=== PATIENT | male | born 1945 | race Caucasian/White ===

== ENCOUNTER 2016-11-19 09:33 | Inpatient (IN) | payer OTHER ==
[2016-11-19] MEDS ORDERED: NS 1,000 ML IV ONE (10:40)
--- NOTE | 2016-11-19 11:00 | EDPHY ---
General - History Smoking Status: Current every day smoker Narrative: CHIEF COMPLAINT: Foot pain, altered mental status HISTORY OF PRESENT ILLNESS: Patient is unable to provide his history of present illness as he is altered. EMS reports that his neighbor called than due to concern for his health and safety. The patient resides reportedly in assisted living and was found wandering from his home multiple mild yesterday. He has no recollection of this, but he does remember going out for a walk. Has complaints of bilateral foot pain with wounds. Has no headache. He has no chest pain or shortness of breath. No abdominal or urinary complaints. EMS reports he has a history of strokes and dementia but he is unable to provide any details about this. His son is not yet at bedside. REVIEW OF SYSTEMS: Ten systems reviewed and are negative unless otherwise noted in the HPI PERTINENT MEDICAL HISTORY: EXAMINATION General Appearance: Alert, no distress Head: normocephalic, atraumatic. No outward signs of trauma per Eyes: Pupils equal and round, no conjunctival pallor or injection. EOMs intact. ENT, Mouth: Mucous membranes moist. Uvula midline. No erythema or edema. Neck: Normal inspection, supple, non-tender. No meningismus. Respiratory: Lungs are clear to auscultation. No wheezing, rhonchi or crackles. Cardiovascular: Regular rate and rhythm. No murmur. Pulses intact distally. Gastrointestinal: Abdomen is soft and nontender. No tympany rigidity. No CVA tenderness. Back: non-tender, no bony abnormalities Neurological: Alert to person and place. Disoriented to time and scenario. Cranial nerves 2-12 grossly intact without facial droop. No pronator drift. No dysmetria. Strength is 5/5 in all limbs. NIH stroke scale: 1 Skin: Warm and dry, no rash. There are skin wounds to the bottom of both feet. These are consistent with blisters that have erupted.. There is erythema of the wound bed. There is no purulence or debris. No surrounding erythema, fluctuance or induration. Extremities: Nontender, no pedal edema Psychiatric: Flat affect. DIFFERENTIAL DIAGNOSES: Including but not limited to acute encephalopathy, stroke, dementia, worsening dementia, sepsis, uremia MDM: 10:35 a.m. Acute mental status change of uncertain duration. The patient does have history of stroke and dementia, but he is reportedly worsening acutely. He was found multiple miles away from his home by police 2 days ago. He has no recollection of the events of the past 2 days. His neighbor resides across from his assisted living residence has expressed ongoing concern for him. The patient has no ability to contribute to his history of present illness at this time. His son is reportedly in route was discussed with him at his time of arrival. I have ordered encephalopathy workup. He has no outward signs of acute stroke. If this were to be a strokes narrow, there is no known time of duration, thus no stroke alert has been initiated. 11:00 a.m. Son is now bedside. He reports that the patient actually resides in independent living. He does have a history of 2 strokes. One was several years ago, 1 was 2 years ago. Since then he has had dementia. However, his dementia is mild. He is normally alert person, place and time. He has difficulty with short-term memory and occasionally is forgetful but is not usually disoriented to time and place. The son reports that he was out of town this weekend, but he received phone call from the patient's residence yesterday morning says that he was found out wandering outside the home. They did not provide any other details. He reports no acute change recently. He does not know any recent illness. He does not have any falls. The patient is on Eliquis and other medications as listed. 11:[address] scan of the head is unremarkable for acute changes. There are chronic changes noted. Chest x-ray is unremarkable. Labs are within normal limits. There is no sign of delirium from illness from this. I suspect that the patient is having worsening dementia, but definitely has acute altered mental status of uncertain etiology. He is afebrile, in no acute distress. He has no meningismus on examination. No evidence of pneumonia or urinary tract infection. I have discussed the case with the hospitalist, the patient will be admitted for further care and for evaluation of residential versus memory unit placement. The son is comfortable with and preferable to this plan. SUPERVISION: Patient was evaluated in conjunction with the supervising physician. Please see their note for details. (Jared King) Discussion: PHYSICIAN DOCUMENTATION: The patient was evaluated and managed by the Physician Meteorological Aide and myself. I have reviewed the chart and agree with the findings and plan of care as documented. In addition, I examined the patient myself at 1146. History confirmed as encephalopathy, chronic wounds on balls of both feet without cellulitis. History confirmed with son. Physical findings as follows: Alert and oriented to month and place but thinks the year is 2014. Admission for further evaluation of encephalopathy including unsafe current living situation. 12-lead EKG interpreted by me; official reading is in trace master. My interpretation is sinus rhythm rate 54 no acute ischemic changes normal intervals. I am the secondary supervising physician. (Mikhail Degroot) - Objective Vital Signs: Initial Vital Signs Temperature (C) 36.9 C 11/19/16 09:40 Heart Rate 57 L 11/19/16 09:40 Respiratory Rate 14 11/19/16 09:40 Blood Pressure 144/92 H 11/19/16 09:40 O2 Sat (%) 94 11/19/16 09:40 O2 Delivery Mode Room Air Allergies/Adverse Reactions: No Known Allergies Allergy (Unverified 11/19/16 09:40) Home Medications: Medication Instructions Recorded Apixaban [Eliquis] 2.5 mg PO BID #60 tab 04/07/15 Aspirin EC [Aspirin EC 81 mg (*)] 81 mg PO DAILY #30 tab 04/07/15 Atorvastatin Calcium [Lipitor 20 20 mg PO DAILY #30 tab 04/07/15 mg (*)] Cholecalciferol Vit D3 [Vitamin D3 2,000 units PO DAILY #30 tab 04/07/15 (*)] Cyanocobalamin [Vitamin B12 (*)] 1,000 mcg PO DAILY #30 tab 04/07/15 Donepezil HCl 10 mg PO HS #30 tablet 04/07/15 Lisinopril [Zestril 5 mg (*)] 5 mg PO DAILY #30 tab 04/07/15 Nitroglycerin [Nitrostat 0.4 mg 0.4 mg SL PRN PRN #1 btl 04/07/15 (*)] Memantine HCl [Namenda 5 mg (*)] 5 mg PO HS 11/19/16 Laboratory Results: Laboratory Results 11/19/16 10:56 11/19/16 10:56 11/19/16 11/19/16 11/19/16 10:56 10:56 10:56 WBC RBC Hgb Hct MCV MCH MCHC RDW Plt Count MPV Neut % (Auto) Lymph % (Auto) [place] % (Auto) Eos % (Auto) Baso % (Auto) Nucleat RBC Rel Count Absolute Neuts (auto) Absolute Lymphs (auto) Absolute Monos (auto) Absolute Eos (auto) Absolute Basos (auto) Absolute Nucleated RBC Immature Gran % Immature Gran # PT 14.3 SEC SEC (12.0-15.0) INR 1.12 (0.83-1.16) APTT 34.0 SEC SEC (23.0-38.0) Sodium 141 mEq/L mEq/L (134-144) Potassium 4.6 mEq/L mEq/L (3.5-5.2) Chloride 107 mEq/L mEq/L (97-110) Carbon Dioxide 26 mEq/l mEq/l (22-31) Anion Gap 8 mEq/L mEq/L (8-16) BUN 39 mg/dL H mg/dL (7-23) Creatinine 1.0 mg/dL mg/dL (0.7-1.3) Estimated GFR > 60 Glucose 98 mg/dL mg/dL (70-100) Calcium 9.2 mg/dL mg/dL (8.5-10.4) Total Bilirubin 1.1 mg/dL mg/dL (0.1-1.4) Conjugated Bilirubin 0.3 mg/dL mg/dL (0.0-0.5) Unconjugated Bilirubin 0.8 mg/dL mg/dL (0.0-1.1) AST 72 IU/L H IU/L (17-59) ALT 44 IU/L IU/L (21-72) Alkaline Phosphatase 63 IU/L IU/L (38-126) Ammonia < 9.0 uMOL/L L uMOL/L (9.0-30.0) Troponin I 0.021 ng/mL ng/mL (0-0.034) NT-Pro-B Natriuret Pep 964 pg/mL H pg/mL (0-125) Total Protein 6.9 g/dL g/dL (6.3-8.2) Albumin 4.2 g/dL g/dL (3.5-5.0) Lipase 208.0 IU/L IU/L (23-300) 11/19/16 10:56 WBC 10.31 10^3/uL H 10^3/uL (3.80-9.50) RBC 4.97 10^6/uL 10^6/uL (4.40-6.38) Hgb 15.6 g/dL g/dL (13.7-17.5) Hct 46.9 % % (40.0-51.0) MCV 94.4 fL fL (81.5-99.8) MCH 31.4 pg pg (27.9-34.1) MCHC 33.3 g/dL g/dL (32.4-36.7) RDW 13.1 % % (11.5-15.2) Plt Count 140 10^3/uL L 10^3/uL (150-400) MPV 12.6 fL H fL (8.7-11.7) Neut % (Auto) 70.0 % % (39.3-74.2) Lymph % (Auto) 19.8 % % (15.0-45.0) [place] % (Auto) 8.5 % % (4.5-13.0) Eos % (Auto) 0.7 % % (0.6-7.6) Baso % (Auto) 0.6 % % (0.3-1.7) Nucleat RBC Rel Count 0.0 % % (0.0-0.2) Absolute Neuts (auto) 7.22 10^3/uL H 10^3/uL (1.70-6.50) Absolute Lymphs (auto) 2.04 10^3/uL 10^3/uL (1.00-3.00) Absolute Monos (auto) 0.88 10^3/uL H 10^3/uL (0.30-0.80) Absolute Eos (auto) 0.07 10^3/uL 10^3/uL (0.03-0.40) Absolute Basos (auto) 0.06 10^3/uL 10^3/uL (0.02-0.10) Absolute Nucleated RBC 0.00 10^3/uL 10^3/uL (0-0.01) Immature Gran % 0.4 % % (0.0-1.1) Immature Gran # 0.04 10^3/uL 10^3/uL (0.00-0.10) PT INR APTT Sodium Potassium Chloride Carbon Dioxide Anion Gap BUN Creatinine Estimated GFR Glucose Calcium Total Bilirubin Conjugated Bilirubin Unconjugated Bilirubin AST ALT Alkaline Phosphatase Ammonia Troponin I NT-Pro-B Natriuret Pep Total Protein Albumin Lipase Medications Given: Discontinued Medications Sodium Chloride (Ns) 1,000 mls @ 0 mls/hr IV ONCE ONE PRN Reason: Wide Open Stop: 11/19/16 10:41 Last Admin: 11/19/16 11:01 Dose: 1,000 mls Departure - Departure Disposition: [facility] Inpatient Acute Clinical Impression: Encephalopathy acute Dementia Qualifiers: Dementia type: unspecified type Dementia behavioral disturbance: with behavioral disturbance Qualified Code(s): F03.91 - Unspecified dementia with behavioral disturbance Blister of foot without infection Qualifiers: Encounter type: initial encounter Laterality: unspecified laterality Qualified Code(s): S90.829A - Blister (nonthermal), unspecified foot, initial encounter Condition: Good
[2016-11-19 11:07] LABS: % IMMATURE GRANULYOCYTES 0.4 % (0.0-1.1); ABSOLUTE IMMATURE GRANULOCYTES 0.04 10^3/uL (0.00-0.10); ADD DIFF? NO; ADD MORPH? NO; ADD SCAN? NO; ATYPICAL LYMPHOCYTE FLAG 10 (0-99); FRAGMENT RBC FLAG 0 (0-99); HEMATOCRIT 46.9 % (40.0-51.0); HEMOGLOBIN 15.6 g/dL (13.7-17.5); LEFT SHIFT FLG 0 (0-99); LIPEMIA HEMOLYSIS FLAG 80 (0-99); MEAN CELL HEMOGLOBIN 31.4 pg (27.9-34.1); MEAN CELL HEMOGLOBIN CONCENTR. 33.3 g/dL (32.4-36.7); MEAN CELL VOLUME 94.4 fL (81.5-99.8); MEAN PLATELET VOLUME 12.6 fL (8.7-11.7); PLATELET CLUMPS FLAG 10 (0-99); PLATELET COUNT 140 10^3/uL (150-400); RED BLOOD CELL COUNT 4.97 10^6/uL (4.40-6.38); RED CELL DISTRIBUTION WIDTH 13.1 % (11.5-15.2)
--- NOTE | 2016-11-19 11:12 | CPEKG ---
Heart Rate: 54 RR Interval: 1111 P-R Interval: 132 QRSD Interval: 102 QT Interval: 468 QTC Interval: 444 P Echo: 31 QRS Echo: 49 T Wave Echo: 71 EKG Severity - NORMAL ECG - EKG Impression: SINUS RHYTHM Electronically Signed By: Mikhail Degroot 19-Nov-2016 12:38:20
[2016-11-19 11:14] LABS: INR 1.12 (0.83-1.16); PROTIME(PATIENT) 14.3 SEC (12.0-15.0)
[2016-11-19 11:16] LABS: ALANINE AMINOTRANSFERASE 44 IU/L (21-72); ALBUMIN 4.2 g/dL (3.5-5.0); ALKALINE PHOSPHATASE 63 IU/L (38-126); ANION GAP 8 mEq/L (8-16); ASPARTATE AMINOTRANSFERASE 72 IU/L (17-59); BILIRUBIN,TOTAL 1.1 mg/dL (0.1-1.4); BILIRUBIN-CONJUGATED 0.3 mg/dL (0.0-0.5); BILIRUBIN-UNCONJUGATED 0.8 mg/dL (0.0-1.1); CALCIUM 9.2 mg/dL (8.5-10.4); CARBON DIOXIDE 26 mEq/l (22-31); CHLORIDE 107 mEq/L (97-110); GLOMERULAR FILTRATION RATE > 60; GLUCOSE 98 mg/dL (70-100); POTASSIUM 4.6 mEq/L (3.5-5.2); SODIUM 141 mEq/L (134-144); TOTAL PROTEIN 6.9 g/dL (6.3-8.2)
[2016-11-19 11:27] LABS: TROPONIN I 0.021 ng/mL (0-0.034)
[2016-11-19] MEDS ORDERED: ONDANSETRON DISINTEGRATING 4 MG TAB PO PRN (13:32)
[2016-11-19] MEDS ORDERED: ONDANSETRON 4 MG/2 ML VIAL IVP PRN (13:32)
[2016-11-19] MEDS ORDERED: ACETAMINOPHEN 325 MG TAB PO PRN (13:32)
--- NOTE | 2016-11-19 14:52 | WOCRNPDOC ---
WOCRN Advanced Assessment Note - Skin Integrity Problem, Advanced Assess Left Pedal Foot Blister Dressing Type: Adaptic, Coban, Kimberly Dressing Description: Clean/Dry, Intact Exudate Amount: Scant Exudate Characteristic(s): Serosanguinous Integumentary Issue Intervention: Visualized Under Dressing Laura Wound Tissue: Macerated Wound Bed Constitution: Smooth Tissue, De-roofed Serous Blister Site Measurement - Head-to-Toe Length X Width X Depth (cm): 5.5x7x0.1 Skin Integrity Problem Comment: No sign of infection or laura wound erythema. Wound bed clean, albeit a bit too moist. Will write orders for antimicrobial foam over contact layer. Change Q2D. Right Pedal Foot Blister Dressing Type: Adaptic, Coban, Kimberly Dressing Description: Clean/Dry, Intact Exudate Characteristic(s): Serosanguinous Integumentary Issue Intervention: Visualized Under Dressing Wound Bed Constitution: De-roofed Serous Blister Site Measurement - Head-to-Toe Length X Width X Depth (cm): 3.8x6.3x0.1 Skin Integrity Problem Comment: No sign of infection or laura wound erythema. Wound bed clean, albeit a bit too moist. Part of the roof of the blister remains around 4oclock and may reattach. Will treat similar to skin tear policy except with antimicrobial foam over contact layer. Will round again Thursday 11/23.
[2016-11-19] MEDS: NS 1,000 ML IV SCH ×2 (15:54→21:50)
--- NOTE | 2016-11-19 16:43 | PDGENHP ---
History and Physical - Chief Complaint dementia, wandered 10 miles from independent living - History of Present Illness 70 male with h/o advanced dementia was found by the police 2 days prior to admission after wandering 10 miles from his independent living facility at [facility]. His son came to check on him today and found b/l plantar deroofed blisters on his feet and brought him to the ED. He has had no fevers. No chest pain, shortness of breath, abdominal pain, N/V/D or urinary symptoms. He has h/o alcohol abuse, but according to son, quit drinking 7 yrs ago. He has done well at [facility], this is the first time he has wandered. History Information - Allergies/Home Medication List Allergies/Adverse Reactions: No Known Allergies Allergy (Unverified 11/19/16 09:40) Home Medications: Memantine HCl [Namenda 5 mg (*)] 5 mg PO HS 11/19/16 [Last Taken 11/18/16] I have personally reviewed and updated: family history, medical history, social history, surgical history - Past Medical History coronary artery disease, CVA, dementia, hypertension - Surgical History Additional surgical history: hip replacement - Family History Positive for: non-pertinent - Social History Smoking Status: Never smoked Alcohol Use: Other (h/o etoh, quit 7 yrs) Drug Use: Marijuana (smokes MJ all day every day according to pt) Review of Systems ROS: 10pt was reviewed & negative except for what was stated in HPI & below Physical Exam Temp Pulse Resp BP Pulse Ox 36.9 C 66 12 158/99 H 93 11/19/16 15:27 11/19/16 15:27 11/19/16 15:27 11/19/16 15:27 11/19/16 15:27 Constitutional: no apparent distress Eyes: PERRL Ears, Nose, Mouth, Throat: moist mucous membranes Cardiovascular: regular rate and rhythym Respiratory: no respiratory distress, clear to auscultation Gastrointestinal: normoactive bowel sounds, soft, non-tender abdomen Skin: warm Musculoskeletal: full muscle strength Neurologic: other (no facial droop, neg pronator drift, no focal neurodeficits. digits forward to 6. alert and oriented to person only) Psychiatric: poor insight, poor judgement, poor memory Lab Data & Imaging Review 11/19/16 10:56 11/19/16 10:56 WBC 10.31 10^3/uL (3.80-9.50) H 11/19/16 10:56 RBC 4.97 10^6/uL (4.40-6.38) 11/19/16 10:56 Hgb 15.6 g/dL (13.7-17.5) 11/19/16 10:56 Hct 46.9 % (40.0-51.0) 11/19/16 10:56 MCV 94.4 fL (81.5-99.8) 11/19/16 10:56 MCH 31.4 pg (27.9-34.1) 11/19/16 10:56 MCHC 33.3 g/dL (32.4-36.7) 11/19/16 10:56 RDW 13.1 % (11.5-15.2) 11/19/16 10:56 Plt Count 140 10^3/uL (150-400) L 11/19/16 10:56 MPV 12.6 fL (8.7-11.7) H 11/19/16 10:56 Neut % (Auto) 70.0 % (39.3-74.2) 11/19/16 10:56 Lymph % (Auto) 19.8 % (15.0-45.0) 11/19/16 10:56 [place] % (Auto) 8.5 % (4.5-13.0) 11/19/16 10:56 Eos % (Auto) 0.7 % (0.6-7.6) 11/19/16 10:56 Baso % (Auto) 0.6 % (0.3-1.7) 11/19/16 10:56 Nucleat RBC Rel Count 0.0 % (0.0-0.2) 11/19/16 10:56 Absolute Neuts (auto) 7.22 10^3/uL (1.70-6.50) H 11/19/16 10:56 Absolute Lymphs (auto) 2.04 10^3/uL (1.00-3.00) 11/19/16 10:56 Absolute Monos (auto) 0.88 10^3/uL (0.30-0.80) H 11/19/16 10:56 Absolute Eos (auto) 0.07 10^3/uL (0.03-0.40) 11/19/16 10:56 Absolute Basos (auto) 0.06 10^3/uL (0.02-0.10) 11/19/16 10:56 Absolute Nucleated RBC 0.00 10^3/uL (0-0.01) 11/19/16 10:56 Immature Gran % 0.4 % (0.0-1.1) 11/19/16 10:56 Immature Gran # 0.04 10^3/uL (0.00-0.10) 11/19/16 10:56 PT 14.3 SEC (12.0-15.0) 11/19/16 10:56 INR 1.12 (0.83-1.16) 11/19/16 10:56 APTT 34.0 SEC (23.0-38.0) 11/19/16 10:56 Sodium 141 mEq/L (134-144) 11/19/16 10:56 Potassium 4.6 mEq/L (3.5-5.2) 11/19/16 10:56 Chloride 107 mEq/L (97-110) 11/19/16 10:56 Carbon Dioxide 26 mEq/l (22-31) 11/19/16 10:56 Anion Gap 8 mEq/L (8-16) 11/19/16 10:56 BUN 39 mg/dL (7-23) H 11/19/16 10:56 Creatinine 1.0 mg/dL (0.7-1.3) 11/19/16 10:56 Estimated GFR > 60 11/19/16 10:56 Glucose 98 mg/dL (70-100) 11/19/16 10:56 Calcium 9.2 mg/dL (8.5-10.4) 11/19/16 10:56 Total Bilirubin 1.1 mg/dL (0.1-1.4) 11/19/16 10:56 Conjugated Bilirubin 0.3 mg/dL (0.0-0.5) 11/19/16 10:56 Unconjugated Bilirubin 0.8 mg/dL (0.0-1.1) 11/19/16 10:56 AST 72 IU/L (17-59) H 11/19/16 10:56 ALT 44 IU/L (21-72) 11/19/16 10:56 Alkaline Phosphatase 63 IU/L (38-126) 11/19/16 10:56 Ammonia < 9.0 uMOL/L (9.0-30.0) L 11/19/16 10:56 Troponin I 0.021 ng/mL (0-0.034) 11/19/16 10:56 NT-Pro-B Natriuret Pep 964 pg/mL (0-125) H 11/19/16 10:56 Total Protein 6.9 g/dL (6.3-8.2) 11/19/16 10:56 Albumin 4.2 g/dL (3.5-5.0) 11/19/16 10:56 Lipase 208.0 IU/L (23-300) 11/19/16 10:56 Assessment & Plan Assessment: Encephalopathy acute (Acute) - in setting of advanced dementia and h/o CVA, likely some volume depletion given recent wandering event. No e/o infection. No new meds. -Check brain MRI to r/o acute or subacute CVA Dementia (Acute) - Advanced. Continue Aricept and Namenda. Discussed with son pt will likely need placement in memory care to due wandering risk. -PT/OT, cog eval Blister of foot without infection (Acute) - these do not appear infected. Will request wound care consult. CAD - h/o 5v CABG. Stable, no CP. Cont outpt meds. CVA - +h/o A fib, NSR here. Cont Eliquis, ASA, statin. Azotemia - suspect pre-renal. Will give gentle IVF's Full code Dispo - CM consult requested. Will likely need placement, consider memory care given wandering history.
[2016-11-19] MEDS ORDERED: NITROGLYCERIN 0.4 MG BTL SL PRN (16:49)
[2016-11-19] MEDS: APIXABAN 2.5 MG TAB PO SCH (20:40)
[2016-11-19] MEDS: DONEPEZIL HCL 5 MG TAB PO SCH (20:41)
[2016-11-19] MEDS: MEMANTINE HCL 5 MG TAB PO SCH (20:41)
[2016-11-20 04:49] LABS: % IMMATURE GRANULYOCYTES 0.3 % (0.0-1.1); ABSOLUTE IMMATURE GRANULOCYTES 0.03 10^3/uL (0.00-0.10); ADD DIFF? NO; ADD MORPH? NO; ADD SCAN? NO; ATYPICAL LYMPHOCYTE FLAG 0 (0-99); FRAGMENT RBC FLAG 10 (0-99); HEMATOCRIT 45.4 % (40.0-51.0); HEMOGLOBIN 15.1 g/dL (13.7-17.5); LEFT SHIFT FLG 0 (0-99); LIPEMIA HEMOLYSIS FLAG 80 (0-99); MEAN CELL HEMOGLOBIN 32.2 pg (27.9-34.1); MEAN CELL HEMOGLOBIN CONCENTR. 33.3 g/dL (32.4-36.7); MEAN CELL VOLUME 96.8 fL (81.5-99.8); MEAN PLATELET VOLUME 12.1 fL (8.7-11.7); PLATELET CLUMPS FLAG 20 (0-99); PLATELET COUNT 126 10^3/uL (150-400); RED BLOOD CELL COUNT 4.69 10^6/uL (4.40-6.38); RED CELL DISTRIBUTION WIDTH 13.1 % (11.5-15.2)
[2016-11-20 05:07] LABS: ALANINE AMINOTRANSFERASE 44 IU/L (21-72); ALBUMIN 3.4 g/dL (3.5-5.0); ALKALINE PHOSPHATASE 54 IU/L (38-126); ANION GAP 8 mEq/L (8-16); ASPARTATE AMINOTRANSFERASE 54 IU/L (17-59); CALCIUM 8.6 mg/dL (8.5-10.4); CARBON DIOXIDE 23 mEq/l (22-31); CHLORIDE 111 mEq/L (97-110); CREATININE 0.9 mg/dL (0.7-1.3); GLOMERULAR FILTRATION RATE > 60; GLUCOSE 95 mg/dL (70-100); POTASSIUM 4.5 mEq/L (3.5-5.2); SODIUM 142 mEq/L (134-144); TOTAL PROTEIN 6.1 g/dL (6.3-8.2)
[2016-11-20] MEDS: NS 1,000 ML IV SCH (07:47)
[2016-11-20] MEDS: CHOLECALCIFEROL VIT D3 2,000 UNITS TAB/CAP PO SCH (09:12)
[2016-11-20] MEDS: APIXABAN 2.5 MG TAB PO SCH ×2 (09:12→20:14)
[2016-11-20] MEDS: LISINOPRIL 5 MG TAB PO SCH (09:12)
[2016-11-20] MEDS: ATORVASTATIN CALCIUM 20 MG TAB PO SCH (09:12)
[2016-11-20] MEDS: ASPIRIN EC 81 MG TAB PO SCH (09:12)
--- NOTE | 2016-11-20 10:25 | HOSPPROG ---
Hospitalist Progress Note Assessment/Plan: Encephalopathy acute (Acute) - Improving, in setting of advanced dementia and h/ o CVA, likely some volume depletion given recent prolonged wandering event. No e/o infection. No new meds. No acute changes on MRI. Dementia (Acute) - Advanced. Continue Aricept and Namenda. Discussed with son pt will likely need placement in memory care to due wandering risk. -PT/OT, cog eval planned Blister of b/l plantar surface of feet without infection (Acute) - Likely due to prolonged wandering event (found 10 miles from his home). These do not appear infected. Cont wound care. CAD - h/o 5v CABG. Stable, no CP. Cont outpt meds. CVA - +h/o A fib, NSR here. Cont Eliquis, ASA, statin. Azotemia - suspect pre-renal. Improving, cont IVF's at lower rate tonight. FEN - Change IVF's to 1/2 NS due to hyperchloremia Full code Dispo - CM consult for placement options, ?memory care Subjective: Pt is resting comfortably, has no complaints. No CP or SOB. No fevers. He has not ambulated since admission due to wounds on feet. Objective: Vital Signs Temp Pulse Resp BP Pulse Ox 37.1 C 62 16 125/87 H 95 11/20/16 08:10 11/20/16 08:10 11/20/16 08:10 11/20/16 08:10 11/20/16 08:10 Laboratory Results 11/20/16 04:28 11/20/16 04:28 11/19/16 11/20/16 11/21/16 05:59 05:59 05:59 Intake Total 1880 Output Total 400 Balance 1480 PT 14.3 SEC (12.0-15.0) 11/19/16 10:56 INR 1.12 (0.83-1.16) 11/19/16 10:56 - Physical Exam Constitutional: no apparent distress Eyes: PERRL Ears, Nose, Mouth, Throat: moist mucous membranes Cardiovascular: regular rate and rhythym Respiratory: no respiratory distress Gastrointestinal: normoactive bowel sounds, soft, non-tender abdomen Skin: warm Musculoskeletal: other (b/l plantar foot blisters deroofed, no purulence or associated erythema) Psychiatric: poor insight, poor judgement, poor memory ICD10 Worksheet Patient Problems: Problems Problem Status Onset Blister of foot without infection Acute Dementia Acute Encephalopathy acute Acute Chest pain Acute Coronary artery disease Acute Postoperative atrial fibrillation Acute S/P CABG x 5 Acute Memory loss due to medical condition Chronic
[2016-11-20] MEDS ORDERED: 1/2 NS 1,000 ML IV SCH (10:30)
[2016-11-20] MEDS: DONEPEZIL HCL 5 MG TAB PO SCH (20:15)
[2016-11-20] MEDS: MEMANTINE HCL 5 MG TAB PO SCH (20:15)
[2016-11-21 04:47] LABS: HEMATOCRIT 44.5 % (40.0-51.0); HEMOGLOBIN 15.1 g/dL (13.7-17.5); MEAN CELL HEMOGLOBIN 32.6 pg (27.9-34.1); MEAN CELL HEMOGLOBIN CONCENTR. 33.9 g/dL (32.4-36.7); MEAN CELL VOLUME 96.1 fL (81.5-99.8); RED BLOOD CELL COUNT 4.63 10^6/uL (4.40-6.38); RED CELL DISTRIBUTION WIDTH 12.9 % (11.5-15.2)
[2016-11-21 05:16] LABS: ANION GAP 7 mEq/L (8-16); CALCIUM 8.9 mg/dL (8.5-10.4); CARBON DIOXIDE 26 mEq/l (22-31); CHLORIDE 109 mEq/L (97-110); CREATININE 0.9 mg/dL (0.7-1.3); GLOMERULAR FILTRATION RATE > 60; GLUCOSE 96 mg/dL (70-100); POTASSIUM 4.5 mEq/L (3.5-5.2); SODIUM 142 mEq/L (134-144)
[2016-11-21] MEDS: CHOLECALCIFEROL VIT D3 2,000 UNITS TAB/CAP PO SCH (08:29)
[2016-11-21] MEDS: ASPIRIN EC 81 MG TAB PO SCH (08:29)
[2016-11-21] MEDS: ATORVASTATIN CALCIUM 20 MG TAB PO SCH (08:29)
[2016-11-21] MEDS: APIXABAN 2.5 MG TAB PO SCH ×2 (08:29→20:19)
[2016-11-21] MEDS: LISINOPRIL 5 MG TAB PO SCH (08:29)
--- NOTE | 2016-11-21 11:17 | PDIAF ---
- Diagnosis Diagnosis: Dementia, b/l plantar foot blisters Code Status: Full Code - Medication Management Discharge Medications: Medications to Continue on Transfer Apixaban [Eliquis] 2.5 mg PO BID #60 tab 04/07/15 [Last Taken 11/19/16] Aspirin EC [Aspirin EC 81 mg (*)] 81 mg PO DAILY #30 tab 04/07/15 [Last Taken ] Atorvastatin Calcium [Lipitor 20 mg (*)] 20 mg PO DAILY #30 tab 04/07/15 [Last Taken 11/19/16] Cholecalciferol Vit D3 [Vitamin D3 (*)] 2,000 units PO DAILY #30 tab 04/07/15 [ Last Taken 11/19/16] Cyanocobalamin [Vitamin B12 (*)] 1,000 mcg PO DAILY #30 tab 04/07/15 [Last Taken 11/19/16] Donepezil HCl 10 mg PO HS #30 tablet 04/07/15 [Last Taken 11/18/16] Lisinopril [Zestril 5 mg (*)] 5 mg PO DAILY #30 tab 04/07/15 [Last Taken ] Nitroglycerin [Nitrostat 0.4 mg (*)] 0.4 mg SL PRN PRN #1 btl 04/07/15 [Last Taken Unknown] Memantine HCl [Namenda 5 mg (*)] 5 mg PO HS 11/19/16 [Last Taken 11/18/16] Acetaminophen [Tylenol 325mg (*)] 650 mg PO Q4HRS PRN #90 tab 11/21/16 [Last Taken Unknown] Discharge Medications: Refer to the Discharge Home Medication list for PRN reason. - Orders Services needed: Home Care, Registered Nurse, Physical Therapy, Occupational Therapy Home Care Face to Face: I certify that this patient was under my care and that I had the required [id number] encounter meeting the encounter requirements on the discharge day. My findings support the fact that the patient is homebound as defined in CMS Chapter 7 Medicare Benefits Manual 30.1.1, The condition of the patient is such that there exists a normal inability to leave home and consequently, leaving home would require a considerable and taxing effort. Diet Recommendation: no restrictions on diet Additional: Wound care needed for b/l plantar foot blisters - Follow Up Care Current Providers and Referrals: Unknown,Unknown [Unknown] - As per Instructions
--- NOTE | 2016-11-21 16:12 | HOSPPROG ---
Hospitalist Progress Note Assessment/Plan: Encephalopathy acute (Acute) - Improving, in setting of advanced dementia and h/ o CVA, likely some volume depletion given recent prolonged wandering event. No e/o infection. No new meds. No acute changes on MRI. Dementia (Acute) - Advanced. Continue Aricept and Namenda. Discussed with son pt will need higher LOC, consider memory care. -PT/OT, cog eval -cont outpt meds Blisters of b/l plantar surface of feet without infection (Acute) - Likely due to prolonged wandering event (found 10 miles from his home). These do not appear infected. Cont wound care. THC use/abuse - he gives h/o smoking MJ "all day every day". This certainly increases his risk for wandering and confusion. Encourage cessation. CAD - h/o 5v CABG. Stable, no CP. Cont outpt meds. CVA - +h/o A fib, NSR here. Cont Eliquis, ASA, statin. Azotemia - suspect pre-renal. Improved with IVF's. Full code Dispo - CM following for placement options, likely dc to SNF in am (needs 3rd midnight tonight) Subjective: Pt comfortable, working with speech on cog eval. Denies pain, fevers, CP or SOB. He ambulated in halls. Taking good po. Objective: Vital Signs Temp Pulse Resp BP Pulse Ox 37.0 C 165 H 16 152/114 H 94 11/21/16 16:01 11/21/16 16:01 11/21/16 16:01 11/21/16 16:01 11/21/16 16:01 Laboratory Results 11/21/16 04:33 11/21/16 04:33 11/20/16 11/21/16 11/22/16 05:59 05:59 05:59 Intake Total 1880 1200 Output Total 400 Balance 1480 1200 PT 14.3 SEC (12.0-15.0) 11/19/16 10:56 INR 1.12 (0.83-1.16) 11/19/16 10:56 - Physical Exam Constitutional: no apparent distress Eyes: PERRL Ears, Nose, Mouth, Throat: moist mucous membranes Cardiovascular: regular rate and rhythym Respiratory: no respiratory distress, clear to auscultation Gastrointestinal: normoactive bowel sounds, soft, non-tender abdomen Skin: warm Musculoskeletal: full muscle strength Psychiatric: poor insight, poor judgement, poor memory ICD10 Worksheet Patient Problems: Problems Problem Status Onset Blister of foot without infection Acute Dementia Acute Encephalopathy acute Acute Chest pain Acute Coronary artery disease Acute Postoperative atrial fibrillation Acute S/P CABG x 5 Acute Memory loss due to medical condition Chronic
--- NOTE | 2016-11-21 16:45 | CPEKG ---
Heart Rate: 165 RR Interval: 364 QRSD Interval: 86 QT Interval: 312 QTC Interval: 517 P [place]: 0 QRS [place]: 74 T Wave [place]: 74 EKG Severity - ABNORMAL ECG - EKG Impression: SUPRAVENTRICULAR TACHYCARDIA -- New since November 19, 2016 EKG Impression: ST DEPRESSION, PROBABLY RATE RELATED EKG Impression: Possible right ventricular hypertrophy or old posterior myocardial infarction Electronically Signed By: Alejandro Lucio 21-Nov-2016 20:18:46
[2016-11-21] MEDS ORDERED: METOPROLOL TARTRATE 25 MG TAB PO ONE (16:51)
[2016-11-21] MEDS ORDERED: ADENOSINE 6 MG/2 ML VIAL IVP PRN (17:31)
[2016-11-21] MEDS: DONEPEZIL HCL 5 MG TAB PO SCH (20:19)
[2016-11-21] MEDS: MEMANTINE HCL 5 MG TAB PO SCH (20:43)
[2016-11-22] MEDS ORDERED: METOPROLOL TARTRATE 25 MG TAB PO SCH ×2 (09:00)
[2016-11-22] MEDS: ASPIRIN EC 81 MG TAB PO SCH (09:55)
[2016-11-22] MEDS: APIXABAN 2.5 MG TAB PO SCH (09:55)
[2016-11-22] MEDS: ATORVASTATIN CALCIUM 20 MG TAB PO SCH (09:55)
[2016-11-22] MEDS: LISINOPRIL 5 MG TAB PO SCH (09:55)
[2016-11-22] MEDS: CHOLECALCIFEROL VIT D3 2,000 UNITS TAB/CAP PO SCH (09:55)
--- NOTE | 2016-11-22 10:07 | PDIAF ---
- Diagnosis Diagnosis: Dementia, b/l plantar foot blisters, SVT vs A Flutter Code Status: Full Code - Medication Management Discharge Medications: Medications to Continue on Transfer Apixaban [Eliquis] 2.5 mg PO BID #60 tab 04/07/15 [Last Taken 11/19/16] Aspirin EC [Aspirin EC 81 mg (*)] 81 mg PO DAILY #30 tab 04/07/15 [Last Taken ] Atorvastatin Calcium [Lipitor 20 mg (*)] 20 mg PO DAILY #30 tab 04/07/15 [Last Taken 11/19/16] Cholecalciferol Vit D3 [Vitamin D3 (*)] 2,000 units PO DAILY #30 tab 04/07/15 [ Last Taken 11/19/16] Cyanocobalamin [Vitamin B12 (*)] 1,000 mcg PO DAILY #30 tab 04/07/15 [Last Taken 11/19/16] Donepezil HCl 10 mg PO HS #30 tablet 04/07/15 [Last Taken 11/18/16] Lisinopril [Zestril 5 mg (*)] 5 mg PO DAILY #30 tab 04/07/15 [Last Taken ] Nitroglycerin [Nitrostat 0.4 mg (*)] 0.4 mg SL PRN PRN #1 btl 04/07/15 [Last Taken Unknown] Memantine HCl [Namenda 5 mg (*)] 5 mg PO HS 11/19/16 [Last Taken 11/18/16] Acetaminophen [Tylenol 325mg (*)] 650 mg PO Q4HRS PRN #90 tab 11/21/16 [Last Taken Unknown] Metoprolol Tartrate [Lopressor 25 mg (*)] 12.5 mg PO BID #0 tab 11/22/16 [Last Taken Unknown] Discharge Medications: Refer to the Discharge Home Medication list for PRN reason. - Orders Services needed: Home Care, Registered Nurse, Physical Therapy, Occupational Therapy Home Care Face to Face: I certify that this patient was under my care and that I had the required [id number] encounter meeting the encounter requirements on the discharge day. My findings support the fact that the patient is homebound as defined in CMS Chapter 7 Medicare Benefits Manual 30.1.1, The condition of the patient is such that there exists a normal inability to leave home and consequently, leaving home would require a considerable and taxing effort. Diet Recommendation: no restrictions on diet Diet Texture: Regular Texture Diet Additional: Wound care needed for b/l plantar foot blisters - Follow Up Care Current Providers and Referrals: Unknown,Unknown [Unknown] - As per Instructions
--- NOTE | 2016-11-22 10:11 | PDDCSUM ---
Discharge Summary Discharge Summary: DISCHARGE DIAGNOSES: -Acute encephalopathy multifactorial -Wandering -Marijuana abuse -multiple open skin lesions from friction plantar surface of both feet from extensive walking -dementia -supraventricular tachycardia versus atrial flutter; chads Vasc score 1, aspirin therapy indicated HOSPITAL COURSE SUMMARY: This patient with known dementia and ongoing daily marijuana use was found wandering and was 10 miles from his home confused. He had extensive blisters on the plantar aspects of both feet that had opened. His pro in the hospital. There is no evidence of infection, cardiac illness, pulmonary illness, or internal organ dysfunction. He was treated conservatively here and had good improvement back to his baseline dementia. His foot wounds were treated with wound care nursing. On the 3rd day of his hospitalization the patient developed some tachycardia and was noted to have what appears is most likely SVT though atrial flutter could not be ruled out. There was no symptom or sign of angina or heart failure with this. It resolved spontaneously when the patient coughed. The episode lasted several minutes and did not recur. In the event that this was atrial flutter, and his chads Vasc score is at 1, and particularly given his dementia and wandering aspirin is indicated as opposed to anticoagulation. At this point the patient is medically stable for discharge from the hospital. However due to his mentation issues as well as his foot wounds as well as other ongoing problems he will require more supervision and care than can be afforded him at home at this time. He is therefore transferred to local [facility]dc facility for ongoing rehabilitation, wound care, supervision of activities and medications. MEDICATION CHANGES: Addition of daily aspirin 81 mg, and metoprolol 12.5 mg twice daily FOLLOW-UP PLAN: Referral now to physicians at the fdc facility, followed by return to his primary care physician upon discharge from that facility Greater than 35 minutes bedside and care coordination time today
[2016-11-22] MEDS ORDERED: PNEUMOC 13-VAL CONJ-DIP CRM/PF 0.5 ML SYR IM ONE (11:03)
[2016-11-22 11:14] VITALS: BP 158/100; PULSE 51; RESP 15; TEMP 98.3; O2SAT 91
== END 2016-11-22 14:26 | DRG 71 ==
LOC: EDUNIT# → F3E 15:22 → F2W 11-21 17:55
PROVIDERS: ADMIT Hospitalist; ATTEND Hospitalist
DX: G93.49 Other encephalopathy (principal); F03.91 Unspecified dementia, unspecified severity, with behavioral disturbance; I47.1 Supraventricular tachycardia; F12.10 Cannabis abuse, uncomplicated; S90.821A Blister (nonthermal), right foot, initial encounter; S90.822A Blister (nonthermal), left foot, initial encounter; I25.10 Atherosclerotic heart disease of native coronary artery without angina pectoris; I10 Essential (primary) hypertension; Z91.83 Wandering in diseases classified elsewhere; Z86.73 Personal history of transient ischemic attack (TIA), and cerebral infarction without residual deficits; Z96.649 Presence of unspecified artificial hip joint; Z72.0 Tobacco use
CPT/HCPCS: 80305; 92523-GN; 97116-GP; 97162-GP; 97165-GO; 97530-GO; G8978-GP-CJ; G8979-GP-CI; G8987-GO-CI; G8988-GO-CI; G9168-GN-CL; G9169-GN-CK; J0153

== ENCOUNTER 2017-07-20 20:17 | Inpatient (IN) | payer OTHER ==
--- NOTE | 2017-07-20 20:21 | EDPHY ---
H & P Time Seen by Provider: 07/20/17 20:21 HPI/ROS: CHIEF COMPLAINT: Acute dyspnea HISTORY OF PRESENT ILLNESS: The patient's history is limited by advanced dementia. He is brought in by his his neighbor with a reported history of severe intermittent dyspnea over the past day. He has had no history of fever, cough or congestion. The patient does report dyspnea in the ED. The patient lives in a independent living facility. He denies acute pain. The patient does have a history of coronary artery bypass grafting in 2014 which was complicated by postoperative AFib. The patient also has a history of CVA x2. The patient was hospitalized in October of this year at after he was found wandering from his independent living facility. At that time the patient appears to have been on Eliquis. The patient was noted in triage to have a heart rate of 255 was brought emergently into the resuscitation room. REVIEW OF SYSTEMS: A comprehensive 10 point review of systems is unobtainable secondary to his severe dementia. Source: Patient Exam Limitations: No limitations - Medical/Surgical History Hx Asthma: No Hx Chronic Respiratory Disease: No Hx Diabetes: No Hx Cardiac Disease: Yes Hx Renal Disease: No Hx Cirrhosis: No Hx Alcoholism: No Hx HIV/AIDS: No Hx Splenectomy or Spleen Trauma: No Other PMH: HTN, DEMENTIA, CVA'S X 2 2011. RIGHT HIP REPLACEMENT. Bypass X4 - Social History Smoking Status: Never smoked - Physical Exam Exam: General Appearance: Elderly male, mild respiratory distress Eyes: Pupils equal and round no pallor or injection ENT, Mouth: Mucous membranes moist Respiratory: There are no retractions, lungs are clear to auscultation Cardiovascular: Extreme tachycardia, regular rate Gastrointestinal: Abdomen is soft and nontender, no masses, bowel sounds normal Neurological: 5/5 strength all 4 extremities, lower and oriented x1 which is baseline Skin: Warm and dry, no rashes Musculoskeletal: Neck is supple nontender Extremities: symmetrical, full range of motion Constitutional: Initial Vital Signs Heart Rate 258 H 07/20/17 20:28 Respiratory Rate 30 H 07/20/17 20:28 Blood Pressure 145/80 H 07/20/17 20:28 O2 Sat (%) 93 07/20/17 20:28 O2 Delivery Mode Nasal Cannula O2 (L/minute) 2 Allergies/Adverse Reactions: No Known Allergies Allergy (Unverified 07/20/17 20:22) Home Medications: Medication Instructions Recorded Apixaban [Eliquis] 2.5 mg PO BID #60 tab 04/07/15 Aspirin EC [Aspirin EC 81 mg (*)] 81 mg PO DAILY #30 tab 04/07/15 Donepezil HCl 10 mg PO HS #30 tablet 04/07/15 Lisinopril [Zestril 5 mg (*)] 5 mg PO DAILY #30 tab 04/07/15 Nitroglycerin [Nitrostat 0.4 mg 0.4 mg SL PRN PRN #1 btl 04/07/15 (*)] Memantine HCl [Namenda 5 mg (*)] 5 mg PO HS 11/19/16 Atorvastatin Calcium [Lipitor 20 10 mg PO HS 07/20/17 mg (*)] Cholecalciferol Vit D3 [Vitamin D3 1,000 units PO DAILY 07/20/17 (*)] Medical Decision Making - Diagnostics EKG Interpretation: EKG: Complete interpretation has been separately recorded in the [employer] archive. Summary impression: Atrial flutter with 2-1 conduction Imaging Results: Chest x-ray AP: Images reviewed by myself, cardiomegaly and congestive heart failure present. Procedures: Procedure: Limited transthoracic echocardiogram. A limited transthoracic echocardiogram was performed and interpreted by myself for cardiomegaly. Limited transthoracic echocardiogram: The pericardium was visualized and found to be negative for pericardial fluid. Cardiac activity was present. The study was negative for pericardial effusion. ED Course/Re-evaluation: The patient presents to the ED with a heart rate of 250. He was brought emergently into the resuscitation room. He was placed on a threat monitoring analyst which demonstrated a narrow complex tachycardia. Patient received (2) 12 mg boluses of adenosine. This converted the patient's neuro complex tachycardia with a rate of 250 to neuro complex tachycardia with a rate of 140 consistent with atrial flutter. The patient received a 25 mg diltiazem bolus and will be started on a diltiazem drip. The patient was noted to have congestive heart failure and cardiomegaly on his chest x-ray. He was re-examined at 9:00 p.m.. His heart rate is currently 140, a flutter with 2-1 conduction is present, blood pressure 114/81. The patient is currently on nasal cannula oxygen with an O2 sat of 97% The patient will require admission to the hospital. I discussed the case with Dr. Peña from the hospitalist service. The patient received 20 mg of IV Lasix as he has evidence of CHF on his chest x-ray. Consultation was made with Dr. Cervantes from Cardiology. He has requested the patient be kept NPO after midnight. Differential Diagnosis: Differential diagnosis considered includes pulmonary edema, arrhythmia, myocardial infarction, dehydration, metabolic abnormality, renal failure Critical Care Time: Critical care time exclusive of procedures and exclusive of the PA's time was 35 minutes, performed by myself, Erick Vinson MD. The patient presents to the ED with severe tachycardia with a heart rate in the 250s. The patient received chemical cardioversion with adenosine and diltiazem. He received diltiazem bolus and was started on a diltiazem drip. The patient has evidence of acute congestive heart failure from his arrhythmia. The patient received IV Lasix. - Data Points Laboratory Results: Laboratory Results 07/20/17 20:35 07/20/17 20:35 07/20/17 07/20/17 20:35 20:35 WBC 10.96 10^3/uL H 10^3/uL (3.80-9.50) RBC 4.90 10^6/uL 10^6/uL (4.40-6.38) Hgb 16.1 g/dL g/dL (13.7-17.5) Hct 48.0 % % (40.0-51.0) MCV 98.0 fL fL (81.5-99.8) MCH 32.9 pg pg (27.9-34.1) MCHC 33.5 g/dL g/dL (32.4-36.7) RDW 13.5 % % (11.5-15.2) Plt Count 142 10^3/uL L 10^3/uL (150-400) MPV 12.7 fL H fL (8.7-11.7) Neut % (Auto) 69.0 % % (39.3-74.2) Lymph % (Auto) 20.6 % % (15.0-45.0) [place] % (Auto) 8.5 % % (4.5-13.0) Eos % (Auto) 0.6 % % (0.6-7.6) Baso % (Auto) 0.8 % % (0.3-1.7) Nucleat RBC Rel Count 0.0 % % (0.0-0.2) Absolute Neuts (auto) 7.55 10^3/uL H 10^3/uL (1.70-6.50) Absolute Lymphs (auto) 2.26 10^3/uL 10^3/uL (1.00-3.00) Absolute Monos (auto) 0.93 10^3/uL H 10^3/uL (0.30-0.80) Absolute Eos (auto) 0.07 10^3/uL 10^3/uL (0.03-0.40) Absolute Basos (auto) 0.09 10^3/uL 10^3/uL (0.02-0.10) Absolute Nucleated RBC 0.00 10^3/uL 10^3/uL (0-0.01) Immature Gran % 0.5 % % (0.0-1.1) Immature Gran # 0.06 10^3/uL 10^3/uL (0.00-0.10) Sodium 145 mEq/L H mEq/L (134-144) Potassium 4.3 mEq/L mEq/L (3.5-5.2) Chloride 109 mEq/L mEq/L (97-110) Carbon Dioxide 21 mEq/l L mEq/l (22-31) Anion Gap 15 mEq/L mEq/L (8-16) BUN 35 mg/dL H mg/dL (7-23) Creatinine 1.4 mg/dL H mg/dL (0.7-1.3) Estimated GFR 50 Glucose 226 mg/dL H mg/dL (70-100) Calcium 9.1 mg/dL mg/dL (8.5-10.4) Troponin I 0.028 ng/mL ng/mL (0.000-0.034) Medications Given: Discontinued Medications Adenosine (Adenosine) 12 mg IVP EDNOW ONE Stop: 07/20/17 20:34 Last Admin: 07/20/17 20:30 Dose: 12 mg Adenosine (Adenosine) 12 mg IVP EDNOW ONE Stop: 07/20/17 20:40 Last Admin: 07/20/17 20:34 Dose: 12 mg Diltiazem HCl (Cardizem 25 Mg/5 Ml Vial) 25 mg IVP EDNOW ONE Stop: 07/20/17 20:42 Last Admin: 07/20/17 20:47 Dose: 25 mg Furosemide (Lasix Injection) 20 mg IVP EDNOW ONE Stop: 07/20/17 21:11 Last Admin: 07/20/17 21:29 Dose: 20 mg Sodium Chloride (Ns) 1,000 mls @ 3,000 mls/hr IV ONCE ONE Stop: 07/20/17 21:00 Last Admin: 07/20/17 20:44 Dose: 1,000 mls Diltiazem/Dextrose (Diltiazem 125mg/125ml (Premix)) 125 mls @ 0 mls/hr IV EDNOW ONE; As Directed PRN Reason: Protocol Stop: 07/20/17 21:01 Last Admin: 07/20/17 20:54 Dose: 125 mls Departure - Departure Disposition: [facility] Inpatient Acute Clinical Impression: Atrial flutter, Acute exacerbation of congestive heart failure Condition: Fair
[2017-07-20] MEDS ORDERED: ADENOSINE 6 MG/2 ML VIAL IVP ONE ×2 (20:33→20:39)
--- NOTE | 2017-07-20 20:38 | CPEKG ---
Heart Rate: 135 RR Interval: 444 P-R Interval: 172 QRSD Interval: 94 QT Interval: 292 QTC Interval: 438 P [place]: 231 QRS [place]: 79 T Wave [place]: -38 EKG Severity - ABNORMAL ECG - EKG Impression: ATRIAL FLUTTER WITH 2:1 AV BLOCK Electronically Signed By: Erick Vinson 20-Jul-2017 21:39:08
[2017-07-20] MEDS ORDERED: DILTIAZEM 125 MG in D5W 125 ML IV ONE (20:41)
[2017-07-20] MEDS ORDERED: DILTIAZEM 25 MG/5 ML VIAL IVP ONE (20:41)
[2017-07-20] MEDS ORDERED: NS 1,000 ML IV ONE (20:41)
[2017-07-20 20:47] LABS: PLATELET COUNT 142 10^3/uL (150-400)
[2017-07-20] MEDS ORDERED: DILTIAZEM HCL/D5W 125 ML IV ONE (21:00)
[2017-07-20] MEDS ORDERED: FUROSEMIDE 20 MG/2 ML VIAL IVP ONE (21:10)
[2017-07-20] MEDS ORDERED: ONDANSETRON 4 MG/2 ML VIAL IVP PRN (21:28)
[2017-07-20] MEDS ORDERED: ONDANSETRON DISINTEGRATING 4 MG TAB PO PRN (21:28)
[2017-07-20] MEDS ORDERED: ACETAMINOPHEN 325 MG TAB PO PRN (21:28)
--- NOTE | 2017-07-20 22:06 | PDGENHP ---
History and Physical - Chief Complaint Acute shortness of breath - History of Present Illness 71-year-old male presenting with acute shortness of breath characterized as visible respiratory distress with associated lightheadedness, symptoms noted by his neighbor and friend who was ambulating with him down the hallway at [facility] on the evening of presentation. She reports that he has had similar symptoms occurring intermittently over the past month, they are exacerbated by ambulating down the hallway, alleviated by stopping and resting. They have not been accompanied by any expression of chest pain or palpitations, and the patient otherwise denies any recent infectious symptoms. On the evening of this presentation, the aforementioned symptoms began while they were ambulating , and were not particularly alleviated with rest. The duration was ongoing and the patient was evaluated in the emergency department, his heart rate was around 260. The patient otherwise did not express any discomfort and he received adenosine x2 doses, which demonstrated appeared to be 2-1 atrial flutter. The patient is otherwise unable to provide any meaningful history other than he feels "cool ". History Information - Allergies/Home Medication List Allergies/Adverse Reactions: No Known Allergies Allergy (Unverified 07/20/17 20:22) Home Medications: Memantine HCl [Namenda 5 mg (*)] 5 mg PO HS 11/19/16 [Last Taken 07/20/17] Atorvastatin Calcium [Lipitor 20 mg (*)] 10 mg PO HS 07/20/17 [Last Taken ] Cholecalciferol Vit D3 [Vitamin D3 (*)] 1,000 units PO DAILY 07/20/17 [Last Taken 07/20/17] I have personally reviewed and updated: family history, medical history, social history, surgical history - Past Medical History coronary artery disease (With remote history of stent placement, 5 vessel CABG in 2014), CVA (X2), dementia (Vascular), hypertension Additional medical history: Transient SVT/atrial flutter in October of 2016. Episode of wandering with THC intoxication and dementia October 2016 - Surgical History Reports: coronary bypass surgery (5 vessel comma 2014) Additional surgical history: hip replacement - Family History Positive for: non-pertinent (Son reportedly healthy) - Social History Smoking Status: Never smoked Alcohol Use: None Drug Use: Marijuana (Regularly) Additional social history: Lives at [facility], has a neighbor/friend who ambulates with him daily Review of Systems Review of Systems: ROS: 10pt was reviewed & negative except for what was stated in HPI & below Respiratory: Reports: shortness of breath Physical Exam Physical Exam: Temp Pulse Resp BP Pulse Ox 36.3 C 147 H 24 H 117/87 H 95 07/20/17 20:51 07/20/17 21:31 07/20/17 21:31 07/20/17 21:31 07/20/17 21:31 O2 (L/minute) 2 Constitutional: no apparent distress, appears nourished, not in pain Eyes: PERRL, anicteric sclera, EOMI Ears, Nose, Mouth, Throat: moist mucous membranes, hearing normal, ears appear normal, no oral mucosal ulcers Cardiovascular: irregularly irregular, tachycardia, edema (Trace bilateral lower extremity), No systolic murmur Respiratory: inspiratory crackles, No reduced air movement, No expiratory wheeze , No bronchial breath sounds, No respiratory distress Gastrointestinal: normoactive bowel sounds, soft, non-tender abdomen, no palpable masses, No distension Genitourinary: no bladder fullness, no bladder tenderness Skin: other (Half cm benign-appearing hyperplastic nevi left back, warm skin, no visible rash) Neurologic: weakness (Motor strength 5/5 bilateral upper and lower extremities) , other (Alert awake oriented x2 to person and place not to time), No facial droop Psychiatric: not anxious, flat affect (Withdrawn but interacts when spoken to), other (Concentration 7/7, naming 3/3, seems very relaxed), No agitated Lab Data & Imaging Review 07/20/17 20:35 07/20/17 20:35 WBC 10.96 10^3/uL (3.80-9.50) H 07/20/17 20:35 RBC 4.90 10^6/uL (4.40-6.38) 07/20/17 20:35 Hgb 16.1 g/dL (13.7-17.5) 07/20/17 20:35 Hct 48.0 % (40.0-51.0) 07/20/17 20:35 MCV 98.0 fL (81.5-99.8) 07/20/17 20:35 MCH 32.9 pg (27.9-34.1) 07/20/17 20:35 MCHC 33.5 g/dL (32.4-36.7) 07/20/17 20:35 RDW 13.5 % (11.5-15.2) 07/20/17 20:35 Plt Count 142 10^3/uL (150-400) L 07/20/17 20:35 MPV 12.7 fL (8.7-11.7) H 07/20/17 20:35 Neut % (Auto) 69.0 % (39.3-74.2) 07/20/17 20:35 Lymph % (Auto) 20.6 % (15.0-45.0) 07/20/17 20:35 [place] % (Auto) 8.5 % (4.5-13.0) 07/20/17 20:35 Eos % (Auto) 0.6 % (0.6-7.6) 07/20/17 20:35 Baso % (Auto) 0.8 % (0.3-1.7) 07/20/17 20: Nucleat RBC Rel Count 0.0 % (0.0-0.2) 07/20/17 20:35 Absolute Neuts (auto) 7.55 10^3/uL (1.70-6.50) H 07/20/17 20:35 Absolute Lymphs (auto) 2.26 10^3/uL (1.00-3.00) 07/20/17 20:35 Absolute Monos (auto) 0.93 10^3/uL (0.30-0.80) H 07/20/17 20:35 Absolute Eos (auto) 0.07 10^3/uL (0.03-0.40) 07/20/17 20:35 Absolute Basos (auto) 0.09 10^3/uL (0.02-0.10) 07/20/17 20:35 Absolute Nucleated RBC 0.00 10^3/uL (0-0.01) 07/20/17 20:35 Immature Gran % 0.5 % (0.0-1.1) 07/20/17 20:35 Immature Gran # 0.06 10^3/uL (0.00-0.10) 07/20/17 20:35 Sodium 145 mEq/L (134-144) H 07/20/17 20:35 Potassium 4.3 mEq/L (3.5-5.2) 07/20/17 20:35 Chloride 109 mEq/L (97-110) 07/20/17 20:35 Carbon Dioxide 21 mEq/l (22-31) L 07/20/17 20:35 Anion Gap 15 mEq/L (8-16) 07/20/17 20:35 BUN 35 mg/dL (7-23) H 07/20/17 20:35 Creatinine 1.4 mg/dL (0.7-1.3) H 07/20/17 20:35 Estimated GFR 50 07/20/17 20:35 Glucose 226 mg/dL (70-100) H 07/20/17 20:35 Calcium 9.1 mg/dL (8.5-10.4) 07/20/17 20:35 Troponin I 0.028 ng/mL (0.000-0.034) 07/20/17 20:35 Visualized and Interpreted Chest x-ray results: Yes Chest X-Ray results: other (Visible interstitial lung markings, cardiomegaly which is new when compared to previous chest x-rays) Visualized and Interpreted EKG results: Yes EKG Interpretation: Positive for: other (Rapid atrial arrhythmia) Assessment & Plan Assessment: 71-year-old male presenting with atrial flutter and rapid ventricular response resulting in mild acute diastolic congestive heart failure exacerbation Plan: 1. Atrial flutter. Acute rapid ventricular response, new problem this provider , further workup indicated. Discussed with Dr. Erick Vinson, he has reported to me that the patient received 2 doses of adenosine in the emergency department , and his rate went from approximately 260 to around 150, is our interpretation the patient was most likely experiencing 1-1 flutter conduction and then this went to 2 to 1 conduction after the adenosine -patient received IV diltiazem bolus, now started on diltiazem drip, will be monitored on the PCU, not currently experiencing hypotension -get TSH level, get echocardiogram, check respiratory viral panel and urinalysis for potential infectious precipitants -check drug screen given his history of marijuana use, to rule out concomitant ingestants which may have played a part in this presentation -reviewed outside records including 11/22/[address] Trevino, he reports that the patient experienced episode of self-limited SVT versus atrial flutter, discharged on aspirin, metoprolol, patient has been initiated on Eliquis in the interim, continue -cardiology has been consulted, they will consider DC cardioversion in the a.m. if the patient does not chemically cardiovert overnight -I suspect the patient will not require a transesophageal echocardiogram as he is currently on Eliquis, although is unclear as to his adherence in the setting of his dementia, will continue the Eliquis this evening 2. Acute diastolic congestive heart failure exacerbation. Evidenced by increased interstitial markings on chest x-ray, cardiomegaly, some lower extremity edema, most likely rate related in the setting of uncontrolled a flutter -I suspect the patient has been experiencing intermittent episodes of asymptomatic atrial flutter given that his friend accompanying him describes events similar to today's presentation occurring over the past month, and patient's previous chest x-rays did not demonstrate significant cardiomegaly -will get echocardiogram -will administer 1 dose of IV Lasix in the emergency department, hold on further Lasix until we see what tomorrow's creatinine level is, urine output 3. Acute kidney injury. Reviewed outside records and labs, his most recent serum creatinine level from 02/01/2017 was 1.0, currently 1.4 with a BUN of 35, most likely secondary to renal hypoperfusion in the setting of poor cardiac output and rapid a flutter/CHF -giving Lasix now, gauge effect -monitor creatinine, I/O, weight 4. Chronic encephalopathy. Patient with known vascular dementia in the setting of previous CVA, MRI from this year demonstrating bilateral cerebellar infarcts , thalamic, basal ganglia infarcts as well -patient's cognition is likely also affected by his chronic THC dependency -patient currently participating in his care, but would recommend involving the patient's MD GOMEZ, his son, regarding any interventional decisions for above 5. Hypertension. Chronic, hold TRAVON-inhibitor given acute kidney injury Diet. Cardiac diet, NPO in a.m. for possible cardioversion Prophylaxis. High risk patient, currently on Eliquis 2.5 Code. Full at present, his son Sonu is MD GOMEZ Disposition. Anticipated discharge uncertain this time, anticipated length stay is greater than 48 hours warranting inpatient admission for reasonable medical necessity including uncontrolled atrial flutter resulting in acute diastolic congestive heart failure exacerbation complicated by acute kidney injury.
[2017-07-20] MEDS: APIXABAN 2.5 MG TAB PO SCH (22:59)
--- NOTE | 2017-07-21 02:37 | PDMN ---
Medical Necessity Medical necessity: C/M review: est. > 2 MN LOS for eval and TX of acute atrial flutter with rapid ventricular response, acute congestive heart failure exacerbation, acute kidney injury requiring IV Adenosine x 2 in ED, IV Diltiazem bolus, in ED, IV Lasix x 1 in ED, planned Cardiology consult, echocardiogram, possible 07/21/2017 cardioversion, ongoing IV Diltiazem infusion , cardiac monitoring, acute inpt PT/OT/ST, comorbid chronic encephalopathy, vascular dementia, hypertension, hx CVA x 2, CAD with stent placement, CABG, transient SVT/atrial flutter 10/2016 per H/P.
[2017-07-21 05:31] LABS: PLATELET COUNT 116 10^3/uL (150-400)
[2017-07-21 05:44] LABS: INR 1.32 (0.83-1.16); PROTIME(PATIENT) 16.4 SEC (12.0-15.0)
[2017-07-21] MEDS ORDERED: LISINOPRIL 5 MG TAB PO SCH (09:00)
[2017-07-21] MEDS: DILTIAZEM HCL/D5W 125 ML IV SCH ×2 (09:13→20:32)
[2017-07-21] MEDS: CHOLECALCIFEROL VIT D3 1,000 UNITS TAB PO SCH (09:15)
[2017-07-21] MEDS: APIXABAN 2.5 MG TAB PO SCH ×2 (09:16→10:51)
[2017-07-21] MEDS: ASPIRIN EC 81 MG TAB PO SCH (09:16)
[2017-07-21] MEDS ORDERED: AMIODARONE HCL 100 ML IV ONE ×2 (09:20→15:24)
--- NOTE | 2017-07-21 09:28 | PDCARCONS ---
Cardiology Consult Reason for Consult: Atrial flutter with rapid ventricular response. Shortness of breath Chief Complaint: Shortness of breath Requesting Physician: Dr. Mare Vinson History of Present Illness: 71-year-old male known to our practice. He presented yesterday to the emergency department with acute onset of shortness of breath and was brought in from his independent living facility. He has a history of advanced vascular dementia, has had 2 prior CVAs in the past He was noted to have a heart rate of 250 beats per minute in the emergency department. He received 2 boluses of adenosine with decrease in heart rate to 150 beats per minute. Initial presentation was thought to be atrial flutter with 1 to 1 conduction to the ventricles. I interviewed the patient on 2 [place] telemetry floor. Patient has significant speech issues and is a very poor historian. he tells me that he feels fine this morning. He denies any chest pain. On telemetry his ventricular rate is 140 beats per minute. History Information - Allergies/Home Medication List Allergies/Adverse Reactions: No Known Allergies Allergy (Unverified 07/20/17 20:22) Home Medications: Memantine HCl [Namenda 5 mg (*)] 5 mg PO HS 11/19/16 [Last Taken 07/20/17] Atorvastatin Calcium [Lipitor 20 mg (*)] 10 mg PO HS 07/20/17 [Last Taken ] Cholecalciferol Vit D3 [Vitamin D3 (*)] 1,000 units PO DAILY 07/20/17 [Last Taken 07/20/17] I have personally reviewed and updated: family history, medical history, social history, surgical history Past Medical History: - Past Medical History coronary artery disease, CVA, hypertension - Surgical History Reports: coronary bypass surgery - Social History Smoking Status: Never smoked Alcohol Use: None Drug Use: Marijuana (Regularly) Physical Exam Physical Exam: Temp Pulse Resp BP Pulse Ox 36.5 C 144 H 18 122/98 H 94 07/21/17 07:44 07/21/17 09:13 07/21/17 07:44 07/21/17 07:44 07/21/17 07:44 O2 (L/minute) 2 Constitutional: no apparent distress, appears nourished Eyes: PERRL, EOMI Ears, Nose, Mouth, Throat: moist mucous membranes Cardiovascular: regular rate and rhythym, systolic murmur Respiratory: no respiratory distress, clear to auscultation Gastrointestinal: normoactive bowel sounds Skin: warm Psychiatric: poor insight, poor memory Lab and Imaging 07/21/17 05:03 07/21/17 05:03 WBC 9.34 10^3/uL (3.80-9.50) 07/21/17 05:03 RBC 4.48 10^6/uL (4.40-6.38) 07/21/17 05:03 Hgb 14.6 g/dL (13.7-17.5) 07/21/17 05:03 Hct 42.7 % (40.0-51.0) 07/21/17 05:03 MCV 95.3 fL (81.5-99.8) 07/21/17 05:03 MCH 32.6 pg (27.9-34.1) 07/21/17 05:03 MCHC 34.2 g/dL (32.4-36.7) 07/21/17 05:03 RDW 13.4 % (11.5-15.2) 07/21/17 05:03 Plt Count 116 10^3/uL (150-400) L 07/21/17 05:03 MPV 12.8 fL (8.7-11.7) H 07/21/17 05:03 Neut % (Auto) 65.7 % (39.3-74.2) 07/21/17 05:03 Lymph % (Auto) 22.3 % (15.0-45.0) 07/21/17 05:03 [place] % (Auto) 10.5 % (4.5-13.0) 07/21/17 05:03 Eos % (Auto) 0.6 % (0.6-7.6) 07/21/17 05:03 Baso % (Auto) 0.5 % (0.3-1.7) 07/21/17 05:03 Nucleat RBC Rel Count 0.0 % (0.0-0.2) 07/21/17 05:03 Absolute Neuts (auto) 6.13 10^3/uL (1.70-6.50) 07/21/17 05:03 Absolute Lymphs (auto) 2.08 10^3/uL (1.00-3.00) 07/21/17 05:03 Absolute Monos (auto) 0.98 10^3/uL (0.30-0.80) H 07/21/17 05:03 Absolute Eos (auto) 0.06 10^3/uL (0.03-0.40) 07/21/17 05:03 Absolute Basos (auto) 0.05 10^3/uL (0.02-0.10) 07/21/17 05:03 Absolute Nucleated RBC 0.00 10^3/uL (0-0.01) 07/21/17 05:03 Immature Gran % 0.4 % (0.0-1.1) 07/21/17 05:03 Immature Gran # 0.04 10^3/uL (0.00-0.10) 07/21/17 05:03 PT 16.4 SEC (12.0-15.0) H 07/21/17 05:03 INR 1.32 (0.83-1.16) H 07/21/17 05:03 APTT 34.7 SEC (23.0-38.0) 07/21/17 05:03 Sodium 144 mEq/L (134-144) 07/21/17 05:03 Potassium 3.8 mEq/L (3.5-5.2) 07/21/17 05:03 Chloride 110 mEq/L (97-110) 07/21/17 05:03 Carbon Dioxide 21 mEq/l (22-31) L 07/21/17 05:03 Anion Gap 13 mEq/L (8-16) 07/21/17 05:03 BUN 33 mg/dL (7-23) H 07/21/17 05:03 Creatinine 1.3 mg/dL (0.7-1.3) 07/21/17 05:03 Estimated GFR 54 07/21/17 05:03 Glucose 94 mg/dL (70-100) 07/21/17 05:03 Calcium 8.8 mg/dL (8.5-10.4) 07/21/17 05:03 Magnesium 1.9 mg/dL (1.6-2.3) 07/21/17 05:03 Total Bilirubin 0.4 mg/dL (0.1-1.4) 07/21/17 05:03 AST 68 IU/L (17-59) H 07/21/17 05:03 ALT 101 IU/L (21-72) H 07/21/17 05:03 Alkaline Phosphatase 69 IU/L (38-126) 07/21/17 05:03 Troponin I 0.132 ng/mL (0.000-0.034) H 07/21/17 05:03 Total Protein 5.8 g/dL (6.3-8.2) L 07/21/17 05:03 Albumin 3.5 g/dL (3.5-5.0) 07/21/17 05:03 TSH 3.130 uIU/mL (0.465-4.680) 07/20/17 21:37 Urine Color YELLOW 07/21/17 04:45 Urine Appearance CLEAR 07/21/17 04:45 Urine pH 5.0 (5.0-7.5) 07/21/17 04:45 Ur Specific [place] 1.012 (1.002-1.030) 07/21/17 04:45 Urine Protein NEGATIVE (NEGATIVE) 07/21/17 04:45 Urine Ketones NEGATIVE (NEGATIVE) 07/21/17 04:45 Urine Blood NEGATIVE (NEGATIVE) 07/21/17 04:45 Urine Nitrate NEGATIVE (NEGATIVE) 07/21/17 04:45 Urine Bilirubin NEGATIVE (NEGATIVE) 07/21/17 04:45 Urine Urobilinogen NEGATIVE EU (0.2-1.0) 07/21/17 04:45 Ur Leukocyte Esterase NEGATIVE (NEGATIVE) 07/21/17 04:45 Urine Glucose NEGATIVE (NEGATIVE) 07/21/17 04:45 Urine Opiates Screen NEGATIVE ng/mL (NEGATIVE) 07/21/17 04:45 Urine Barbiturates NEGATIVE ng/mL (NEGATIVE) 07/21/17 04:45 Ur Phencyclidine Scrn NEGATIVE ng/mL (NEGATIVE) 07/21/17 04:45 Ur Amphetamines Screen NEGATIVE ng/mL (NEGATIVE) 07/21/17 04:45 U Benzodiazepines Scrn NEGATIVE ng/mL (NEGATIVE) 07/21/17 04:45 Urine Cocaine Screen NEGATIVE ng/mL (NEGATIVE) 07/21/17 04:45 U Marijuana (THC) Screen > 800 ng/mL (NEGATIVE) 07/21/17 04:45 Visualized and Interpreted Chest x-ray results: Yes Visualized and Interpreted EKG results: Yes EKG additional interpertation: Atrial flutter with 2-1 conduction to the ventricles A/P Assessment: 1. Coronary artery disease status post CABG 2. History of stroke and dementia 3. Hypertension 4. Mitral regurgitation 5. Atrial flutter with rapid conduction to the ventricles Plan: 1. Atrial flutter-I have not reviewed the original rhythm strips that showed ventricular rate of 250 beats per minute. However subsequent EKG shows atrial flutter with 2-1 conduction to the ventricles. He is currently on diltiazem 7.5 milligrams/hour. We will increase diltiazem to 10 milligrams/hour, I have also given him a 10 mg IV bolus of diltiazem. Originally we had planned TE guided cardioversion, however given his advanced dementia and confusion, I would like to medically manage him at this time and consider cardioversion only if medical management is not helpful. We will start him on amiodarone bolus and drip over the next 24 hours. We will also increase his Eliquis to 5 mg twice daily, he does not meet criteria for low-dose Eliquis at this time. I discussed this with his son by phone. Also discussed this with his nurse. Ablation for atrial flutter can be considered if it becomes a recurrent issue, am reluctant to do it as first-line therapy given his advanced dementia. 2. Mitral regurgitation, moderate to severe on echocardiogram today. I do not believe he is a candidate for surgery given his multiple comorbid conditions including his dementia.
[2017-07-21] MEDS ORDERED: DILTIAZEM 25 MG/5 ML VIAL IVP ONE (09:30)
--- NOTE | 2017-07-21 09:46 | ECHO ---
[email or web address] [address] [address] Main: [phone] Fax: Transthoracic Echocardiogram Name: LEIGH ANN ASTORGA MR#: [id number] Study Date: 07/21/2017 Study Time: 07:54 AM Date of : 1945 Age: 71 year(s) Height: 185.4 cm (73 in.) Weight: 90.72 kg (200 lb.) BSA: 2.15 m2 Gender: Male Examination: Echo Indication: Eval cardiomyopathy/new atrial flutter, history CABG Image Quality: Contrast: Requested by: Nirav Peña BP: 122 mmHg/98 mmHg Heart Rate: Rhythm: Indication: Eval cardiomyopathy/new atrial flutter, history CABG Procedure Staff Manager Wireless: Yolanda Horan Reading Physician: Gwyn Cervantes Requesting Provider: Conclusions: The ejection fraction is estimated to be 20-25 %. The left atrium is moderately dilated. The right atrium is mildly dilated. Moderate to severe mitral regurgitation. Measurements: Chambers Valvular Assessment AV/MV Valvular Assessment TV/PV Normal Normal Normal Name Value Range Name Value Range Name Value Range Ao Celi (MM): 3.5 cm (2.2 cm-3.7 AV meanP mmHg ( - ) TR Vmax: 2.10 mm/s ( - ) cm) ANKUR (VTI): 3.0 cm ( - ) TR PGmax: 18 mmHg ( - ) IVSd (2D): 1.2 cm (0.6 cm-1.1 MV E Vmax: 1.16 m/s ( - ) syst. PAP: 23 mmHg ( - ) cm) MV meanP mmHg ( - ) LVDd (2D): 5.6 cm (4.2 cm-5.9 MVA (Vmax): 1.7 m/s ( - ) cm) LVDs (2D): 4.5 cm (2.1 cm-4 cm) LVPWd (2D): 1.1 cm (0.6 cm-1 cm) LVOTd 2.3 cm 2.3 cm mm LVEF (MOD4): 19 % (>=55 %) EF Range: 20-25 % Continued Measurements: Chambers Valvular Assessment AV/MV Valvular Assessment TV/PV Name Value Name Value Name Value LADs: 5.1 cm MV VTI: 20.20 cm CVP (est.): 5 mmHg LADs Lon.3 cm MR Vena Contracta: 0.3 cm Patient: LEIGH ANN ASTORGA Study Date: 07/21/2017 Page 1 of 2 07:54 AM LA Area: 28.8 cm2 MR ERO: 0.180 cm2 MR PISA radius: 6 mm MR Reg. Volume: 21 ml Findings: Left Ventricle: Normal size left ventricle. Moderately to severely reduced systolic function. The ejection fraction is estimated to be 20-25 %. Right Ventricle: Normal size right ventricle. Left Atrium: The left atrium is moderately dilated. Right Atrium: The right atrium is mildly dilated. Mitral Valve: Moderate to severe mitral regurgitation. Calcified posterior mitral leaflet. Leaflets appear to not coapt completely.. Aortic Valve: The aortic valve is tri-leaflet. There is mild thickening of the aortic cusps. Tricuspid Valve: The tricuspid valve appears normal. Mild tricuspid regurgitation is present. The pulmonary artery pressure is normal. Pulmonic Valve: The pulmonic valve is normal in appearance. Trivial pulmonic valve regurgitation. Pericardium: No pericardial effusion. (No Signature Object) Patient: LEIGH ANN ASTORGA Study Date: 07/21/2017 Page 2 of 2 07:54 AM [id number]
[2017-07-21] MEDS ORDERED: AMIODARONE HCL 200 ML IV ONE (10:08)
[2017-07-21] MEDS: APIXABAN 5 MG TAB PO SCH ×2 (10:47→21:57)
--- NOTE | 2017-07-21 14:14 | HOSPPROG ---
Hospitalist Progress Note Assessment/Plan: A flutter - Presented with presumed 1:1 conduction and HR 260. HR improved to 130's-140's after 2 doses of adenosine. Now on Amio drip and Dilt drip at 12/ hr with persistently poor rate control, 130's. Discussed with cards. Prefer medical management, but will proceed with cardioversion in AM if unable to manage medically -Repeat IV Amio bolus 150 mg now. 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 S/P IV Lasix. Does not appear to be decompensated from HF standpoint at this time -PRN Lasix Mod-severe MR - poor surgical candidate given advanced dementia and comorbidities Elevated trop - likely strain in setting of A flutter and HF, peaked at 0.1e, now trending down. Cards aware. JAVIER - Cr 1.4 --> 1.3 after IV Lasix -cont to monitor Hypertension - Adequate control on Diltiazem Advanced dementia Full code - discussed poor prognosis with son, Snou, who is MDPOA. He wishes for his dad to remain full code. Wants to d/w brother and will readdress tomorrow. Dispo - change to inpt for ongoing cardiac evaluation Subjective: Pt feels fine. He is demented. Denies CP , SOB, or palpitations. Objective: Vital Signs Temp Pulse Resp BP Pulse Ox 36.8 C 93 20 116/67 91 L 07/21/17 12:09 07/21/17 12:09 07/21/17 12:09 07/21/17 12:09 07/21/17 12:09 Microbiology 07/20/17 23:00 Respiratory Panel (PCR) - Final Nasal, Sinus - Swab No Organism Detected Laboratory Results 07/21/17 05:03 07/21/17 05:03 07/20/17 07/21/17 07/22/17 05:59 05:59 05:59 Output Total 425 Balance -425 PT 16.4 SEC (12.0-15.0) H 07/21/17 05:03 INR 1.32 (0.83-1.16) H 07/21/17 05:03 - Physical Exam Constitutional: no apparent distress Eyes: PERRL Ears, Nose, Mouth, Throat: moist mucous membranes Cardiovascular: irregularly irregular, tachycardia Respiratory: no respiratory distress, clear to auscultation Gastrointestinal: normoactive bowel sounds, soft, non-tender abdomen Skin: warm Musculoskeletal: full muscle strength Psychiatric: poor insight, poor memory ICD10 Worksheet Patient Problems: Problems Problem Status Onset Acute exacerbation of congestive heart failure Acute Atrial flutter Acute Blister of foot without infection Acute Chest pain Acute Coronary artery disease Acute Dementia Acute Encephalopathy acute Acute Postoperative atrial fibrillation Acute S/P CABG x 5 Acute Memory loss due to medical condition Chronic
--- NOTE | 2017-07-21 14:54 | ASMTCMCOM ---
CM Note CM Note Notes: Pt admitted with atrial flutter. Cardiology evaluation in process. Hx CAD, advanced vascular dementia 2/2 CVA. Lives at [facility]. Of note, there was an episode of wandering at related to THC intoxication in 10/2016. Son Sonu Boateng is [facility] [phone]. Pt is a poor historian. He has been to [facility] in the past. CM will follow for any d/c needs. Date Signed: 07/21/2017 02:54 PM Electronically Signed By:TOY Weller
[2017-07-21] MEDS ORDERED: AMIODARONE HCL 540 MG in D5W 300 ML IV ONE (16:45)
[2017-07-21] MEDS: IPRATROPIUM BROMIDE 0.5 MG/2.5 ML DEYVIAL IH SCH (21:41)
[2017-07-21] MEDS: LEVALBUTEROL 0.63 MG/3 ML DEYVIAL IH SCH (21:41)
[2017-07-21] MEDS: MEMANTINE HCL 5 MG TAB PO SCH (21:57)
[2017-07-21] MEDS: DONEPEZIL HCL 5 MG TAB PO SCH (21:57)
[2017-07-21] MEDS: ATORVASTATIN CALCIUM 10 MG TAB PO SCH (21:57)
[2017-07-21] MEDS: predniSONE 20 MG TAB PO SCH (21:57)
[2017-07-21] MEDS: BENZONATATE 100 MG CAP PO PRN (22:56)
[2017-07-21] MEDS: GUAIFENESIN/DM 10 ML UDCUP PO PRN (22:56)
[2017-07-22] MEDS: IPRATROPIUM BROMIDE 0.5 MG/2.5 ML DEYVIAL IH SCH ×2 (01:10→09:19)
[2017-07-22] MEDS: LEVALBUTEROL 0.63 MG/3 ML DEYVIAL IH SCH ×2 (01:10→09:19)
[2017-07-22] MEDS: diphenhydrAMINE 25 MG CAP PO PRN ×3 (01:30→21:38)
[2017-07-22] MEDS: DILTIAZEM HCL/D5W 125 ML IV SCH (06:35)
[2017-07-22] MEDS: CHOLECALCIFEROL VIT D3 1,000 UNITS TAB PO SCH (09:09)
[2017-07-22] MEDS: predniSONE 20 MG TAB PO SCH (09:09)
[2017-07-22] MEDS: ASPIRIN EC 81 MG TAB PO SCH (09:10)
[2017-07-22] MEDS: APIXABAN 5 MG TAB PO SCH ×2 (09:10→21:38)
[2017-07-22] MEDS: BENZONATATE 100 MG CAP PO PRN ×2 (09:10→21:38)
--- NOTE | 2017-07-22 10:57 | SOAPPROG ---
YOLANDA Progress Note Assessment/Plan: Assessment: 1. Coronary artery disease status post CABG 2. History of stroke and dementia 3. Hypertension 4. Mitral regurgitation 5. Atrial flutter with rapid conduction to the ventricles Discussion: This is my first meeting with this patient and his son. The patient's son is his primary caregiver. He has been caring for his father for over 8 years in the setting of his vascular dementia. This of 6 months ago was able to occasionally plays golf. In discussing quality of life with the patient today his goal is to be able to try and play golf again. He understands his limitations as it relates to his dementia and history of stroke. Over the last several weeks to months the issues have been related to asymptomatic atrial dysrhythmia control of rate in the setting of worsening cardiomyopathy. Rate control has been difficult standard therapy. He has been completely revascularized. He has been assessed for mitral valve repair/replacement which is felt to be too high risk. I feel that portion of his myopathy is rate related. Recommendations: Aggressive rate control either with medications including beta-osvaldo, amiodarone, digoxin versus AV node ablation implantation of a chamber biventricular pacemaker. Discussed symptomatic care only. I will review his echoes, angiograms, case with Dr. Cervantes and the cardiovascular team. His son is amenable to aggressive conservative therapy. If our goal is persistent quality of life I think this is reasonable. 07/22/17 11:28 Subjective: Feeling well, no palpitations, shortness of breath. No PND orthopnea. He has not been walking. I discussed today with the patient and the son kind of what goals are for quality of life. He is enjoying relatively good quality of life. He has activities like to participate in including golfing. His son feels these activities are reasonable as he was outdoors 6 months ago. He is well aware of limitations related to his underlying valve dementia and need for chronic care. Cardiac review of systems is negative for chest pain, shortness of breath, PND , orthopnea, palpitations, syncope, near syncope, edema. Objective: Medications Generic Name Dose Route Start Last Admin Trade Name Freq PRN Reason Stop Dose Admin Atorvastatin Calcium 10 mg 07/21/17 21:00 07/21/17 21:57 Lipitor PO 01/17/18 20:59 10 mg HS JOSE Prednisone 40 mg 07/21/17 21:00 07/22/17 09:09 Prednisone PO 01/17/18 20:59 40 mg DAILY JOSE Donepezil HCl 10 mg 07/21/17 21:00 07/21/17 21:57 Aricept PO 01/17/18 20:59 10 mg HS JOSE Memantine 5 mg 07/21/17 21:00 07/21/17 21:57 Namenda PO 01/17/18 20:59 5 mg HS JOSE Apixaban 5 mg 07/21/17 09:30 07/22/17 09:10 Eliquis PO 01/17/18 09:29 5 mg BID JOSE Aspirin Buffered 81 mg 07/21/17 09:00 07/22/17 09:10 Aspirin Ec PO 01/17/18 08:59 81 mg DAILY JOSE Diltiazem/Dextrose 125 mls @ 0 mls/hr 07/20/17 22:00 07/22/17 06:35 Diltiazem 125mg/125ml (Premix) IV 01/16/18 21:59 125 mls CONT JOSE Protocol Per Protocol Vital Signs Temp Pulse Resp BP Pulse Ox 36.7 C 125 H 18 114/92 H 96 07/22/17 07:21 07/22/17 07:21 07/22/17 07:21 07/22/17 07:21 07/22/17 07:21 Microbiology 07/20/17 23:00 Respiratory Panel (PCR) - Final Nasal, Sinus - Swab No Organism Detected Laboratory Results 07/22/17 04:25 07/22/17 04:25 07/21/17 07/22/17 07/23/17 05:59 05:59 05:59 Intake Total 1857 Output Total 425 1200 Balance -425 657 PT 16.4 SEC (12.0-15.0) H 07/21/17 05:03 INR 1.32 (0.83-1.16) H 07/21/17 05:03 Laboratory Tests 07/20/17 07/21/17 07/21/17 21:37 05:03 16:58 AST 68 H ALT 101 H Troponin I 0.132 H 0.075 H TSH 3.130 07/22/17 04:25 AST 38 ALT 83 H Troponin I TSH Physical Exam - Physical Exam General Appearance: alert, no apparent distress EENT: No scleral icterus (R) Neck: full range of motion, other (Flutter waves) Respiratory: chest non-tender, lungs clear, normal breath sounds Cardiac/Chest: tachycardia, systolic murmur, irregularly irregular Abdomen: normal bowel sounds, non-tender, soft Back: Normal inspection Skin: normal color Extremities: non-tender, No pedal edema, No calf tenderness Neuro/Psych: alert, aphasia, No facial droop ICD10 Worksheet Patient Problems: Problems Problem Status Onset Chest pain Acute Coronary artery disease Acute S/P CABG x 5 Acute Postoperative atrial fibrillation Acute Memory loss due to medical condition Chronic Encephalopathy acute Acute Dementia Acute Blister of foot without infection Acute Atrial flutter Acute Acute exacerbation of congestive heart failure Acute Past Medical History - Personal History Current Tetanus/Diphtheria Vaccine: Yes Current Tetanus Diphtheria and Acellular Pertussis (TDAP): Yes - Medical/Surgical History Hx Asthma: No Hx Chronic Respiratory Disease: No Hx Cardiac Disease: Yes Hx Diabetes: No Hx Renal Disease: No Hx Alcoholism: No Hx Cirrhosis: No Hx HIV/AIDS: No Hx Splenectomy or Spleen Trauma: No Other PMH: HTN, DEMENTIA, CVA'S X 2 2012. RIGHT HIP REPLACEMENT. Bypass X4 arthritis knees and ankles - Social History Smoking Status: Never smoked Drug Use: Marijuana Review of Systems - Review of Systems Constitutional: denies: chills, fever EENTM: no symptoms reported Respiratory: no symptoms reported Cardiac: no symptoms reported Gastrointestinal/Abdominal: no symptoms reported Genitourinary: no symptoms Musculoskelatal: no symptoms Skin: no symptoms Neurological: no symptoms Hematologic/Lymphatic: no symptoms reported Immunologic/allergic: no symptoms reported
[2017-07-22] MEDS: METOPROLOL TARTRATE 25 MG TAB PO SCH ×2 (11:56→21:39)
--- NOTE | 2017-07-22 13:34 | HOSPPROG ---
Hospitalist Progress Note Assessment/Plan: A flutter - Presented with presumed 1:1 conduction and HR 260. HR improved to 130's-140's after 2 doses of adenosine. Amio and dilt drip yesterday, both d/c' d today by cards. Prefer medical management over interventions. Deferred cardioversion, considering ablation. 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 S/P IV Lasix. Does not appear to be decompensated from HF standpoint at this time -PRN Lasix Mod-severe MR - poor surgical candidate given advanced dementia and comorbidities Elevated trop - likely strain in setting of A flutter and HF, peaked at 0.1e, now trending down. Cards aware. JAVIER - Cr 1.4 --> 1.3 after IV Lasix -cont to monitor Hypertension - Adequate control on Diltiazem Advanced dementia H/O CVA Full code - discussed poor prognosis with son, Sonu, who is MDPOA. He wishes for his dad to remain full code. CM involved regarding placement options. Pt currently at [facility]. Dispo - cont inpt Subjective: Pt is pleasantly demented. He denies CP, SOb, orthopnea or PND. NO fevers. He is coughing a bit. Objective: Vital Signs Temp Pulse Resp BP Pulse Ox 36.5 C 124 H 16 112/95 H 93 07/22/17 12:00 07/22/17 12:00 07/22/17 12:00 07/22/17 12:00 07/22/17 12:00 Microbiology 07/20/17 23:00 Respiratory Panel (PCR) - Final Nasal, Sinus - Swab No Organism Detected Laboratory Results 07/22/17 04:25 07/22/17 04:25 07/21/17 07/22/17 07/23/17 05:59 05:59 05:59 Intake Total 1857 240 Output Total 425 1200 Balance -425 657 240 PT 16.4 SEC (12.0-15.0) H 07/21/17 05:03 INR 1.32 (0.83-1.16) H 07/21/17 05:03 - Physical Exam Constitutional: no apparent distress Eyes: PERRL Ears, Nose, Mouth, Throat: moist mucous membranes Cardiovascular: irregularly irregular Respiratory: no respiratory distress, clear to auscultation Gastrointestinal: normoactive bowel sounds, soft, non-tender abdomen Skin: warm Musculoskeletal: full muscle strength Neurologic: AAOx3 Psychiatric: interacting appropriately ICD10 Worksheet Patient Problems: Problems Problem Status Onset Acute exacerbation of congestive heart failure Acute Atrial flutter Acute Blister of foot without infection Acute Chest pain Acute Coronary artery disease Acute Dementia Acute Encephalopathy acute Acute Postoperative atrial fibrillation Acute S/P CABG x 5 Acute Memory loss due to medical condition Chronic
[2017-07-22] MEDS: AMIODARONE HCL 200 MG TAB PO SCH ×2 (14:35→21:38)
[2017-07-22] MEDS: IPRATROPIUM BROMIDE 0.5 MG/2.5 ML DEYVIAL IH PRN (14:43)
[2017-07-22] MEDS: LEVALBUTEROL 0.63 MG/3 ML DEYVIAL IH PRN (14:43)
--- NOTE | 2017-07-22 15:33 | ASMTCMCOM ---
CM Note CM Note Notes: 07/22/2017 Case Management Note Received call from Tara Lorenzo social sciences professor with the [facility] [phone]. Met w/pt and son Sonu. Discussed concerns re: pt safety living at home alone. Sonu has plans to renovate his basement for pt to move into over the next 6 months. Other son is living in [place] at this time. Sonu has explored Assisted living facilties but has found that pts daily marijuana use has prevented acceptance at all Assisted Living facilities. Sara Guerrero [phone] checks on pt regularly, however pt is without regular monitoring or supervision. Sonu reports that pt is able to manage his meds twice daily without difficulty. Sara Guerrero assists with some meals. Sonu acknowledged need for increased support for pt but is trying to balance increasing needs with pt desire to remain independent and to coontinue use of marijuana. Referred Sonu for Spiritual Care Consult. Please see notes. Spoke with Tara at [facility]. Pt can obtain outpt therapy at [facility] on and [place]. [facility] also has Home Care but pt has refused in the past. Pt unwilling to attend day memory program today but did agree to limited PT visits if required. Pt and Sonu refused hiring unskilled caregivers for supervision. Tara felt pt was near baseline and able to function as previous to admission. Case Management requested on site visit for [facility] to evaluate. Tara was to share hospital notes with [facility]. Case Management d/c poc: increase services available through [facility] if pt agreeable. Continue to provide support for Sonu in the decision making process during hospitalization. Case Management to follow. Date Signed: 07/22/2017 03:32 PM Electronically Signed By:Anita Lombardi RN
[2017-07-22] MEDS: ATORVASTATIN CALCIUM 10 MG TAB PO SCH (21:38)
[2017-07-22] MEDS: MEMANTINE HCL 5 MG TAB PO SCH (21:38)
[2017-07-22] MEDS: DONEPEZIL HCL 5 MG TAB PO SCH (21:41)
[2017-07-22] MEDS: GUAIFENESIN/DM 10 ML UDCUP PO PRN (21:41)
[2017-07-23] MEDS: BENZONATATE 100 MG CAP PO PRN ×2 (09:15→16:20)
[2017-07-23] MEDS: ASPIRIN EC 81 MG TAB PO SCH (09:15)
[2017-07-23] MEDS: AMIODARONE HCL 200 MG TAB PO SCH ×3 (09:15→21:35)
[2017-07-23] MEDS: CHOLECALCIFEROL VIT D3 1,000 UNITS TAB PO SCH (09:16)
[2017-07-23] MEDS: diphenhydrAMINE 25 MG CAP PO PRN ×2 (09:16→16:20)
[2017-07-23] MEDS: GUAIFENESIN/DM 10 ML UDCUP PO PRN ×2 (09:16→16:20)
[2017-07-23] MEDS: METOPROLOL TARTRATE 25 MG TAB PO SCH ×2 (09:16→21:35)
[2017-07-23] MEDS: APIXABAN 5 MG TAB PO SCH ×2 (09:16→21:35)
[2017-07-23] MEDS: IPRATROPIUM BROMIDE 0.5 MG/2.5 ML DEYVIAL IH PRN (09:19)
[2017-07-23] MEDS: LEVALBUTEROL 0.63 MG/3 ML DEYVIAL IH PRN (09:19)
--- NOTE | 2017-07-23 10:54 | SOAPPROG ---
YOLANDA Progress Note Assessment/Plan: Assessment: 1. Coronary artery disease status post CABG 2. History of stroke and dementia 3. Hypertension 4. Mitral regurgitation 5. Atrial flutter with rapid conduction to the ventricles 07/23/17 10:50 Discussion: Rate-related cardiomyopathy associated with atrial flutter. Rate at 120 on amiodarone and metoprolol. Recommendations: Discontinue Eliquis today. Plan for pacing, cardioversion in 48 hours. Considerations for ablation. Discussed with patient, family, patient's primary care physician Dr. Ester Zamora. Initiate TRAVON-inhibitor for reduced LV systolic function. 07/22/17 11:28 Discussion: This is my first meeting with this patient and his son. The patient's son is his primary caregiver. He has been caring for his father for over 8 years in the setting of his vascular dementia. This of 6 months ago was able to occasionally plays golf. In discussing quality of life with the patient today his goal is to be able to try and play golf again. He understands his limitations as it relates to his dementia and history of stroke. Over the last several weeks to months the issues have been related to asymptomatic atrial dysrhythmia control of rate in the setting of worsening cardiomyopathy. Rate control has been difficult standard therapy. He has been completely revascularized. He has been assessed for mitral valve repair/replacement which is felt to be too high risk. I feel that portion of his myopathy is rate related. Recommendations: Aggressive rate control either with medications including beta-osvaldo, amiodarone, digoxin versus AV node ablation implantation of a chamber biventricular pacemaker. Discussed symptomatic care only. I will review his echoes, angiograms, case with Dr. Cervantes and the cardiovascular team. His son is amenable to aggressive conservative therapy. If our goal is persistent quality of life I think this is reasonable. 07/23/17 10:53 Subjective: Feeling well. No PND orthopnea. No syncope, near syncope. No chest pain. Long discussion with Dr. Zamora yesterday. Patient's clinical course complicated by recurrent syncope with metoprolol related to prolonged pauses of up to 8 seconds. This will preclude the long-term use of rate control with AV phoenix agents and/or amiodarone without a device. Objective: Medications Generic Name Dose Route Start Last Admin Trade Name Freq PRN Reason Stop Dose Admin Amiodarone HCl 200 mg 07/22/17 16:00 07/23/17 09:15 Amiodarone Hcl PO 01/18/18 15:59 200 mg TID [facility] Aspirin Buffered 81 mg 07/21/17 09:00 07/23/17 09:15 Aspirin Ec PO 01/17/18 08:59 81 mg DAILY [facility] Atorvastatin Calcium 10 mg 07/21/17 21:00 07/22/17 21:38 Lipitor PO 01/17/18 20:59 10 mg HS [facility] Metoprolol Tartrate 25 mg 07/22/17 11:30 07/23/17 09:16 Lopressor PO 01/18/18 11:29 25 mg BID [facility] Vital Signs Temp Pulse Resp BP Pulse Ox 36.2 C 121 H 16 124/95 H 93 07/23/17 08:00 07/23/17 08:00 07/23/17 08:00 07/23/17 08:00 07/23/17 08:00 Laboratory Results 07/22/17 04:25 07/22/17 04:25 07/22/17 07/23/17 07/24/17 05:59 05:59 05:59 Intake Total 1857 1816.8 Output Total 1200 Balance 657 1816.8 PT 16.4 SEC (12.0-15.0) H 07/21/17 05:03 INR 1.32 (0.83-1.16) H 07/21/17 05:03 Physical Exam - Physical Exam General Appearance: alert, no apparent distress EENT: PERRL/EOMI Neck: non-tender, full range of motion Respiratory: chest non-tender, lungs clear Cardiac/Chest: tachycardia, irregularly irregular Abdomen: normal bowel sounds, non-tender, soft, No organomegaly Skin: normal color, warm/dry Lymphatic: no adenopathy Extremities: normal range of motion, non-tender, No pedal edema, No calf tenderness Neuro/Psych: alert ICD10 Worksheet Patient Problems: Problems Problem Status Onset Chest pain Acute Coronary artery disease Acute S/P CABG x 5 Acute Postoperative atrial fibrillation Acute Memory loss due to medical condition Chronic Encephalopathy acute Acute Dementia Acute Blister of foot without infection Acute Atrial flutter Acute Acute exacerbation of congestive heart failure Acute Review of Systems - Review of Systems Constitutional: denies: chills, fever EENTM: no symptoms reported Respiratory: no symptoms reported Cardiac: no symptoms reported Gastrointestinal/Abdominal: no symptoms reported Genitourinary: no symptoms Musculoskelatal: no symptoms Skin: no symptoms Neurological: no symptoms Hematologic/Lymphatic: no symptoms reported Immunologic/allergic: no symptoms reported
[2017-07-23] MEDS ORDERED: LISINOPRIL 2.5 MG TAB PO SCH (11:00)
--- NOTE | 2017-07-23 11:30 | ASMTCMCOM ---
CM Note CM Note Notes: 07/23/2017 Case Management Note Phone call from Tara Lorenzo from the [facility] program [phone] requesting updates. Faxed recent notes. Case Management poc: largely dictated by [facility] program. Will continue to fax updates as requested by Tara Lorenzo. Case Management to follow. Date Signed: 07/23/2017 11:30 AM Electronically Signed By:Anita Lombardi RN
--- NOTE | 2017-07-23 13:57 | HOSPPROG ---
Hospitalist Progress Note Assessment/Plan: #Atrial flutter -oral Amiodarone and BB. Plan for JENNY and cardioversion in morning. Eliquis held for procedure #Expiratory stridor: unclear hx if new, but started on ACEI today. Will hold. Check CT chest to eval for mass, stenosis #Acutely decompensated cardiomyopathy; due to tachy-arrhythmia. BB, started on ACEI today, but stridor today, so will hold #Moderate-severe MR: #Vascular dementia: cont home meds #h/o CVA: statin, ASA #JAVIER: Cr 1.4-->1.3 #Diet: regular #DVT ppx: Eliquis #Disp: warrants inpatient admission for cardioversion, JENNY Subjective: He became very restless, agitated after swallow eval per RN. Denies SOB Objective: Vital Signs Temp Pulse Resp BP Pulse Ox 36.5 C 116 H 15 106/82 H 96 07/23/17 12:00 07/23/17 12:00 07/23/17 12:00 07/23/17 12:00 07/23/17 12:00 Laboratory Results 07/22/17 04:25 07/22/17 04:25 07/22/17 07/23/17 07/24/17 05:59 05:59 05:59 Intake Total 1857 1816.8 Output Total 1200 Balance 657 1816.8 PT 16.4 SEC (12.0-15.0) H 07/21/17 05:03 INR 1.32 (0.83-1.16) H 07/21/17 05:03 - Physical Exam Constitutional: no apparent distress Eyes: PERRL Ears, Nose, Mouth, Throat: moist mucous membranes, other (no tongue swelling, airway patent) Cardiovascular: regular rate and rhythym, tachycardia Respiratory: no respiratory distress, other (auditory expiratory wheezing over anterior chest) Gastrointestinal: normoactive bowel sounds, soft, non-tender abdomen Genitourinary: no bladder fullness Skin: warm Musculoskeletal: full muscle strength Neurologic: AAOx3, CN II-XII Intact Psychiatric: encephalopathic, depressed ICD10 Worksheet Patient Problems: Problems Problem Status Onset Acute exacerbation of congestive heart failure Acute Atrial flutter Acute Blister of foot without infection Acute Chest pain Acute Coronary artery disease Acute Dementia Acute Encephalopathy acute Acute Postoperative atrial fibrillation Acute S/P CABG x 5 Acute Memory loss due to medical condition Chronic
--- NOTE | 2017-07-23 14:26 | PDCARPN ---
Cardiology Progress Note Assessment/Plan: Assessment: 1. Atrial flutter 2. Rate related cardiomyopathy Plan: Several conversations with patient and son today and also with Dr. Javed. Plan is 1. JENNY + CV tomorrow AM 2. Continue amiodarone and BB 3. If significant bradycardia then consider pacemaker 4. If recurrent flutter consider AFL ablation 07/23/17 14:23 Subjective: Feels dyspneic at rest. Denies other complaints Time Spent With Patient: 30 min Objective: Vital Signs (8 Hrs) Temp Pulse Resp BP Pulse Ox 07/23/17 12:00 36.5 C 116 H 15 106/82 H 96 07/23/17 08:00 36.2 C 121 H 16 124/95 H 93 Intake/Output (24 Hrs) 07/22/17 07/23/17 07/24/17 11:59 11:59 11:59 Intake Total 1857 1816.8 Output Total 1200 Balance 657 1816.8 Intake: Oral (ml) 1000 1690 IV Infused (ml) 857 126.8 Amiodarone HCl 100 ml @ 100 600 mls/hr IV ONCE ONE Rx #:[id number] Amiodarone HCl 100 ml @ 100 600 mls/hr IV ONCE ONE Rx #:[id number] Amiodarone HCl 200 ml @ 400 33.333 mls/hr IV ONCE ONE Rx#:[id number] Amiodarone HCl 540 mg In 17 66.8 D5w 300 ml @ 16.667 mls/ hr IV ONCE ONE Rx#: [id number] Diltiazem HCl/D5w 125 ml 240 60 @ Per Protocol IV CONT JOSE Rx#:[id number] Output: Urine (ml) 1200 Urinal 1200 Other: Weight 88.4 kg 88 kg Number of Voids Toilet 1 1 Urinal 3 2 Number of Stools Toilet 1 Urinal 1 Result Diagrams: 07/22/17 04:25 07/22/17 04:25 Cardiac Labs: Cardiac Lab Results (72 Hrs) 07/21/17 07/21/17 16:58 05:03 Troponin I 0.075 H 0.132 H Telemetry: AFL with 2:1 conduction - Physical Exam Cardiovascular: regular rate and rhythm, systolic murmur Respiratory: reduced air movement ICD10 Worksheet Patient Problems: Problems Problem Status Onset Chest pain Acute Coronary artery disease Acute S/P CABG x 5 Acute Postoperative atrial fibrillation Acute Memory loss due to medical condition Chronic Encephalopathy acute Acute Dementia Acute Blister of foot without infection Acute Atrial flutter Acute Acute exacerbation of congestive heart failure Acute
[2017-07-23] MEDS: MEMANTINE HCL 5 MG TAB PO SCH (21:34)
[2017-07-23] MEDS: DONEPEZIL HCL 5 MG TAB PO SCH (21:35)
[2017-07-23] MEDS: ATORVASTATIN CALCIUM 10 MG TAB PO SCH (21:39)
[2017-07-24 05:02] LABS: INR 1.72 (0.83-1.16); PROTIME(PATIENT) 20.2 SEC (12.0-15.0)
[2017-07-24] MEDS ORDERED: ATROPINE SULFATE 1 MG/10 ML SYR IVP ONE (06:00)
--- NOTE | 2017-07-24 08:29 | CPEKG ---
Heart Rate: 118 RR Interval: 508 P-R Interval: 168 QRSD Interval: 110 QT Interval: 320 QTC Interval: 449 P Prather: 264 QRS Prather: 84 T Wave Prather: 263 EKG Severity - ABNORMAL ECG - EKG Impression: ECTOPIC ATRIAL TACHYCARDIA EKG Impression: NONSPECIFIC INTRAVENTRICULAR CONDUCTION DELAY EKG Impression: ST DEPRESSION, CONSIDER ISCHEMIA, INF LEADS Electronically Signed By: Tong Lee 25-Jul-2017 13:13:33
[2017-07-24] MEDS: METOPROLOL TARTRATE 25 MG TAB PO SCH ×2 (09:58→20:41)
[2017-07-24] MEDS: AMIODARONE HCL 200 MG TAB PO SCH ×3 (09:58→20:40)
[2017-07-24] MEDS: APIXABAN 5 MG TAB PO SCH ×2 (09:58→20:40)
[2017-07-24] MEDS: CHOLECALCIFEROL VIT D3 1,000 UNITS TAB PO SCH (09:58)
[2017-07-24] MEDS: ASPIRIN EC 81 MG TAB PO SCH (09:58)
[2017-07-24] MEDS: LEVALBUTEROL 0.63 MG/3 ML DEYVIAL IH PRN (13:13)
--- NOTE | 2017-07-24 14:15 | HOSPPROG ---
Hospitalist Progress Note Assessment/Plan: #Atrial flutter -EKG today shows tachycardia -oral Amiodarone and BB. Plan for JENNY and cardioversion in morning. Eliquis held for procedure #Expiratory stridor: unclear hx if new, but started on ACEI 07/23, will hold. CT chest with no mass, stenosis. No increased O2 needs #Acutely decompensated cardiomyopathy; due to tachy-arrhythmia. BB, started on ACEI yesterday, but stridor today, so will hold #JAVIER: Cr now up to 1.6. Hold ACEI, check urine lytes. May need small amount of IVFs #Moderate-severe MR: holding lasix with JAVIER #Vascular dementia: cont home meds #h/o CVA: statin, ASA #Diet: regular #DVT ppx: Eliquis #Disp: warrants inpatient admission for cardioversion, JENNY Subjective: denies CP or SOB Objective: Vital Signs Temp Pulse Resp BP Pulse Ox 35.7 C L 119 H 15 117/92 H 100 07/24/17 11:42 07/24/17 11:42 07/24/17 11:42 07/24/17 11:42 07/24/17 11:42 Laboratory Results 07/22/17 04:25 07/24/17 04:08 07/23/17 07/24/17 07/25/17 05:59 05:59 05:59 Intake Total 1816.8 1400 Balance 1816.8 1400 PT 20.2 SEC (12.0-15.0) H 07/24/17 04:08 INR 1.72 (0.83-1.16) H 07/24/17 04:08 - Physical Exam Constitutional: no apparent distress Eyes: PERRL Ears, Nose, Mouth, Throat: moist mucous membranes, hearing normal Cardiovascular: regular rate and rhythym, tachycardia, No edema Respiratory: No no rales or rhonchi, No expiratory wheeze Gastrointestinal: normoactive bowel sounds, soft, non-tender abdomen Genitourinary: no bladder fullness Skin: warm Musculoskeletal: full muscle strength Neurologic: CN II-XII Intact ICD10 Worksheet Patient Problems: Problems Problem Status Onset Acute exacerbation of congestive heart failure Acute Atrial flutter Acute Blister of foot without infection Acute Chest pain Acute Coronary artery disease Acute Dementia Acute Encephalopathy acute Acute Postoperative atrial fibrillation Acute S/P CABG x 5 Acute Memory loss due to medical condition Chronic
--- NOTE | 2017-07-24 15:50 | SOAPPROG ---
YOLANDA Progress Note Assessment/Plan: Assessment: 1. Coronary artery disease status post CABG 2. History of stroke and dementia 3. Hypertension 4. Mitral regurgitation 5. Atrial flutter with rapid conduction to the ventricles 07/24/17 15:48 Discussion: Rate-related cardiomyopathy. Improving heart rate on amiodarone and metoprolol. Episode of stridor yesterday felt to be potentially related to Blaine inhibition. Slight rise in creatinine. Will begin Isordil hydralazine tomorrow. Plan for cardioversion tomorrow as patient was not held NPO today. 07/23/17 10:50 Discussion: Rate-related cardiomyopathy associated with atrial flutter. Rate at 120 on amiodarone and metoprolol. Recommendations: Discontinue Eliquis today. Plan for pacing, cardioversion in 48 hours. Considerations for ablation. Discussed with patient, family, patient's primary care physician Dr. Ester Zamora. Initiate BLAINE-inhibitor for reduced LV systolic function. 07/22/17 11:28 Discussion: This is my first meeting with this patient and his son. The patient's son is his primary caregiver. He has been caring for his father for over 8 years in the setting of his vascular dementia. This of 6 months ago was able to occasionally plays golf. In discussing quality of life with the patient today his goal is to be able to try and play golf again. He understands his limitations as it relates to his dementia and history of stroke. Over the last several weeks to months the issues have been related to asymptomatic atrial dysrhythmia control of rate in the setting of worsening cardiomyopathy. Rate control has been difficult standard therapy. He has been completely revascularized. He has been assessed for mitral valve repair/replacement which is felt to be too high risk. I feel that portion of his myopathy is rate related. Recommendations: Aggressive rate control either with medications including beta-osvaldo, amiodarone, digoxin versus AV node ablation implantation of a chamber biventricular pacemaker. Discussed symptomatic care only. I will review his echoes, angiograms, case with Dr. Cervantes and the cardiovascular team. His son is amenable to aggressive conservative therapy. If our goal is persistent quality of life I think this is reasonable. 07/23/17 10:53 Subjective: Feeling well no complaints. Cardiac review of systems is negative for chest pain, shortness of breath, PND, orthopnea, palpitations, syncope, near syncope, edema. Objective: Vital Signs Temp Pulse Resp BP Pulse Ox 35.7 C L 119 H 15 117/92 H 100 07/24/17 11:42 07/24/17 11:42 07/24/17 11:42 07/24/17 11:42 07/24/17 11:42 Laboratory Results 07/22/17 04:25 07/24/17 04:08 07/23/17 07/24/17 07/25/17 05:59 05:59 05:59 Intake Total 1816.8 1400 Balance 1816.8 1400 PT 20.2 SEC (12.0-15.0) H 07/24/17 04:08 INR 1.72 (0.83-1.16) H 07/24/17 04:08 Physical Exam - Physical Exam General Appearance: alert Neck: non-tender, full range of motion Respiratory: chest non-tender, lungs clear Cardiac/Chest: normal peripheral pulses, tachycardia, irregularly irregular ICD10 Worksheet Patient Problems: Problems Problem Status Onset Chest pain Acute Coronary artery disease Acute S/P CABG x 5 Acute Postoperative atrial fibrillation Acute Memory loss due to medical condition Chronic Encephalopathy acute Acute Dementia Acute Blister of foot without infection Acute Atrial flutter Acute Acute exacerbation of congestive heart failure Acute
[2017-07-24] MEDS: hydrALAZINE 10 MG TAB PO SCH ×2 (17:37→20:41)
[2017-07-24] MEDS: ISOSORBIDE DINITRATE 20 MG TAB PO SCH ×2 (17:37→20:41)
[2017-07-24] MEDS: DONEPEZIL HCL 5 MG TAB PO SCH (20:39)
[2017-07-24] MEDS: MEMANTINE HCL 5 MG TAB PO SCH (20:40)
[2017-07-24] MEDS: ATORVASTATIN CALCIUM 10 MG TAB PO SCH (20:42)
[2017-07-25] MEDS: BENZONATATE 100 MG CAP PO PRN (00:36)
[2017-07-25] MEDS: IPRATROPIUM BROMIDE 0.5 MG/2.5 ML DEYVIAL IH PRN (00:42)
[2017-07-25] MEDS: LEVALBUTEROL 0.63 MG/3 ML DEYVIAL IH PRN ×2 (00:42→14:55)
[2017-07-25] MEDS: ISOSORBIDE DINITRATE 20 MG TAB PO SCH ×2 (10:09→17:13)
[2017-07-25] MEDS: APIXABAN 5 MG TAB PO SCH ×2 (10:09→21:13)
[2017-07-25] MEDS: ASPIRIN EC 81 MG TAB PO SCH (10:09)
[2017-07-25] MEDS: METOPROLOL TARTRATE 25 MG TAB PO SCH ×2 (10:10→21:19)
[2017-07-25] MEDS: AMIODARONE HCL 200 MG TAB PO SCH (10:10)
[2017-07-25] MEDS: CHOLECALCIFEROL VIT D3 1,000 UNITS TAB PO SCH (10:10)
[2017-07-25] MEDS: hydrALAZINE 10 MG TAB PO SCH ×3 (11:08→21:19)
[2017-07-25] MEDS ORDERED: PROPOFOL 200 MG/20 ML VIAL ONE (11:10)
--- NOTE | 2017-07-25 11:26 | PDANEPAE ---
ANE History of Present Illness CHF in atrial flutter. For JENNY/sync. CV ANE Past Medical History - Cardiovascular History Hx Hypertension: Yes Hx Arrhythmias: Yes Hx Coronary Artery / Peripheral Vascular Disease: Yes Hx CHF / Valvular Disease: Yes - Pulmonary History Hx Oxygen in Use at Home: No Hx Sleep Apnea: No - Neurologic History Hx Cerebrovascular Accident: Yes Hx Dementia: Yes - Endocrine History Hx Diabetes: No Hypothyroid: No - Chronic Pain History Chronic Pain: No ANE Review of Systems Review of Systems: - Exercise capacity METS (RN): 3 METS ANE Patient History - Allergies Allergies/Adverse Reactions: No Known Allergies Allergy (Unverified 07/20/17 20:22) - Home Medications Home Medications: Memantine HCl [Namenda 5 mg (*)] 5 mg PO HS 11/19/16 [Last Taken 07/20/17] Atorvastatin Calcium [Lipitor 20 mg (*)] 10 mg PO HS 07/20/17 [Last Taken ] Cholecalciferol Vit D3 [Vitamin D3 (*)] 1,000 units PO DAILY 07/20/17 [Last Taken 07/20/17] - Anes Hx Anes Hx: no prior problems (s/p CABG, S/p hip surgery) - Smoking Hx Smoking Status: Never smoked - Alcohol Use Alcohol Use: None - Family Anes Hx Family Anes Hx: none ANE Labs/Vital Signs - Labs Result Diagrams: 07/22/17 04:25 07/25/17 03:48 - Vital Signs Blood Pressure: 108/85 Heart Rate: 121 Respiratory Rate: 18 O2 Sat (%): 95 Height: 187.96 cm Weight: 88.9 kg ANE Physical Exam - Airway Neck exam: FROM Mallampati Score: Class 2 Mouth exam: normal dental/mouth exam - Pulmonary Pulmonary: no respiratory distress - Cardiovascular Cardiovascular: irregularly irregular - ASA Status ASA Status: III ANE Anesthesia Plan Anesthesia Plan: GA with mask (consent obtained from patient's son, his MPA.)
--- NOTE | 2017-07-25 11:48 | PDTEE1 ---
JENNY Cardioversion Procedure Procedure: electrical cardioversion, transesophageal echo Indications: atrial fibrillation Consent: signed and in chart Anticoagulation: eliquis Procedural Details: Pads were placed in anterior-posterior position. JENNY probe was advanced and standard images obtained. There is no evidence of left atrial or left atrial appendage thrombus. Informed consent was obtained from his son with power of assistant district attorney. Synchronized cardioversion attempt #1: 200J Results: normal sinus rhythm Conclusions: successful JENNY cardioversion (No thrombus seen on JENNY. Severe central MR with biventricular failure.) Patient Problems: Problems Problem Status Onset Chest pain Acute Coronary artery disease Acute S/P CABG x 5 Acute Postoperative atrial fibrillation Acute Memory loss due to medical condition Chronic Encephalopathy acute Acute Dementia Acute Blister of foot without infection Acute Atrial flutter Acute Acute exacerbation of congestive heart failure Acute
--- NOTE | 2017-07-25 11:50 | CPEKG ---
Heart Rate: 53 RR Interval: 1132 P-R Interval: 144 QRSD Interval: 110 QT Interval: 496 QTC Interval: 466 P Bergen: 38 QRS Bergen: 88 T Wave Bergen: 90 EKG Severity - ABNORMAL ECG - EKG Impression: SINUS RHYTHM EKG Impression: NONSPECIFIC INTRAVENTRICULAR CONDUCTION DELAY EKG Impression: BORDERLINE ST DEPRESSION, ANTERIOR LEADS Electronically Signed By: Tong Lee 25-Jul-2017 13:13:26
--- NOTE | 2017-07-25 11:52 | SOAPPROG ---
SOAP Progress Note Assessment/Plan: Assessment: 1. Coronary artery disease status post CABG 2. History of stroke and dementia 3. Hypertension 4. Mitral regurgitation 5. Atrial flutter with rapid conduction to the ventricles. Converted to SR Procedures 07/25/2017: JENNY/Cardioversion . 07/25/17 11:49 Discussion: Successful cardioversion today. In sinus with excellent hemodynamics on good heart failure regime. Upper airway congestion/cough remain. Reduce amiodarone to 200 mg daily. No further cardiac testing/procedures at this point. Follow up heart failure clinic one week after discharge. 07/24/17 15:48 Discussion: Rate-related cardiomyopathy. Improving heart rate on amiodarone and metoprolol. Episode of stridor yesterday felt to be potentially related to Blaine inhibition. Slight rise in creatinine. Will begin Isordil hydralazine. Plan for cardioversion tomorrow as patient was not held NPO today. 07/23/17 10:50 Discussion: Rate-related cardiomyopathy associated with atrial flutter. Rate at 120 on amiodarone and metoprolol. Recommendations: Discontinue Eliquis today. Plan for pacing, cardioversion in 48 hours. Considerations for ablation. Discussed with patient, family, patient's primary care physician Dr. Ester Zamora. Initiate BLAINE-inhibitor for reduced LV systolic function. 07/22/17 11:28 Discussion: This is my first meeting with this patient and his son. The patient's son is his primary caregiver. He has been caring for his father for over 8 years in the setting of his vascular dementia. This of 6 months ago was able to occasionally plays golf. In discussing quality of life with the patient today his goal is to be able to try and play golf again. He understands his limitations as it relates to his dementia and history of stroke. Over the last several weeks to months the issues have been related to asymptomatic atrial dysrhythmia control of rate in the setting of worsening cardiomyopathy. Rate control has been difficult standard therapy. He has been completely revascularized. He has been assessed for mitral valve repair/replacement which is felt to be too high risk. I feel that portion of his myopathy is rate related. Recommendations: Aggressive rate control either with medications including beta-osvaldo, amiodarone, digoxin versus AV node ablation implantation of a chamber biventricular pacemaker. Discussed symptomatic care only. I will review his echoes, angiograms, case with Dr. Cervantes and the cardiovascular team. His son is amenable to aggressive conservative therapy. If our goal is persistent quality of life I think this is reasonable. Subjective: No cardiac complaints. Objective: Medications Generic Name Dose Route Start Last Admin Trade Name Tariqq PRN Reason Stop Dose Admin Amiodarone HCl 200 mg 07/22/17 16:00 07/25/17 10:10 Amiodarone Hcl PO 01/18/18 15:59 200 mg TID JOSE Apixaban 5 mg 07/23/17 21:00 07/25/17 10:09 Eliquis PO 01/19/18 20:59 5 mg BID JOSE Aspirin Buffered 81 mg 07/21/17 09:00 07/25/17 10:09 Aspirin Ec PO 01/17/18 08:59 81 mg DAILY JOSE Atorvastatin Calcium 10 mg 07/21/17 21:00 07/24/17 20:42 Lipitor PO 01/17/18 20:59 10 mg HS [facility] Hydralazine HCl 10 mg 07/24/17 16:00 07/25/17 11:08 Apresoline PO 01/20/18 15:59 10 mg TID JOSE Isosorbide Dinitrate 10 mg 07/24/17 16:00 07/25/17 10:09 Isosorbide Dinitrate PO 01/20/18 15:59 10 mg TID JOSE Metoprolol Tartrate 25 mg 07/22/17 11:30 07/25/17 10:10 Lopressor PO 01/18/18 11:29 25 mg BID [facility] Vital Signs Temp Pulse Resp BP Pulse Ox 36.3 C 121 H 18 108/85 H 95 07/25/17 11:03 07/25/17 11:26 07/25/17 11:26 07/25/17 11:26 07/25/17 11:26 Laboratory Results 07/22/17 04:25 07/25/17 03:48 07/24/17 07/25/17 07/26/17 05:59 05:59 05:59 Intake Total 1400 700 Output Total 300 Balance 1400 400 PT 20.2 SEC (12.0-15.0) H 07/24/17 04:08 INR 1.72 (0.83-1.16) H 07/24/17 04:08 Laboratory Tests 07/25/17 03:48 Creatinine 1.3 Physical Exam - Physical Exam General Appearance: alert Neck: non-tender, full range of motion Respiratory: lungs clear, rhonchi, prolonged expiration Cardiac/Chest: regular rate, rhythm, tachycardia Peripheral Pulses: 1+: carotid (R), carotid (L) Abdomen: normal bowel sounds, non-tender, soft Back: Normal inspection Skin: warm/dry Neuro/Psych: alert ICD10 Worksheet Patient Problems: Problems Problem Status Onset Acute exacerbation of congestive heart failure Acute Atrial flutter Acute Blister of foot without infection Acute Chest pain Acute Coronary artery disease Acute Dementia Acute Encephalopathy acute Acute Postoperative atrial fibrillation Acute S/P CABG x 5 Acute Memory loss due to medical condition Chronic
[2017-07-25] MEDS ORDERED: PHENYLEPHRINE 10 MG/ML SDV ONE (12:02)
--- NOTE | 2017-07-25 12:36 | ECHO ---
[email or web address] [address] [address] Main: [phone] Fax: Transesophageal Echocardiography Name: ELIGH ANN ASTORGA MR#: [id number] Study Date: 07/25/2017 Study Time: 11:26 AM Date of : 1945 Age: 71 year(s) Height: ( ) Weight: ( ) BSA: Gender: Male Examination: JENNY Indication: Pre Cardioversion Image Quality: Contrast: Requested by: Nirav Peña Heart Rate: Rhythm: BP: / Procedure Staff Bulb Brander: Isai Whitten Reading Physician: Duncan Javed Requesting Provider: JENNY Exam Details Conclusions: Biventricular enlargement with severly reduced systolci function. No evidence of thrombus. Measurements: Chambers Valvular Assessment AV/MV Valvular Assessment TV/PV Normal Normal Normal Name Value Range Name Value Range Name Value Range EF Range: 30 % Additional Measurements: Findings: The ejection fraction is estimated to be 30 %. Left Atrial Appendage: Good color flow doppler in the left atrial appendage. No thrombus in left appendage. Exam Comments: Proceeded wth successful elective DC cardioversion.. l1n (No Signature Object) Patient: LEIGH ANN ASTORGA Study Date: 07/25/2017 Page 1 of 1 11:26 AM [id number]
[2017-07-25] MEDS ORDERED: ALBUTEROL 3 ML DEYVIAL IH STA (13:02)
[2017-07-25] MEDS ORDERED: FUROSEMIDE 20 MG/2 ML VIAL IVP ONE (13:15)
--- NOTE | 2017-07-25 13:23 | POSTANESTH ---
Post Anesthetic Evaluation Cardiovascular Status: Similar to Pre-Op Cond Respiratory Status: Similar to Pre-op Cond. Level of Consciousness/Mental Status: Can Participate in Eval Pain Control: Adequate, Prn Tx Ordered Nausea/Vomiting Control: Adequate, Prn Tx Ordered Complications Possibly Related to Anesthesia: None Noted
[2017-07-25] MEDS ORDERED: methylPREDNISolone SOD SUCC 125 MG/2 ML VIAL IVP STA (13:32)
--- NOTE | 2017-07-25 13:50 | HOSPPROG ---
Hospitalist Progress Note Assessment/Plan: #Atrial flutter -Es/p successful cardioversion. Amiodarone 200mg daily, Eliquis #Apneic episodes: upper airway wheezing. Worse after Profofol. Mild oropharyngeal dysphagia on video fluoroscopy; so may have food or saliva stuck. CT chest with no mass, stenosis. No increased O2 needs. RT to deep suction. Consider laryngoscopy #Acutely decompensated cardiomyopathy; due to tachy-arrhythmia. BB. Hold TRAVON-E with JAVIER #JAVIER: Cr improved. Hold ACEI #Moderate-severe MR: holding lasix with JAVIER #Vascular dementia: cont home meds #Adrenal adenomas: unchanged #Pulmonary nodule: 1.5cm, repeating CT in 3 months #h/o CVA: statin, ASA #Diet: regular #DVT ppx: Eliquis #Disp: transfer to SDU for monitoring Subjective: apenic episodes during cardioversion Objective: Vital Signs Temp Pulse Resp BP Pulse Ox 36.3 C 121 H 18 108/85 H 95 07/25/17 11:03 07/25/17 12:16 07/25/17 12:16 07/25/17 12:16 07/25/17 12:16 Laboratory Results 07/22/17 04:25 07/25/17 03:48 07/24/17 07/25/17 07/26/17 05:59 05:59 05:59 Intake Total 1400 700 Output Total 300 Balance 1400 400 PT 20.2 SEC (12.0-15.0) H 07/24/17 04:08 INR 1.72 (0.83-1.16) H 07/24/17 04:08 - Physical Exam Constitutional: no apparent distress Eyes: PERRL Ears, Nose, Mouth, Throat: moist mucous membranes Cardiovascular: tachycardia Respiratory: expiratory wheeze (over upper chest) Gastrointestinal: normoactive bowel sounds, soft, non-tender abdomen Genitourinary: no bladder fullness Skin: warm Neurologic: CN II-XII Intact Psychiatric: other (diffculty ) ICD10 Worksheet Patient Problems: Problems Problem Status Onset Acute exacerbation of congestive heart failure Acute Atrial flutter Acute Blister of foot without infection Acute Chest pain Acute Coronary artery disease Acute Dementia Acute Encephalopathy acute Acute Postoperative atrial fibrillation Acute S/P CABG x 5 Acute Memory loss due to medical condition Chronic
[2017-07-25] MEDS ORDERED: FUROSEMIDE 100 MG/10 ML VIAL IVP ONE (14:02)
--- NOTE | 2017-07-25 14:07 | CPEKG ---
Heart Rate: 55 RR Interval: 1091 P-R Interval: 140 QRSD Interval: 102 QT Interval: 484 QTC Interval: 463 P Heflin: 38 QRS Heflin: 75 T Wave Heflin: 107 EKG Severity - ABNORMAL ECG - EKG Impression: SINUS RHYTHM EKG Impression: ATRIAL PREMATURE COMPLEX EKG Impression: REPOL ABNRM SUGGESTS ISCHEMIA, ANTERIOR LEADS Electronically Signed By: Tong Lee 27-Jul-2017 13:25:10
--- NOTE | 2017-07-25 14:54 | ECHO ---
[email or web address] [address] [address] Main: [phone] Fax: Transthoracic Echocardiogram Name: LEIGH ANN ASTORGA MR#: [id number] Study Date: 07/25/2017 Study Time: 02:17 PM Date of : 1945 Age: 71 year(s) Height: ( ) Weight: ( ) BSA: Gender: Male Examination: Limited Echo Indication: Post Cardioversion Image Quality: Contrast: Requested by: Nirav Peña BP: 107 mmHg/85 mmHg Heart Rate: Rhythm: Indication: Post Cardioversion Procedure Staff Registered Sales Assistant: Isai Whitten Reading Physician: Duncan Javed Requesting Provider: Measurements: Chambers Valvular Assessment AV/MV Valvular Assessment TV/PV Normal Normal Normal Name Value Range Name Value Range Name Value Range IVSd (2D): 1.2 cm (0.6 cm-1.1 TR Vmax: 2.48 mm/s ( - ) cm) TR PGmax: 25 mmHg ( - ) LVDd (2D): 5.1 cm (4.2 cm-5.9 syst. PAP: 30 mmHg ( - ) cm) LVDs (2D): 4.4 cm (2.1 cm-4 cm) LVPWd (2D): 1.0 cm (0.6 cm-1 cm) LVEF (2D): 30 (>=54 %) Continued Measurements: Valvular Assessment TV/PV Name Value CVP (est.): 5 mmHg Findings: Left Ventricle: Normal size left ventricle. Exam Comments: This is a limited echo to evaluate LV function and for a pericardial effusion. There is no pericardial effusion, the left venticular function is approximately 30% There is severe right venticle hypokinesis. . Patient: LEIGH ANN ASTORGA Study Date: 07/25/2017 Page 1 of 2 02:17 PM (No Signature Object) Patient: LEIGH ANN ASTORGA Study Date: 07/25/2017 Page 2 of 2 02:17 PM [id number]
--- NOTE | 2017-07-25 16:31 | ASMTCMCOM ---
CM Note CM Note Notes: Phone call from Tara Lorenzo from the [facility]. Tara requested updates. SAVANNA sent updated notes. CM to follow. Plan: largely dictated by [facility] Date Signed: 07/25/2017 04:31 PM Electronically Signed By:JESSA Agustin
[2017-07-25] MEDS: ATORVASTATIN CALCIUM 10 MG TAB PO SCH (21:13)
[2017-07-25] MEDS: DONEPEZIL HCL 5 MG TAB PO SCH (21:13)
--- NOTE | 2017-07-25 21:18 | GCON ---
[f rep st] CONSULTATION HISTORY OF PRESENT ILLNESS: This patient is a 71-year-old male with a history of significant dementi a with expressive aphasia, presumably from a remote stroke, who was admitted to [facility] on 07/20 with shortness of breath and lightheadedness that had been intermittent for approximatel y 1 month. This was reported to be worse with activity and better with rest. [facility], he was found to have a heart rate of about 260. He was treated with adenosine, whi ch revealed 2:1 atrial flutter. He was initially started on a diltiazem drip, followed by amiodarone . An echocardiogram revealed an ejection fraction of 20% to 25%. He was given IV Lasix at that time , transitioned to oral amiodarone and metoprolol, but continued to have symptoms, and planned cardiov ersion was scheduled. On the , he had an episode of what was thought to be expiratory wheezing a nd acute shortness of breath. An TRAVON inhibitor had been started that day, so that was discontinued, and a swallow evaluation showed disorganized swallowing with residue in the posterior pharynx, consis tent with mild dysphagia, but no rae penetration. Today, he underwent cardioversion using about 20 0 joules and propofol for sedation. According to the CV nursing staff, he had several periods of ac jason dyspnea during this period that were occurring about every 5 minutes. He took about 45 minutes t o fully recover from the propofol, but continued to have episodes of acute shortness of breath with l oud audible wheezing. Each episode lasted only about 5 or 10 seconds, but was associated with signif icant diaphoresis, was relieved by sitting up. I was called to evaluate him after one of these episo victor manuel. He had been given Solu-Medrol shortly before that, as well as, I believe, albuterol nebulizer t reatment. On arrival in the room, the patient was awake and alert, and though did speak, his answers were unreliable, as most of the staff knew him well. In any case, he did not appear to be in any di stress until he fell asleep and was clearly apneic during that period, followed by an episode of sign ificant shortness of breath with expiratory wheezing, but not stridor. Initially I thought this was consistent mostly with sleep apnea, either obstructive or central apnea, particularly given his cardi ac history, but an episode also occurred in my presence while he was awake. When he did have this ep isode of shortness of breath while awake, he did appear to be coughing, trying to clear something fro m his airways. During this period of time, however, his lungs sounded clear without obvious overt pu lmonary edema. REVIEW OF SYSTEMS: Otherwise negative as gleaned from the chart. PAST MEDICAL HISTORY: 1. Coronary artery disease, having had cardiac stents in the past, as well as coronary artery bypass grafting. 2. Remote stroke, the details of which are unknown. 3. Dementia. He has had difficulty with wandering around. 4. Hypertension. 5. He did have an episode of SVT or atrial flutter in October 2016, was discharged on aspirin, eventua lly switched to Eliquis. 6. He also has moderate to severe mitral regurgitation that is thought to be nonoperable by an echo from this admission and a left ventricular congestive heart failure with an ejection fraction of 20% to 30%. PAST SURGICAL HISTORY: 1. Total hip arthroplasty. 2. CABG as described above. SOCIAL HISTORY: He is a lifelong nonsmoker of tobacco, but does smoke marijuana quite regularly. Th ere is no alcohol or IV drug use. FAMILY HISTORY: Noncontributory at this time. CURRENT MEDICATIONS: , Tylenol, amiodarone, Eliquis, aspirin, Lipitor, Tessalon Perles, vi tamin D, Benadryl, Aricept, guaifenesin, hydralazine, Atrovent p.r.n., Xopenex p.r.n., Isordil, Namen da, metoprolol, Zofran. PHYSICAL EXAMINATION: VITAL SIGNS: He has been afebrile throughout. Heart rate was about 64, sinus rhythm. Blood pressure 111/73, respirations 10, oxygen saturation 100% on 2 L. GENERAL: As I said , most of the time he was alert and without distress, except for these intermittent brief periods. H e was not using accessory muscles for breathing. HEENT: Pupils were equally round and reactive to l ight, nonicteric and noninjected. Mucous membranes were moist with some thickened mucus in the poste rior pharynx, but his Mallampati score was low with a good view and no obvious obstruction or mucus p lug in that region. NECK: Otherwise supple without adenopathy or jugular vein distention. There wa s no stridor. LUNGS: Breath sounds were mostly clear to auscultation bilaterally except during thes e episodes, which were difficult to ascertain, but sounded more like upper airway or extrathoracic wh eezing. HEART: Regular rate and rhythm. ABDOMEN: Soft, nontender, nondistended without hepatosple nomegaly. EXTREMITIES: No clubbing, cyanosis, or edema. NEUROLOGIC: Grossly nonfocal. SKIN: War m and dry without evidence of rash, again, except during these episodes when he would become quite di aphoretic. OBJECTIVE DATA: CT scan done 06/2028 showing bilateral lower lobe septal thickening with very mild p atchy ground-glass infiltrates. There was also a wohmyo-xcubs-ybrrphqel nodule in the left upper lob e that was measured at 1.5 x 0.8 cm. There were some calcifications in the right lower lobe of old g ranulomas and a small right effusion, but the film itself was degraded by motion artifact. White count has been normal, platelets of 116, hematocrit 42 from several days ago. His basic metabo lic panel from today is normal, save for a BUN of 57 and creatinine of 1.3, which was previously 1.6, presumably from efforts at diuresis. ASSESSMENT/PLAN: Intermittent wheezing episodes associated with significant dyspnea. It is difficul t to determine the exact etiology of these. I am concerned that he does have mucus plugging and pote ntially could have even food particles in his posterior pharynx that he is trying to cough out. The situation is complicated by observed apneas in the CVC lab that were clearly diminishing as his sedat ion was wearing off. Our plan is to observe him in the step-down unit overnight and do some nasotrac heal suctioning with Respiratory Therapy and continue to give him as-needed nebulizers. Will keep hi m n.p.o. for now and continue to observe. What I do not see is stridor, which is an inspiratory sign , or obvious obstruction with his tongue, so I do not believe this is related to TRAVON inhibitor or mas s. I do not believe he has chronic obstructive pulmonary disease or reactive airways disease, despit e his heavy marijuana usage. Should this fail and he continues to have issues, we could always use l ocal aerosolized lidocaine and look under direct laryngoscopy in the posterior pharynx versus broncho scopy in the upper airway. I do not think he needs an Tkgx-Jfpx-Qynrgu consult at this time. These issues were explained in detail with Dr. Cesar, as well as Dr. Javed. /[id number]/MODL
[2017-07-25] MEDS: MEMANTINE HCL 5 MG TAB PO SCH (21:29)
[2017-07-25] MEDS: ISOSORBIDE DINITRATE 10 MG TAB PO SCH (21:37)
[2017-07-26] MEDS: GUAIFENESIN/DM 10 ML UDCUP PO PRN ×2 (00:21→21:07)
[2017-07-26] MEDS: BENZONATATE 100 MG CAP PO PRN ×2 (00:21→21:07)
[2017-07-26] MEDS: LEVALBUTEROL 0.63 MG/3 ML DEYVIAL IH PRN (01:47)
[2017-07-26] MEDS: diphenhydrAMINE 25 MG CAP PO PRN ×2 (03:33→22:55)
[2017-07-26] MEDS: AMIODARONE HCL 200 MG TAB PO SCH (09:18)
[2017-07-26] MEDS: hydrALAZINE 10 MG TAB PO SCH ×3 (09:18→22:12)
[2017-07-26] MEDS: CHOLECALCIFEROL VIT D3 1,000 UNITS TAB PO SCH (09:18)
[2017-07-26] MEDS: APIXABAN 5 MG TAB PO SCH ×2 (09:18→20:29)
[2017-07-26] MEDS: ASPIRIN EC 81 MG TAB PO SCH (09:18)
[2017-07-26] MEDS: METOPROLOL TARTRATE 25 MG TAB PO SCH ×2 (09:19→20:30)
[2017-07-26] MEDS: ISOSORBIDE DINITRATE 10 MG TAB PO SCH ×3 (09:19→22:11)
--- NOTE | 2017-07-26 09:55 | PDINTPN ---
Watch Commander Progress Note Assessment/Plan: Assessment/plan: 71 M with remote CVA and expressive aphasia, admitted 07/20/17 with paroxysms of dyspnea and found to have a HR 260. He was treated with adenosine which revealed a 2:1 atrial flutter. He was initially treated with diltiazem and amiodarone. On 07/24 he was noted to have brief periods of expiratory wheezing, which led to a fairly unremarkable chest CT but a swallow study showing disorganized swallow without rae aspiration. He underwent successful cardioversion on 07/25, but the procedure was complicated by frequent paroxysms of acute dyspnea associated with diaphoresis, particularly while still sedated with propofol. Some episodes were also noted during periods of wakefulness as well, however. He was subsequently transferred to the SDU for closer monitoring. * Dyspnea- althouh uncleear, I suspect these episodes are sleep apnea related, with possible additional abnormal secretion management in the setting of documented abnormal swallow (his SO also reports common cough with PO). He will need an eventual sleep study and speech path is already working with him and recommended thickened nectar. His episodes of dyspnea do not seem related to his ongoing CHF (EF 20-30%), and there is no evidence supporting infection, angioedema, vocal cord dysfunction, COPD/asthma, foreign body, laryngeal abscess , VTE or CVA. He can use bipap qhs while in the hospital and arrange for an outpatient sleep study (not a home study, either, since he could kyle likely have central versus obstructive apneas). * * OK for PCU Subjective: feels well and denies sob. used bipap overnight without difficulty per patient. Objective: Vital Signs Temp Pulse Resp BP Pulse Ox 36.3 C 101 H 19 106/79 97 07/26/17 07:45 07/26/17 07:45 07/26/17 07:45 07/26/17 07:45 07/26/17 07:45 Microbiology 07/20/17 23:10 Blood Culture - Final Blood 07/20/17 21:55 Blood Culture - Final Blood Laboratory Results 07/22/17 04:25 07/26/17 04:00 07/25/17 07/26/17 07/27/17 05:59 05:59 05:59 Intake Total 700 1150 Output Total 300 260 Balance 400 890 PT 20.2 SEC (12.0-15.0) H 07/24/17 04:08 INR 1.72 (0.83-1.16) H 07/24/17 04:08 Physical Exam - Physical Exam General Appearance: WD/WN, alert, no apparent distress EENT: PERRL/EOMI Neck: supple Respiratory: lungs clear, normal breath sounds, No respiratory distress Cardiac/Chest: regular rate, rhythm, No edema Abdomen: normal bowel sounds, non-tender, soft, No distended Skin: normal color, warm/dry, No cyanosis Lymphatic: no adenopathy Neuro/Psych: alert, normal mood/affect, oriented x 3, other (expressive aphasia , but seems to understand well and answers yes/no appropriately) ICD10 Worksheet Patient Problems: Problems Problem Status Onset Acute exacerbation of congestive heart failure Acute Atrial flutter Acute Blister of foot without infection Acute Chest pain Acute Coronary artery disease Acute Dementia Acute Encephalopathy acute Acute Postoperative atrial fibrillation Acute S/P CABG x 5 Acute Memory loss due to medical condition Chronic
--- NOTE | 2017-07-26 11:08 | HOSPPROG ---
Hospitalist Progress Note Assessment/Plan: 71 yo M with PMH of vascular dementia/cva as well as CAD s/p CABG admitted with SOB and found to have a flutter as well as acute systolic heart failure # Atrial flutter -Es/p successful cardioversion. Amiodarone 200mg daily, Eliquis #Apneic episodes/sleep apnea: improved with cpap #Acutely decompensated systolic heart failure cardiomyopathy: With EF initially 20-25% more recently improved to 30% s/p CV, due to tachy-arrhythmia. BB. Hold TRAVON-E with JAVIER #JAVIER: has had some fluctuation in creatinine but again trending up likely 2/2 diuresis. Hold ACEI, hold on further diuresis #Moderate-severe MR: holding lasix with JAVIER as above #Vascular dementia: cont home meds # CAD: with hx of CABG #Adrenal adenomas: unchanged #Pulmonary nodule: 1.5cm, repeating CT in 3 months #h/o CVA: statin, ASA #Diet: regular #DVT ppx: Eliquis Dispo: IP status, likely dc in coming days Patient new to my care. Old records reviewed and summarized as above. Care plan reviewed with patients family present at bedside. Subjective: no significant overnight events, paitent states he feels great, had an episode of back pain this am Objective: Vital Signs Temp Pulse Resp BP Pulse Ox 36.3 C 101 H 19 106/79 97 07/26/17 07:45 07/26/17 07:45 07/26/17 07:45 07/26/17 07:45 07/26/17 07:45 Microbiology 07/20/17 23:10 Blood Culture - Final Blood 07/20/17 21:55 Blood Culture - Final Blood Laboratory Results 07/22/17 04:25 07/26/17 04:00 07/25/17 07/26/17 07/27/17 05:59 05:59 05:59 Intake Total 700 1150 Output Total 300 260 Balance 400 890 PT 20.2 SEC (12.0-15.0) H 07/24/17 04:08 INR 1.72 (0.83-1.16) H 07/24/17 04:08 awake alert anicteric op clear rrr no mrg cta soft nt nd no cce warm dry well perfused oriented, cognitive deficits apparent ICD10 Worksheet Patient Problems: Problems Problem Status Onset Chest pain Acute Coronary artery disease Acute S/P CABG x 5 Acute Postoperative atrial fibrillation Acute Memory loss due to medical condition Chronic Encephalopathy acute Acute Dementia Acute Blister of foot without infection Acute Atrial flutter Acute Acute exacerbation of congestive heart failure Acute
--- NOTE | 2017-07-26 12:15 | SOAPPROG ---
SOAP Progress Note Assessment/Plan: Assessment: 1. Coronary artery disease status post CABG 2. History of stroke and dementia 3. Hypertension 4. Mitral regurgitation 5. Atrial flutter with rapid conduction to the ventricles. Converted to SR 6. Sleep apnea/respiratory distress. Improved with CPAP 7. Rising creatinine. Procedures 07/25/2017: JENNY/Cardioversion . 07/26/17 12:12 Discussion: Successful cardioversion yesterday with improvement seen in systolic function already by echocardiogram. Patient is on good medical therapy for cardiomyopathy including ice heard all hydralazine for afterload reduction, beta-osvaldo. Will continue low-dose amiodarone. He did receive significant diuresis yesterday during his postprocedure episode of respiratory distress. I think this likely explains his bump in creatinine. Gentle hydration with repeat measurement tomorrow. 07/25/17 11:49 Discussion: Successful cardioversion today. In sinus with excellent hemodynamics on good heart failure regime. Upper airway congestion/cough remain. Reduce amiodarone to 200 mg daily. No further cardiac testing/procedures at this point. Follow up heart failure clinic one week after discharge. 07/24/17 15:48 Discussion: Rate-related cardiomyopathy. Improving heart rate on amiodarone and metoprolol. Episode of stridor yesterday felt to be potentially related to Blanie inhibition. Slight rise in creatinine. Will begin Isordil hydralazine. Plan for cardioversion tomorrow as patient was not held NPO today. 07/23/17 10:50 Discussion: Rate-related cardiomyopathy associated with atrial flutter. Rate at 120 on amiodarone and metoprolol. Recommendations: Discontinue Eliquis today. Plan for pacing, cardioversion in 48 hours. Considerations for ablation. Discussed with patient, family, patient's primary care physician Dr. Ester Zamora. Initiate BLAINE-inhibitor for reduced LV systolic function. 07/22/17 11:28 Discussion: This is my first meeting with this patient and his son. The patient's son is his primary caregiver. He has been caring for his father for over 8 years in the setting of his vascular dementia. This of 6 months ago was able to occasionally plays golf. In discussing quality of life with the patient today his goal is to be able to try and play golf again. He understands his limitations as it relates to his dementia and history of stroke. Over the last several weeks to months the issues have been related to asymptomatic atrial dysrhythmia control of rate in the setting of worsening cardiomyopathy. Rate control has been difficult standard therapy. He has been completely revascularized. He has been assessed for mitral valve repair/replacement which is felt to be too high risk. I feel that portion of his myopathy is rate related. Recommendations: Aggressive rate control either with medications including beta-osvaldo, amiodarone, digoxin versus AV node ablation implantation of a chamber biventricular pacemaker. Discussed symptomatic care only. I will review his echoes, angiograms, case with Dr. Cervantes and the cardiovascular team. His son is amenable to aggressive conservative therapy. If our goal is persistent quality of life I think this is reasonable. Subjective: Feeling significantly better today no more shortness of breath episodes. Denies PND orthopnea. He has had no palpitations or chest pain. Objective: Medications Generic Name Dose Route Start Last Admin Trade Name Freq PRN Reason Stop Dose Admin Apixaban 5 mg 07/23/17 21:00 07/26/17 09:18 Eliquis PO 01/19/18 20:59 5 mg BID [facility] Amiodarone HCl 200 mg 07/26/17 09:00 07/26/17 09:18 Amiodarone Hcl PO 01/22/18 08:59 200 mg DAILY JOSE Aspirin Buffered 81 mg 07/21/17 09:00 07/26/17 09:18 Aspirin Ec PO 01/17/18 08:59 81 mg DAILY JOSE Atorvastatin Calcium 10 mg 07/21/17 21:00 07/25/17 21:13 Lipitor PO 01/17/18 20:59 10 mg HS [facility] Hydralazine HCl 10 mg 07/24/17 16:00 07/26/17 09:18 Apresoline PO 01/20/18 15:59 Not Given TID [facility] Isosorbide Dinitrate 10 mg 07/25/17 22:00 07/26/17 09:19 Isosorbide Dinitrate PO 01/20/18 15:59 Not Given TID JOSE Metoprolol Tartrate 25 mg 07/22/17 11:30 07/26/17 09:19 Lopressor PO 01/18/18 11:29 Not Given BID JOSE Vital Signs Temp Pulse Resp BP Pulse Ox 36.6 C 64 20 110/85 H 99 07/26/17 11:50 07/26/17 11:50 07/26/17 11:50 07/26/17 11:50 07/26/17 11:50 Microbiology 07/20/17 23:10 Blood Culture - Final Blood 07/20/17 21:55 Blood Culture - Final Blood Laboratory Results 07/22/17 04:25 07/26/17 04:00 07/25/17 07/26/17 07/27/17 05:59 05:59 05:59 Intake Total 700 1150 Output Total 300 260 Balance 400 890 PT 20.2 SEC (12.0-15.0) H 07/24/17 04:08 INR 1.72 (0.83-1.16) H 07/24/17 04:08 Physical Exam - Physical Exam General Appearance: alert Neck: full range of motion Respiratory: lungs clear Cardiac/Chest: regular rate, rhythm, No gallop, No JVD Peripheral Pulses: 1+: carotid (R), carotid (L) Abdomen: normal bowel sounds, non-tender Back: Normal inspection Skin: normal color Neuro/Psych: alert ICD10 Worksheet Patient Problems: Problems Problem Status Onset Chest pain Acute Coronary artery disease Acute S/P CABG x 5 Acute Postoperative atrial fibrillation Acute Memory loss due to medical condition Chronic Encephalopathy acute Acute Dementia Acute Blister of foot without infection Acute Atrial flutter Acute Acute exacerbation of congestive heart failure Acute
--- NOTE | 2017-07-26 15:40 | ASMTCMCOM ---
CM Note CM Note Notes: Tara with the [facility] program called for updates, which were provided. Tara would like for all calls over the weekend to go to [phone]. CM following. Date Signed: 07/26/2017 03:39 PM Electronically Signed By:Opal Buitrago LCSW
[2017-07-26] MEDS: ATORVASTATIN CALCIUM 10 MG TAB PO SCH (20:29)
[2017-07-26] MEDS: DONEPEZIL HCL 5 MG TAB PO SCH (20:30)
[2017-07-26] MEDS: MEMANTINE HCL 5 MG TAB PO SCH (20:30)
[2017-07-26] MEDS ORDERED: ALBUMIN 25% 200 ML IV ONE (21:26)
[2017-07-27] MEDS: ISOSORBIDE DINITRATE 10 MG TAB PO SCH ×3 (09:36→22:00)
[2017-07-27] MEDS: CHOLECALCIFEROL VIT D3 1,000 UNITS TAB PO SCH (09:36)
[2017-07-27] MEDS: ASPIRIN EC 81 MG TAB PO SCH (09:37)
[2017-07-27] MEDS: METOPROLOL TARTRATE 25 MG TAB PO SCH ×2 (09:37→20:22)
[2017-07-27] MEDS: APIXABAN 5 MG TAB PO SCH ×2 (09:37→20:22)
[2017-07-27] MEDS: hydrALAZINE 10 MG TAB PO SCH ×3 (09:37→22:00)
[2017-07-27] MEDS: AMIODARONE HCL 200 MG TAB PO SCH (09:37)
[2017-07-27] MEDS: GUAIFENESIN/DM 10 ML UDCUP PO PRN (09:42)
[2017-07-27] MEDS: BENZONATATE 100 MG CAP PO PRN (09:42)
[2017-07-27] MEDS: diphenhydrAMINE 25 MG CAP PO PRN (09:42)
[2017-07-27] MEDS ORDERED: NS 1,000 ML IV SCH (11:15)
[2017-07-27] MEDS ORDERED: LORazepam 0.5 MG TAB PO ONE (11:26)
[2017-07-27] MEDS: LORazepam 0.5 MG TAB PO PRN ×2 (12:09→15:38)
--- NOTE | 2017-07-27 12:33 | HOSPPROG ---
Hospitalist Progress Note Assessment/Plan: 71 yo M with PMH of vascular dementia/cva as well as CAD s/p CABG admitted with SOB and found to have a flutter as well as acute systolic heart failure # Atrial flutter -Es/p successful cardioversion. Amiodarone 200mg daily, Eliquis #Apneic episodes/wheezing/sleep apnea: improved with cpap, will need outpatient sleep study. Complicated by some swallowing abnormalities however not clearly aspiration. #Acutely decompensated systolic heart failure cardiomyopathy: With EF initially 20-25% more recently improved to 30% s/p CV, due to tachy-arrhythmia. BB. Hold TRAVON-E with JAVIER #JAVIER: has had some fluctuation in creatinine but again trending up likely 2/2 diuresis, no travon for now as above, no further diuresis for now. FENA 0.05% c/w pre renal etiology. Will run IVF today and recheck in am. #Moderate-severe MR: followed by cardiology, no current active issues #Vascular dementia/ h/o CVA x 2: cont home meds including asa, statin, donepezil. Lives at [facility] independently and will need to be sure that they can take him back after dc. # CAD: with hx of CABG #Adrenal adenomas: unchanged #Pulmonary nodule: 1.5cm, repeat CT in 3 months # thrombocytopenia: mild, will recheck in am #h/o CVA: statin, ASA #Diet: regular #DVT ppx: Eliquis Dispo: IP status, likely dc in am if renal function improved Subjective: no significant overnight events, patient notes that he would very much like to go home, he did not sleep at all last night due to anxiety Objective: Vital Signs Temp Pulse Resp BP Pulse Ox 36.4 C 60 16 116/88 H 97 07/27/17 07:52 07/27/17 07:52 07/27/17 07:52 07/27/17 07:52 07/27/17 07:52 Microbiology 07/20/17 23:10 Blood Culture - Final Blood 07/20/17 21:55 Blood Culture - Final Blood Laboratory Results 07/22/17 04:25 07/27/17 04:19 07/26/17 07/27/17 07/28/17 05:59 05:59 05:59 Intake Total 1150 1100 Output Total 260 Balance 890 1100 PT 20.2 SEC (12.0-15.0) H 07/24/17 04:08 INR 1.72 (0.83-1.16) H 07/24/17 04:08 awake alert anicteric op clear rrr no mrg cta soft nt nd no cce warm dry well perfused oriented, cognitive deficits apparent ICD10 Worksheet Patient Problems: Problems Problem Status Onset Acute exacerbation of congestive heart failure Acute Atrial flutter Acute Blister of foot without infection Acute Chest pain Acute Coronary artery disease Acute Dementia Acute Encephalopathy acute Acute Postoperative atrial fibrillation Acute S/P CABG x 5 Acute Memory loss due to medical condition Chronic
[2017-07-27] MEDS: ATORVASTATIN CALCIUM 10 MG TAB PO SCH (20:22)
[2017-07-27] MEDS: MEMANTINE HCL 5 MG TAB PO SCH (20:22)
[2017-07-27] MEDS: DONEPEZIL HCL 5 MG TAB PO SCH (20:23)
[2017-07-28 04:58] LABS: PLATELET COUNT 92 10^3/uL (150-400)
[2017-07-28] MEDS: hydrALAZINE 10 MG TAB PO SCH ×3 (07:35→21:55)
[2017-07-28] MEDS: METOPROLOL TARTRATE 25 MG TAB PO SCH ×2 (07:35→21:53)
[2017-07-28] MEDS: CHOLECALCIFEROL VIT D3 1,000 UNITS TAB PO SCH (07:35)
[2017-07-28] MEDS: APIXABAN 5 MG TAB PO SCH ×2 (07:36→21:55)
[2017-07-28] MEDS: ASPIRIN EC 81 MG TAB PO SCH (07:36)
[2017-07-28] MEDS: ISOSORBIDE DINITRATE 10 MG TAB PO SCH ×3 (07:36→21:54)
[2017-07-28] MEDS: AMIODARONE HCL 200 MG TAB PO SCH (07:43)
--- NOTE | 2017-07-28 13:49 | HOSPPROG ---
Hospitalist Progress Note Assessment/Plan: 71 yo M with PMH of vascular dementia/cva as well as CAD s/p CABG admitted with SOB and found to have a flutter as well as acute systolic heart failure # Atrial flutter -Es/p successful cardioversion. Amiodarone 200mg daily, Eliquis #Apneic episodes/wheezing/sleep apnea: improved with cpap, will need outpatient sleep study. Complicated by some swallowing abnormalities however not clearly aspiration. Recurrent again today though less severe, does seem to have some wheezing again. Will change nebs to scheduled, obtain CXR, mucomyst, IS. O2 sats have not dropped significantly. #Acutely decompensated systolic heart failure cardiomyopathy: With EF initially 20-25% more recently improved to 30% s/p CV, due to tachy-arrhythmia. BB. Hold TRAVON-E with JAVIER #JAVIER: trended up post diuresis and FENa of 0.05% c/w pre renal, improved with IVF yesterday and near baseline that is closer to 1.2 #Moderate-severe MR: followed by cardiology, no current active issues #Vascular dementia/ h/o CVA x 2: cont home meds including asa, statin, donepezil. Lives at [facility] independently and will need to be sure that they can take him back after dc--CM involved. # CAD: with hx of CABG #Adrenal adenomas: unchanged #Pulmonary nodule: 1.5cm, repeat CT in 3 months # thrombocytopenia: mild, will recheck in am #h/o CVA: statin, ASA #Diet: regular #DVT ppx: Eliquis Dispo: IP status, dc delayed due to breathing concerns and JAVIER--JAVIER improved but breathing an issue again Care plan reviewed with patients friend present at bedside. Subjective: this am patient notes feeling "sick" states that his breathing feels more difficult and that he feels like he needs to cough stuff up but cannot, friend was noticing that since last night he has been wheezing more again Objective: Vital Signs Temp Pulse Resp BP Pulse Ox 36.5 C 58 L 14 130/86 H 91 L 07/28/17 12:00 07/28/17 12:00 07/28/17 12:00 07/28/17 12:00 07/28/17 12:00 Laboratory Results 07/28/17 04:01 07/28/17 04:01 07/27/17 07/28/17 07/29/17 05:59 05:59 05:59 Intake Total 1100 1450 Balance 1100 1450 PT 20.2 SEC (12.0-15.0) H 07/24/17 04:08 INR 1.72 (0.83-1.16) H 07/24/17 04:08 awake alert anicteric op clear rrr no mrg cta, scattered wheeze, dry cough soft nt nd no cce warm dry well perfused oriented, speech deficits apparent - Time Spent With Patient Time Spent with Patient: greater than 35 minutes Time Spent with Patient: Greater than 35 minutes spent on this patients care, greater than 50% of time spent counseling, educating, and coordinating care regarding the above mentioned plan. ICD10 Worksheet Patient Problems: Problems Problem Status Onset Acute exacerbation of congestive heart failure Acute Atrial flutter Acute Blister of foot without infection Acute Chest pain Acute Coronary artery disease Acute Dementia Acute Encephalopathy acute Acute Postoperative atrial fibrillation Acute S/P CABG x 5 Acute Memory loss due to medical condition Chronic
[2017-07-28] MEDS: ACETYLCYSTEINE 10% IH/PO 4 ML VIAL IH SCH ×2 (16:23→19:50)
[2017-07-28] MEDS: LEVALBUTEROL 0.63 MG/3 ML DEYVIAL IH SCH ×2 (16:25→19:51)
[2017-07-28] MEDS: IPRATROPIUM BROMIDE 0.5 MG/2.5 ML DEYVIAL IH SCH ×2 (16:25→19:50)
[2017-07-28] MEDS: DONEPEZIL HCL 5 MG TAB PO SCH (21:53)
[2017-07-28] MEDS: ATORVASTATIN CALCIUM 10 MG TAB PO SCH (21:53)
[2017-07-28] MEDS: MEMANTINE HCL 5 MG TAB PO SCH (21:54)
[2017-07-29] MEDS: ACETYLCYSTEINE 10% IH/PO 4 ML VIAL IH SCH ×2 (05:39→10:30)
[2017-07-29] MEDS: IPRATROPIUM BROMIDE 0.5 MG/2.5 ML DEYVIAL IH SCH ×4 (05:39→20:46)
[2017-07-29] MEDS: LEVALBUTEROL 0.63 MG/3 ML DEYVIAL IH SCH ×4 (05:39→20:46)
[2017-07-29] MEDS: CHOLECALCIFEROL VIT D3 1,000 UNITS TAB PO SCH (08:14)
[2017-07-29] MEDS: APIXABAN 5 MG TAB PO SCH ×2 (08:14→20:24)
[2017-07-29] MEDS: ISOSORBIDE DINITRATE 10 MG TAB PO SCH ×3 (08:14→21:11)
[2017-07-29] MEDS: ASPIRIN EC 81 MG TAB PO SCH (08:14)
[2017-07-29] MEDS: AMIODARONE HCL 200 MG TAB PO SCH (08:15)
[2017-07-29] MEDS: METOPROLOL TARTRATE 25 MG TAB PO SCH ×2 (08:15→20:23)
[2017-07-29] MEDS: hydrALAZINE 10 MG TAB PO SCH ×3 (08:15→21:11)
[2017-07-29] MEDS ORDERED: AMIODARONE HCL 200 ML IV ONE (13:14)
[2017-07-29] MEDS ORDERED: AMIODARONE HCL 300 MG in D5W 100 ML IV ONE (13:14)
--- NOTE | 2017-07-29 13:21 | CPEKG ---
Heart Rate: 114 RR Interval: 526 P-R Interval: 130 QRSD Interval: 102 QT Interval: 328 QTC Interval: 452 P [place]: 0 QRS [place]: 64 T Wave [place]: 266 EKG Severity - ABNORMAL ECG - EKG Impression: WANDERING PACEMAKER EKG Impression: REPOL ABNRM SUGGESTS ISCHEMIA, ANT-LAT LEADS Electronically Signed By: Flex Thrasher 31-Jul-2017 23:13:51
--- NOTE | 2017-07-29 13:43 | ASMTCMCOM ---
CM Note CM Note Notes: Spoke with patient's [facility] aids social worker Tara ([phone]) to let her know that patient will likely discharge tomorrow. She will need discharge summary and any home care orders - if home care is needed, [facility] will arrange. Tara also requested that hospitalist call patient's PCP Ester Zamora ([phone]) - Will Garas notified. Current CM Discharge plan: home to [facility] with [facility] Date Signed: 07/29/2017 01:42 PM Electronically Signed By:Kimberly Champagne RN
--- NOTE | 2017-07-29 15:03 | HOSPPROG ---
Hospitalist Progress Note Assessment/Plan: 71 yo M with PMH of vascular dementia/cva as well as CAD s/p CABG admitted with SOB and found to have a flutter as well as acute systolic heart failure # Atrial flutter * Status post cardioversion but has come back into a flutter * Discussed with Cardiology * Will load with amiodarone again and retry cardioversion * May need ablation #Apneic episodes/wheezing/sleep apnea: improved with cpap, will need outpatient sleep study. Complicated by some swallowing abnormalities however not clearly aspiration. #Acutely decompensated systolic heart failure cardiomyopathy: With EF initially 20-25% more recently improved to 30% s/p CV, due to tachy-arrhythmia. BB. Hold TRAVON-E with JAVIER #JAVIER: Due to over diuresis * Will hold further diuretics #Moderate-severe MR: followed by cardiology, no current active issues #Vascular dementia/ h/o CVA x 2: cont home meds including asa, statin, donepezil. Lives at [facility] independently and will need to be sure that they can take him back after dc. # CAD: with hx of CABG #Adrenal adenomas: unchanged #Pulmonary nodule: 1.5cm, repeat CT in 3 months # thrombocytopenia: mild #h/o CVA: statin, ASA #Diet: regular #DVT ppx: Eliquis Subjective: Feels pretty good. Really wants to go home Objective: Vital Signs Temp Pulse Resp BP Pulse Ox 36.6 C 105 H 16 102/82 H 97 07/29/17 11:53 07/29/17 11:53 07/29/17 11:53 07/29/17 11:53 07/29/17 11:53 Laboratory Results 07/28/17 04:01 07/29/17 03:08 07/28/17 07/29/17 07/30/17 05:59 05:59 05:59 Intake Total 1450 1050 540 Balance 1450 1050 540 PT 20.2 SEC (12.0-15.0) H 07/24/17 04:08 INR 1.72 (0.83-1.16) H 07/24/17 04:08 Tele personally interpreted a flutter Discussed with Cardiology - Physical Exam Constitutional: no apparent distress, appears nourished, not in pain Eyes: anicteric sclera, EOMI Ears, Nose, Mouth, Throat: moist mucous membranes, hearing normal, ears appear normal Cardiovascular: tachycardia, other (Mostly regular) Respiratory: no respiratory distress, no rales or rhonchi, clear to auscultation Gastrointestinal: normoactive bowel sounds, soft, non-tender abdomen, no palpable masses Neurologic: AAOx3 Psychiatric: interacting appropriately, not anxious, not encephalopathic, thought process linear ICD10 Worksheet Patient Problems: Problems Problem Status Onset Acute exacerbation of congestive heart failure Acute Atrial flutter Acute Blister of foot without infection Acute Chest pain Acute Coronary artery disease Acute Dementia Acute Encephalopathy acute Acute Postoperative atrial fibrillation Acute S/P CABG x 5 Acute Memory loss due to medical condition Chronic
[2017-07-29] MEDS: MEMANTINE HCL 5 MG TAB PO SCH (20:23)
[2017-07-29] MEDS: ATORVASTATIN CALCIUM 10 MG TAB PO SCH (20:23)
[2017-07-29] MEDS ORDERED: AMIODARONE HCL 540 MG in D5W 300 ML IV ONE (21:00)
[2017-07-29] MEDS: GUAIFENESIN/DM 10 ML UDCUP PO PRN (22:34)
[2017-07-29] MEDS: BENZONATATE 100 MG CAP PO PRN (22:35)
[2017-07-30] MEDS: LORazepam 0.5 MG TAB PO PRN (00:09)
[2017-07-30] MEDS: LEVALBUTEROL 0.63 MG/3 ML DEYVIAL IH SCH ×2 (05:24→11:29)
[2017-07-30] MEDS: IPRATROPIUM BROMIDE 0.5 MG/2.5 ML DEYVIAL IH SCH ×2 (05:24→11:29)
[2017-07-30] MEDS: ASPIRIN EC 81 MG TAB PO SCH (09:40)
[2017-07-30] MEDS: CHOLECALCIFEROL VIT D3 1,000 UNITS TAB PO SCH (09:40)
[2017-07-30] MEDS: APIXABAN 5 MG TAB PO SCH (09:40)
[2017-07-30] MEDS: METOPROLOL TARTRATE 25 MG TAB PO SCH (09:41)
[2017-07-30] MEDS: hydrALAZINE 10 MG TAB PO SCH (09:41)
[2017-07-30] MEDS: ISOSORBIDE DINITRATE 10 MG TAB PO SCH (09:41)
--- NOTE | 2017-07-30 10:29 | ASMTCMCOM ---
CM Note CM Note Notes: 07/30/2017 Case Management Note PT recommending SNF rehab. Informed Tara at [facility]. Tara arranged phone call with director of program and Dr. Zamora. All disagreed with assessment of pt by team members and [facility] team recommendations. [facility] refused SNF placement. Case Management expressed concerns over safety of pt when unsupervised and alerted [facility] to inappropriate behaviors here at the hospital indicating that pt is incapable of living independently. Case Management requested 24 hour supervision of pt. [facility] program unable to offer supervision services during the overnight hours. [facility] program stated that pt behaviours were changing d/t marijuana withdrawal and that pt would improve once he returns home to his independent living and resumes his marijuana use. Requested [facility] program member come to hospital to evaluate, [facility] refused and stated that an assessment would happen at their facility after discharge. Case Management spoke with son to discuss concerns with discharge and son requested an MD call him before he agreed to d/c of pt from hospital. Alerted RN. Case Management d/c poc: D/C to [facility] program. Case management is unable to arrange necessary levels of supervision independent of the [facility] program. Date Signed: 07/30/2017 10:28 AM Electronically Signed By:Anita Lombardi RN
[2017-07-30 11:28] VITALS: BP 130/92; O2SAT 96
[2017-07-30 11:34] VITALS: PULSE 50; RESP 28; TEMP 96.3
--- NOTE | 2017-07-30 13:41 | PDCARPN ---
Cardiology Progress Note Chief Complaint: Atrial Fibrillation Assessment/Plan: Assessment: 1. Coronary artery disease status post CABG 2. History of stroke and dementia 3. Hypertension 4. Mitral regurgitation 5. Atrial flutter with rapid conduction to the ventricles. Converted to SR 6. Sleep apnea/respiratory distress. Improved with CPAP 7. Rising creatinine. Procedures 07/25/2017: JENNY/Cardioversion. Pharm CV on Amioderone load 07/29/17. Last seen 07/26/[address] Javed. 07/30/17 Seen to coordinate care at time of discharge. He will be discharged back to [facility] with Day Care. His Son will arrange to stay with him overnight , and determine care needs and arrange with Diana. [facility] Intermediate Card Tender has talked to Diana several times with concern about his ability to take his medications, and care for himself on his own during the night. They gave assurrance they will ensure SAFE care for him. They may need to consider getting him into the [facility]. Successful cardioversion 07/25/17 with improvement seen in systolic function by echocardiogram. Patient is on good medical therapy for cardiomyopathy. Discharge medications include: Lisinopril, Lipitor, Eliquis, and Will discharge on Amiodarone 400 BID. In one week he will be seen in Clinic and will plan to add back Coreg 3.125 mg BID. Due to HR 55 will delay adding the BB today. Plan: Follow up Visit at [facility] 08/07/17. Restart Coreg at that time. Reduce Amiodarone dose. Coordinated DC care with Dr Javed for Cardiomyopathy management on Coreg to help improve heart muscle. Also Coordinated with AUGUST Vallejo plan for possible Ablation once his heart muscle has strengthened to improve likely scott of successful Ablation. Will set up appointment with Dr Cervantes once Echo shows EF improvement. Reviewed/Discussed With: family, hospitalist, multidisciplinary team (Dr Duncan Javed-[facility], Dr Gwyn Cervantes-[facility]), other ([facility] Intermediate Card Tender, Diana) Time Spent With Patient: 60 minutes Objective: Vital Signs (8 Hrs) Temp Pulse Resp BP Pulse Ox 07/30/17 11:31 35.7 C L 50 L 28 H 96 07/30/17 11:25 35.8 C L 53 L 14 130/92 H 96 07/30/17 09:41 63 112/93 H 07/30/17 07:48 36.9 C 56 L 20 102/77 92 07/30/17 05:25 20 98 Intake/Output (24 Hrs) 07/29/17 07/30/17 07/31/17 05:59 05:59 05:59 Intake Total 1050 2060 Balance 1050 2060 Intake: Oral (ml) 1050 1540 IV Infused (ml) 520 Amiodarone HCl 200 ml @ 270 33.333 mls/hr IV ONCE ONE Rx#:[id number] Amiodarone HCl 300 mg In 250 D5w 100 ml @ 318 mls/hr IV ONCE ONE Rx#: [id number] Other: Weight 89.5 kg 91.4 kg Intake Quantity Yes Sufficient Output Comment Urinal I&O not ordered Number of Voids Toilet 2 2 Urinal 4 3 Number of Stools Toilet 1 Result Diagrams: 07/28/17 04:01 07/30/17 03:15 - Physical Exam Constitutional: no apparent distress Cardiovascular: regular rate and rhythm, no rubs, no gallops, systolic murmur, No no murmurs (II/) Respiratory: clear to auscultate bilat, no crackles, no wheezes Skin: warm, no edema Neurologic: other (dementia related altered Memory) Psychiatric: cooperative, interactive ICD10 Worksheet Patient Problems: Problems Problem Status Onset Chest pain Acute Coronary artery disease Acute S/P CABG x 5 Acute Postoperative atrial fibrillation Acute Memory loss due to medical condition Chronic Encephalopathy acute Acute Dementia Acute Blister of foot without infection Acute Atrial flutter Acute Acute exacerbation of congestive heart failure Acute
--- NOTE | 2017-07-30 14:25 | ASDISCHSUM ---
Discharge Information Plan Status:Home with Home Health Medically Cleared to Leave:07/29/2017 Discharge Date:07/30/2017 02:07 PM D/C Disposition:Home Health Service [facility] D/C Disposition:Home, Routine, Self-Care Projected Discharge Date:07/30/2017 02:07 PM Transportation at D/C:Family Discharge Delay Reason: Follow-Up Date:07/30/2017 02:07 PM Discharge Slot: Final Diagnosis: Placement Information Patient Contact Information Contact Name:AMBROCIO Relationship:Shaan Address: City: [facility] Phone: [facility]/Zip Code: Email: Financial Information Financial Class:HMO and PPO Plans Primary Plan Desc:[facility] Primary Plan Number:[id number] Secondary Plan Desc: Secondary Plan Number: Assessment Information [facility] CM Progress Note CM Note CM Note Notes: Pt admitted with atrial flutter. Cardiology evaluation in process. Hx CAD, advanced vascular dementia 2/2 CVA. Lives at [facility]. Of note, there was an episode of wandering at related to THC intoxication in 10/2016. Son Sonu Boateng is [facility] [phone]. Pt is a poor historian. He has been to [facility] in the past. CM will follow for any d/c needs. Date Signed: 07/21/2017 02:54 PM Electronically Signed By:TOY Weller [facility] CM Progress Note CM Note CM Note Notes: 07/22/2017 Case Management Note Received call from Tara Lorenzo social group worker with the [facility] program [phone]. Met w/pt and son Sonu. Discussed concerns re: pt safety living at home alone. Sonu has plans to renovate his basement for pt to move into over the next 6 months. Other son is living in [place] at this time. Sonu has explored Assisted living facilties but has found that pts daily marijuana use has prevented acceptance at all Assisted Living facilities. Sara Guerrero [phone] checks on pt regularly, however pt is without regular monitoring or supervision. Sonu reports that pt is able to manage his meds twice daily without difficulty. Sara Guerrero assists with some meals. Sonu acknowledged need for increased support for pt but is trying to balance increasing needs with pt desire to remain independent and to coontinue use of marijuana. Referred Sonu for Spiritual Care Consult. Please see notes. Spoke with Tara at [facility]. Pt can obtain outpt therapy at [facility] on [address]. [facility] also has Home Care but pt has refused in the past. Pt unwilling to attend day memory program today but did agree to limited PT visits if required. Pt and Sonu refused hiring unskilled caregivers for supervision. Taar felt pt was near baseline and able to function as previous to admission. Case Management requested on site visit for [facility] to evaluate. Tara was to share hospital notes with Director Of Regulatory Affairs of [facility]. Case Management d/c poc: increase services available through [facility] [employer] program if pt agreeable. Continue to provide support for Sonu in the decision making process during hospitalization. Case Management to follow. Date Signed: 07/22/2017 03:32 PM Electronically Signed By:Anita Lombardi RN [facility] Progress Note CM Note CM Note Notes: 07/23/2017 Case Management Note Phone call from Tara Lorenzo from the [facility] [employer] program [phone] requesting updates. Faxed recent notes. Case Management poc: largely dictated by [facility] [employer] program. Will continue to fax updates as requested by Tara Lorenzo. Case Management to follow. Date Signed: 07/23/2017 11:30 AM Electronically Signed By:Anita Lombardi RN [facility] CM Progress Note CM Note CM Note Notes: Phone call from Tara Lorenzo from the [facility] Program. Tara requested updates. CM sent updated notes. CM to follow. Plan: largely dictated by [facility] Program Date Signed: 07/25/2017 04:31 PM Electronically Signed By:JESSA Agustin [facility] CM Progress Note CM Note CM Note Notes: Tara with the [employer] program called for updates, which were provided. Tara would like for all calls over the weekend to go to [phone]. CM following. Date Signed: 07/26/2017 03:39 PM Electronically Signed By:Opal Buitrago LCSW [facility] CM Progress Note CM Note CM Note Notes: Spoke with patient's [facility] [employer] social group worker Tara ([phone]) to let her know that patient will likely discharge tomorrow. She will need discharge summary and any home care orders - if home care is needed, [facility] will arrange. Tara also requested that hospitalist call patient's PCP Ester Zamora ([phone]) - Will Garas notified. Current CM Discharge plan: home to [facility] with [facility] Date Signed: 07/29/2017 01:42 PM Electronically Signed By:Kimberly Champagne RN [facility] CM Progress Note CM Note CM Note Notes: 07/30/2017 Case Management Note PT recommending SNF rehab. Informed Tara at [facility]. Tara arranged phone call with director of program and Dr. Zamora. All disagreed with assessment of pt by team members and [facility] team recommendations. [place] refused SNF placement. Case Management expressed concerns over safety of pt when unsupervised and alerted [facility] to inappropriate behaviors here at the hospital indicating that pt is incapable of living independently. Case Management requested 24 hour supervision of pt. [facility] program unable to offer supervision services during the overnight hours. [facility] program stated that pt behaviours were changing d/t marijuana withdrawal and that pt would improve once he returns home to his independent living and resumes his marijuana use. Requested [facility] program member come to hospital to evaluate, [facility] refused and stated that an assessment would happen at their facility after discharge. Case Management spoke with son to discuss concerns with discharge and son requested an MD call him before he agreed to d/c of pt from hospital. Alerted RN. Case Management d/c poc: D/C to [facility] program. Case management is unable to arrange necessary levels of supervision independent of the [facility] program. Date Signed: 07/30/2017 10:28 AM Electronically Signed By:Anita Lombardi RN Case Management Discharge Plan Note Case Management Discharge Discharge Order Complete? Answers: Yes Patient to Obtain Answers: Other Notes: [facility] Medications Transportation Arranged Answers: Family/Friends Faxed Final Orders Answers: Yes Notes: [facility]cert to [facility] [employer] at [phone] Agency/Facility Transfer Answers: Yes Report Printed & Faxed to Receiving Agency Family Notified Answers: Yes Notes: Sonu in room Discharge Comments Notes: Sonu transported pt to [facility] and was arranging to reconnect with Miguel AngelVaniajanneth tomorrow. Date Signed: 07/30/2017 02:24 PM Electronically Signed By:Anita Lombardi RN Intervention Information Intervention Type:*Incorrect Registration Date of Service:07/20/2017 09:29 PM Patient Type:Inpatient Staff Member:TAMIA Plasencia, Mery Hours:0.25 Discipline: Severity:1 (0-1 Hours) Comment:Registered observation, written admit order inpatient status.
== END 2017-07-30 14:07 | disposition home health service (06) | DRG 308 ==
LOC: OBSVTOIN 21:29 → F2W 22:13 → F2N 07-25 14:02 → F2W 07-27 03:53
PROVIDERS: ADMIT Internal Medicine; ATTEND Internal Medicine
PROC: B246ZZ4 Ultrasonography of Right and Left Heart, Transesophageal (ICD-10-PCS; principal; 2017-07-25)
PROC: 5A2204Z Restoration of Cardiac Rhythm, Single (ICD-10-PCS; principal; 2017-07-25)
DX: I48.92 Unspecified atrial flutter (principal); I11.0 Hypertensive heart disease with heart failure; I50.21 Acute systolic (congestive) heart failure; N17.9 Acute kidney failure, unspecified; I34.0 Nonrheumatic mitral (valve) insufficiency; F03.90 Unspecified dementia, unspecified severity, without behavioral disturbance, psychotic disturbance, mood disturbance, and anxiety; D35.00 Benign neoplasm of unspecified adrenal gland; R91.1 Solitary pulmonary nodule; I25.10 Atherosclerotic heart disease of native coronary artery without angina pectoris; I69.920 Aphasia following unspecified cerebrovascular disease; F12.90 Cannabis use, unspecified, uncomplicated; Z95.5 Presence of coronary angioplasty implant and graft; Z95.1 Presence of aortocoronary bypass graft; Z96.641 Presence of right artificial hip joint
CPT/HCPCS: 80307; 92523-GN; 92526-GN; 92610-GN; 92611-GN; 96365; 97110-GP; 97116-GP; 97161-GP; 97166-GO; 97530-GP; 97535-GO; G0480; G8978-GP-CI; G8979-GP-CI; G8987-GO-CJ; G8988-GO-CI; G8989-GO-CI; G8996-GN-CJ; G8997-GN-CI; G9168-GN-CK; G9169-GN-CK; G9170-GN-CK; J0153; J0282; J1940; J2370; J2704; J2930; P9047

== ENCOUNTER 2017-09-13 10:05 | Emergency (ER) | payer OTHER ==
--- NOTE | 2017-09-13 10:41 | CPEKG ---
Heart Rate: 50 RR Interval: 1200 P-R Interval: 164 QRSD Interval: 110 QT Interval: 484 QTC Interval: 442 P [place]: 50 QRS [place]: 46 T Wave [place]: 67 EKG Severity - ABNORMAL ECG - EKG Impression: SINUS RHYTHM EKG Impression: NONSPECIFIC INTRAVENTRICULAR CONDUCTION DELAY EKG Impression: BORDERLINE ST DEPRESSION, ANTERIOR LEADS Electronically Signed By: Osiris Pham 13-Sep-2017 14:32:11
[2017-09-13 10:53] LABS: PLATELET COUNT 166 10^3/uL (150-400)
--- NOTE | 2017-09-13 11:15 | EDPHY ---
H & P Time Seen by Provider: 09/13/17 10:20 HPI/ROS: CHIEF COMPLAINT: Left-sided back pain HISTORY OF PRESENT ILLNESS: 71-year-old male with dementia presents with left- sided back pain. Onset of left-sided back pain a few weeks ago. The pain is persistent and worsens with movement and deep inspiration. The pain became worse over the last couple of days. No known falls recently, though he has had several falls in the past. He is on Eliquis. REVIEW OF SYSTEMS: Constitutional: No fever, no chills Eyes: No visual changes ENT: No sore throat Respiratory: No cough, no shortness of breath Cardiac: No anterior chest pain Gastrointestinal: no vomiting, no abdominal pain Genitourinary: No hematuria, no dysuria Musculoskeletal: No leg pain or swelling Skin: No rash Neurological: No headache, no weakness Psychiatric: No depression Past Medical/Surgical History: Dementia CABG Social History: Lives alone in own apartment, has a neighbor who cares for him Smoking Status: Never smoked Physical Exam: General Appearance: Alert, pleasant, appears in pain with change of position Eyes: Pupils equal and round, no conjunctival pallor ENT, Mouth: Mucous membranes moist Neck: Normal inspection Respiratory: No anterior chest wall tenderness Lungs are clear to auscultation Cardiovascular: Regular rate and rhythm Gastrointestinal: Abdomen is soft and nontender Back: Linear area of ecchymosis over the left lateral thoracic area Neurological: Alert, oriented x3, cranial nerves II through XII intact, motor 5 /5, sensory intact to light touch, normal gait Skin: Warm and dry Extremities: Normal inspection Psychiatric: Mood and affect normal Constitutional: Initial Vital Signs Temperature (C) 36.3 C 09/13/17 10:11 Heart Rate 57 L 09/13/17 10:11 Respiratory Rate 18 09/13/17 10:11 Blood Pressure 160/105 H 09/13/17 10:11 O2 Sat (%) 95 09/13/17 10:11 O2 Delivery Mode Room Air Allergies/Adverse Reactions: No Known Allergies Allergy (Verified 09/13/17 10:09) Home Medications: Medication Instructions Recorded Aspirin EC [Aspirin EC 81 mg (*)] 81 mg PO DAILY #30 tab 04/07/15 Nitroglycerin [Nitrostat 0.4 mg 0.4 mg SL PRN PRN #1 btl 04/07/15 (*)] Memantine HCl [Namenda 5 mg (*)] 5 mg PO HS 11/19/16 Atorvastatin Calcium [Lipitor 20 10 mg PO HS 07/20/17 mg (*)] Cholecalciferol Vit D3 [Vitamin D3 1,000 units PO DAILY 07/20/17 (*)] Amiodarone HCl 400 mg PO BID #30 tablet 07/30/17 Apixaban [Eliquis] 5 mg PO BID #60 tab 07/30/17 Carvedilol 09/13/17 Hydrocodone/APAP 5/325 [Todd 1 - 2 tab PO Q4H PRN #15 tab 09/13/17 5/325 (*)] Lasix 09/13/17 Lidocaine 5% [Lidoderm 5% Patch 1 ea TD DAILY #10 patch 09/13/17 (*)] Medical Decision Making - Diagnostics EKG Interpretation: EKG interpreted by me reveals sinus rhythm, rate 50, slight ST segment depression in leads the to through V4, similar in appearance to EKG dated 2016. Imaging Results: Imaging Impressions Chest X-Ray 09/13/17 10:21 Impression: 1. Interval resolution of bilateral pulmonary edema pattern without evidence of new consolidation. Chest x-ray independently reviewed by me reveals a left lower rib fracture, no pneumothorax. ED Course/Re-evaluation: This patient presents with ecchymosis of the left back, consistent with a fall. Chest x-ray reveals a left-sided rib fracture, without pneumothorax. The time frame of the fall and resultant rib fracture is unclear, given that the patient has dementia. He would like to go home and his neighbor agrees and feels that he is safe to go home. He will take Tylenol for pain and Vicodin as needed if the pain is severe. He will use an incentive spirometer. Warning signs discussed. No evidence of additional injuries. In particular, there is no evidence of head injury or intra-abdominal injury. Elevated D-dimer is noted. This is most likely secondary to the ecchymosis. I do not suspect this patient has a pulmonary embolism, given that he has atypical symptoms, a clear rib fracture and he is on Eliquis. Differential Diagnosis: Differential diagnosis for trauma includes though it is not limited to fracture , intracranial hemorrhage, pneumothorax, hemothorax, intra-abdominal hemorrhage. - Data Points Laboratory Results: Laboratory Results 09/13/17 10:45 09/13/17 10:45 09/13/17 09/13/17 09/13/17 10:45 10:45 10:45 WBC 8.48 10^3/uL 10^3/uL (3.80-9.50) RBC 5.20 10^6/uL 10^6/uL (4.40-6.38) Hgb 16.6 g/dL g/dL (13.7-17.5) Hct 48.3 % % (40.0-51.0) MCV 92.9 fL fL (81.5-99.8) MCH 31.9 pg pg (27.9-34.1) MCHC 34.4 g/dL g/dL (32.4-36.7) RDW 13.8 % % (11.5-15.2) Plt Count 166 10^3/uL 10^3/uL (150-400) MPV 12.1 fL H fL (8.7-11.7) Neut % (Auto) 69.5 % % (39.3-74.2) Lymph % (Auto) 17.1 % % (15.0-45.0) Atkinson % (Auto) 11.1 % % (4.5-13.0) Eos % (Auto) 1.1 % % (0.6-7.6) Baso % (Auto) 0.8 % % (0.3-1.7) Nucleat RBC Rel Count 0.0 % % (0.0-0.2) Absolute Neuts (auto) 5.90 10^3/uL 10^3/uL (1.70-6.50) Absolute Lymphs (auto) 1.45 10^3/uL 10^3/uL (1.00-3.00) Absolute Monos (auto) 0.94 10^3/uL H 10^3/uL (0.30-0.80) Absolute Eos (auto) 0.09 10^3/uL 10^3/uL (0.03-0.40) Absolute Basos (auto) 0.07 10^3/uL 10^3/uL (0.02-0.10) Absolute Nucleated RBC 0.00 10^3/uL 10^3/uL (0-0.01) Immature Gran % 0.4 % % (0.0-1.1) Immature Gran # 0.03 10^3/uL 10^3/uL (0.00-0.10) D-Dimer 1.01 ug/mLFEU H ug/mLFEU (0.00-0.50) Sodium 145 mEq/L mEq/L (135-145) Potassium 3.9 mEq/L mEq/L (3.5-5.2) Chloride 99 mEq/L mEq/L (97-110) Carbon Dioxide 29 mEq/l mEq/l (22-31) Anion Gap 17 mEq/L H mEq/L (8-16) BUN 31 mg/dL H mg/dL (7-23) Creatinine 1.3 mg/dL mg/dL (0.7-1.3) Estimated GFR 54 Glucose 116 mg/dL H mg/dL (70-100) Calcium 9.7 mg/dL mg/dL (8.5-10.4) Troponin I < 0.012 ng/mL ng/mL (0.000-0.034) NT-Pro-B Natriuret Pep 786 pg/mL H pg/mL (0-125) Medications Given: Discontinued Medications Acetaminophen (Tylenol) 650 mg PO EDNOW ONE Stop: 09/13/17 11:20 Last Admin: 09/13/17 11:36 Dose: 650 mg Lidocaine (Lidoderm 5%) 1 ea TD EDNOW ONE Stop: 09/13/17 11:20 Last Admin: 09/13/17 11:37 Dose: 1 ea Departure - Departure Disposition: Home, Routine, Self-Care Clinical Impression: Left rib fracture Qualifiers: Encounter type: initial encounter Rib fracture type: single rib Fracture type: closed Qualified Code(s): S22.32XA - Fracture of one rib, left side, initial encounter for closed fracture Condition: Good Instructions: Rib Fracture (ED) Additional Instructions: Take Tylenol every 4 hr as needed for pain. I have also written a prescription for Lortab for severe pain. Please do not take Lortab and Tylenol at the same time, as they both contain Tylenol. Using incentive spirometer every 3-4 hours while awake as instructed. Referrals: Ester Zamora MD [Primary Care Provider] - As per Instructions Prescriptions: Hydrocodone/APAP 5/325 [Todd 5/325 (*)] 1 - 2 tab PO Q4H PRN #15 tab PRN Reason: Pain, Moderate Lidocaine 5% [Lidoderm 5% Patch (*)] 1 ea TD DAILY #10 patch
[2017-09-13] MEDS ORDERED: LIDOCAINE 5% 1 EA PATCH TD ONE (11:19)
[2017-09-13] MEDS ORDERED: ACETAMINOPHEN 325 MG TAB PO ONE (11:19)
[2017-09-13 13:28] VITALS: BP 156/102; PULSE 50; RESP 16; TEMP 97.9; O2SAT 96
[2017-09-13] MEDS ORDERED: PATCH REMOVAL 1 EA PATCH TD SCH (21:00)
== END 2017-09-13 13:46 | disposition home or self-care (01) ==
DX: S22.32XA Fracture of one rib, left side, initial encounter for closed fracture (principal); Z79.01 Long term (current) use of anticoagulants; Z95.1 Presence of aortocoronary bypass graft; Z79.82 Long term (current) use of aspirin; X58.XXXA Exposure to other specified factors, initial encounter

== ENCOUNTER 2017-12-20 13:19 | Emergency (ER) | payer OTHER ==
--- NOTE | 2017-12-20 13:15 | EDPHY ---
H & P Time Seen by Provider: 12/20/17 13:19 Constitutional: Initial Vital Signs Heart Rate 50 L 12/20/17 13:25 Respiratory Rate 20 12/20/17 13:25 Blood Pressure 164/140 H 12/20/17 13:25 O2 Sat (%) 94 12/20/17 13:25 O2 Delivery Mode Room Air Allergies/Adverse Reactions: No Known Allergies Allergy (Verified 09/13/17 10:09) Home Medications: Medication Instructions Recorded Aspirin EC [Aspirin EC 81 mg (*)] 81 mg PO DAILY #30 tab 04/07/15 Nitroglycerin [Nitrostat 0.4 mg 0.4 mg SL PRN PRN #1 btl 04/07/15 (*)] Memantine HCl [Namenda 5 mg (*)] 5 mg PO HS 11/19/16 Atorvastatin Calcium [Lipitor 20 10 mg PO HS 07/20/17 mg (*)] Cholecalciferol Vit D3 [Vitamin D3 1,000 units PO DAILY 07/20/17 (*)] Amiodarone HCl 400 mg PO BID #30 tablet 07/30/17 Apixaban [Eliquis] 5 mg PO BID #60 tab 07/30/17 Carvedilol 09/13/17 Hydrocodone/APAP 5/325 [Marbury 1 - 2 tab PO Q4H PRN #15 tab 09/13/17 5/325 (*)] Lasix 09/13/17 Lidocaine 5% [Lidoderm 5% Patch 1 ea TD DAILY #10 patch 09/13/17 (*)] Medical Decision Making - Diagnostics Imaging Results: Imaging Impressions Head CT 12/20/17 13:24 Impression: 1. Stable mild to moderate atrophy. 2. No hemorrhage, mass effect, or definite acute peripheral infarct. 3. Stable mild nonspecific hypodensities in the white matter of bilateral cerebral hemispheres. Differential diagnosis includes microvascular ischemic disease, post-infectious/post-inflammatory sequela, atypical demyelinating disease, or migraine-related sequela. Small white matter lacunar infarcts may also have this appearance. 4. Stable remote lacunar infarcts involving anterior left thalamus and Wernicke' s area left posterior sylvian fissure. Findings discussed with Maikel Gipson MD at 14:35 hour, 12/20/2017. If symptoms worsen, additional imaging may be necessary. Head CTA 12/20/17 13:24 Impression: 1. Minimal calcified plaque at the carotid bulb bilaterally without encroachment upon the lumen. 2. Normal CT angiogram of the [place] with normal variation, as detailed above. Note: All calculations were performed using NASCET criteria. Findings discussed with Maikel Gipson MD at 14:40 hour, 12/20/2017. Neck CTA 12/20/17 13:24 Impression: 1. Minimal calcified plaque at the carotid bulb bilaterally without encroachment upon the lumen. 2. Normal CT angiogram of the [place] with normal variation, as detailed above. Note: All calculations were performed using NASCET criteria. Findings discussed with Maikel Gipson MD at 14:40 hour, 12/20/2017. Imaging: Discussed imaging studies w/ will call clerk Radiologist, I viewed and interpreted images myself ED Course/Re-evaluation: CHIEF COMPLAINT: Altered mental status HISTORY OF PRESENT ILLNESS: The patient is an 82 y/o male with a history of dementia, CVA, CABG, and a- flutter arriving emergently via EMS with altered mental status, unsure time of onset. Per EMS, the patient was found wandering around on the campus and stated that he lived there. He then stated that he didn't know why he was on the campus and began to stutter his words. While en route to the emergency department his BGL was 112 and EMS noticed that the patient was incontinent. Upon arriving to the ED, the patient stated that he believes he is talking normally but believes his memory is worse than normal today. He endorses a history of TIA and stroke, but is unsure about his cardiac history although he has a scar on his chest. Upon reviewing old medical records, the patient has a history of a CABG and a-flutter. He is supposed to be anticoagulated on Eliquis , but it is unsure if he has been taking his prescriptions. Prior medical records reviewed including discharge summary on 07/30/17. REVIEW OF SYSTEMS: Unable to obtain due to patient's altered mental status. PHYSICAL EXAM: HR, BP, O2 Sat, RR. Temp noted General Appearance: Non-toxic appearing. Head: Atraumatic without scalp tenderness or obvious injury Eyes: Pupils equal, round, reactive to light and accommodation, EOMI, no trauma , no injection. Ears: Clear bilaterally, no perforation, normal landmarks Nose: Atraumatic, no rhinorrhea, clear. Throat: There is no erythema or exudates, no lesions, normal tonsils, mucus membranes moist. Neck: Supple, nontender, no lymphadenopathy. Respiratory: No retractions, no distress, no wheezes, and no accessory muscle use. Lungs are clear to auscultation bilaterally. Cardiovascular: Regular rate and rhythm, no murmurs, rubs, or gallops. Good capillary refill all extremities. Gastrointestinal: Abdomen is soft, nontender, non-distended, no masses, no rebound, no guarding, no peritoneal signs. Musculoskeletal: Normal active ROM of all extremities, atraumatic. Neurological: Dysarthric speech and difficulty with word finding. No pronator drift and normal [id number]. The patient has normal DTRs and non-focal cranial nerves, motor, sensory, and cerebellar exam. Skin: No rashes, good turgor, no nodules on palpation. Past medical history: Dementia, flutter, CVA, CAD, CHF Past surgical history: CABG Family history: Denies Social history: Resides at [facility], retired, DIAGNOSTICS/PROCEDURES/CRITICAL CARE TIME: The 12 lead EKG was interpreted by myself as sinus rhythm with a rate of 51 and borderline nonspecific intraventricular conduction delay. See hard copy and/or "tracemaster" electronic copy for interpretation. This EKG is similar to EKG on 09/13/17. Head CT w/o contrast: No acute findings Angio Head CT: No acute findings Angio Neck CT: No acute findings Critical care time spent by me, Dr. Gipson, exclusively with this patient was 45 minutes, exclusive of PA time and exclusive of procedures. The organ system at risk was neurovascular and I gave IVF and had imaging studies preformed to prevent worsening of the patients condition. DIFFERENTIAL DIAGNOSIS: The differential diagnosis for the patient's altered mental status included but was not limited to hypoglycemia, infectious process, electrolyte abnormality, head injury, neurologic process, anemia, cardiac process, and intoxicants. MEDICAL DECISION MAKING: The patient is an 82 y/o male with a history of a dementia, CVA, CABG, and a- flutter arriving emergently via EMS with altered mental status, unsure time of onset. The patient is supposed to be on Eliquis, but it is unsure if he is taking this as prescribed. On exam he is having difficulty with word finding and has dysarthric speech. He does not meet stroke alert criteria. Labs, EKG, head CT w/o contrast, angio head CT, and angio neck CT ordered. 1L IV NS administered. 1319: I met EMS upon arrival. 1328: Patient had an episode of diaphoresis and pallor with a blank stare. When he came to, the patient became aggressive. 1332: Patient has become disoriented again and is bradycardic. 1334: The 12 lead EKG was interpreted by myself as sinus rhythm with a rate of 51 and borderline nonspecific intraventricular conduction delay. This is similar to EKG on 09/12/18. 1342: Son states that the patient has a history of dementia and has had heavy marijuana use in the last week. 1420: Consulted with Dr. Ester Zamora, patient's PCP, regarding this patient. She has witnessed several of similar episodes like today. She agrees with my treatment plan. Patient will see Dr. Zamora and will not be admitted. She will call to arrange transport to her clinic. 1439: Spoke with Dr. Metz, radiologist, there are no acute findings on imaging studies. Patient is safe to be sent to Dr. Zamora's clinic. - Data Points Laboratory Results: Laboratory Results 12/20/17 13:40 12/20/17 13:40 12/20/17 12/20/17 12/20/17 14:32 13:44 13:40 WBC RBC Hgb POC Hgb 16.0 gm/dL gm/dL (13.7-17.5) Hct POC Hct 47 % % (40-51) MCV MCH MCHC RDW Plt Count MPV Neut % (Auto) Lymph % (Auto) Barry % (Auto) Eos % (Auto) Baso % (Auto) Nucleat RBC Rel Count Absolute Neuts (auto) Absolute Lymphs (auto) Absolute Monos (auto) Absolute Eos (auto) Absolute Basos (auto) Absolute Nucleated RBC Immature Gran % Immature Gran # PT INR APTT POC Sodium 145 mEq/L mEq/L (135-145) Sodium 146 mEq/L H mEq/L (135-145) POC Potassium 3.7 mEq/L mEq/L (3.3-5.0) Potassium 4.1 mEq/L mEq/L (3.5-5.2) POC Chloride 103 mEq/L mEq/L (97-110) Chloride 103 mEq/L mEq/L (97-110) Carbon Dioxide 24 mEq/l mEq/l (22-31) Anion Gap 19 mEq/L H mEq/L (8-16) POC BUN 27 mg/dL H mg/dL (7-23) BUN 26 mg/dL H mg/dL (7-23) Creatinine 1.3 mg/dL mg/dL (0.7-1.3) POC Creatinine 1.3 mg/dL mg/dL (0.7-1.3) Estimated GFR 54 Glucose 126 mg/dL H mg/dL (70-100) POC Glucose 134 mg/dL H mg/dL (70-100) Calcium 9.3 mg/dL mg/dL (8.5-10.4) Troponin I < 0.012 ng/mL ng/mL (0.000-0.034) Urine Opiates Screen Pending Urine Barbiturates Pending Ur Phencyclidine Scrn Pending Ur Amphetamine Screen Pending U Benzodiazepines Scrn Pending Urine Cocaine Screen Pending U Marijuana (THC) Screen Pending 12/20/17 12/20/17 13:40 13:40 WBC 11.61 10^3/uL H 10^3/uL (3.80-9.50) RBC 4.93 10^6/uL 10^6/uL (4.40-6.38) Hgb 15.9 g/dL g/dL (13.7-17.5) POC Hgb Hct 46.9 % % (40.0-51.0) POC Hct MCV 95.1 fL fL (81.5-99.8) MCH 32.3 pg pg (27.9-34.1) MCHC 33.9 g/dL g/dL (32.4-36.7) RDW 12.6 % % (11.5-15.2) Plt Count 143 10^3/uL L 10^3/uL (150-400) MPV 12.2 fL H fL (8.7-11.7) Neut % (Auto) 71.1 % % (39.3-74.2) Lymph % (Auto) 19.0 % % (15.0-45.0) Barry % (Auto) 7.9 % % (4.5-13.0) Eos % (Auto) 0.8 % % (0.6-7.6) Baso % (Auto) 0.9 % % (0.3-1.7) Nucleat RBC Rel Count 0.0 % % (0.0-0.2) Absolute Neuts (auto) 8.25 10^3/uL H 10^3/uL (1.70-6.50) Absolute Lymphs (auto) 2.21 10^3/uL 10^3/uL (1.00-3.00) Absolute Monos (auto) 0.92 10^3/uL H 10^3/uL (0.30-0.80) Absolute Eos (auto) 0.09 10^3/uL 10^3/uL (0.03-0.40) Absolute Basos (auto) 0.10 10^3/uL 10^3/uL (0.02-0.10) Absolute Nucleated RBC 0.00 10^3/uL 10^3/uL (0-0.01) Immature Gran % 0.3 % % (0.0-1.1) Immature Gran # 0.04 10^3/uL 10^3/uL (0.00-0.10) PT 14.1 SEC SEC (12.0-15.0) INR 1.07 (0.83-1.16) APTT 32.1 SEC SEC (23.0-38.0) POC Sodium Sodium POC Potassium Potassium POC Chloride Chloride Carbon Dioxide Anion Gap POC BUN BUN Creatinine POC Creatinine Estimated GFR Glucose POC Glucose Calcium Troponin I Urine Opiates Screen Urine Barbiturates Ur Phencyclidine Scrn Ur Amphetamine Screen U Benzodiazepines Scrn Urine Cocaine Screen U Marijuana (THC) Screen Medications Given: Sodium Chloride (Ns) 1,000 mls @ 500 mls/hr IV EDNOW ONE PRN Reason: Protocol Stop: 12/20/17 15:22 Last Admin: 12/20/17 13:54 Dose: 1,000 mls Point of Care Test Results: 12/20/17 13:44 POC Sodium 145 POC Potassium 3.7 POC Chloride 103 POC BUN 27 H POC Creatinine 1.3 POC Glucose 134 H Departure - Departure Disposition: Home, Routine, Self-Care Clinical Impression: Bradycardia Altered mental status Qualifiers: Altered mental status type: disorientation Qualified Code(s): R41.0 - Disorientation, unspecified Condition: Good Instructions: Bradycardia (ED), Altered Mental Status (ED) Additional Instructions: 1. Follow up with Dr. Zamora. 2. Return to the Emergency Department for severe headache, vomiting, vision changes, confusion, fever or other concerns. Referrals: Ester Zamora MD [Medical Doctor] - As per Instructions Report Scribed for: Maikel Gipson Report Scribed by: Beverly Gudino Date of Report: 12/20/17 Time of Report: 13:15
--- NOTE | 2017-12-20 13:36 | CPEKG ---
Heart Rate: 51 RR Interval: 1176 P-R Interval: 184 QRSD Interval: 118 QT Interval: 520 QTC Interval: 480 P Pelzer: 76 QRS Pelzer: 69 T Wave Pelzer: 93 EKG Severity - ABNORMAL ECG - EKG Impression: SINUS RHYTHM EKG Impression: NONSPECIFIC INTRAVENTRICULAR CONDUCTION DELAY EKG Impression: NONSPECIFIC ST DEPRESSION, ANTERIOR LEADS Electronically Signed By: Gwyn Cervantes 21-Dec-2017 19:13:12
[2017-12-20] MEDS ORDERED: IOPAMIDOL (ISOVUE 370) 100 ML BTL IV ONE (13:48)
[2017-12-20 13:51] LABS: PLATELET COUNT 143 10^3/uL (150-400)
[2017-12-20] MEDS: NS 1,000 ML IV ONE (13:54)
[2017-12-20 14:02] LABS: INR 1.07 (0.83-1.16); PROTIME(PATIENT) 14.1 SEC (12.0-15.0)
[2017-12-20 15:18] VITALS: BP 168/92
== END 2017-12-20 15:19 | disposition home or self-care (01) ==
LOC: EDUNIT#
DX: R41.0 Disorientation, unspecified (principal); R00.1 Bradycardia, unspecified; E86.9 Volume depletion, unspecified; I25.810 Atherosclerosis of coronary artery bypass graft(s) without angina pectoris; I50.9 Heart failure, unspecified; Z79.01 Long term (current) use of anticoagulants; Z86.73 Personal history of transient ischemic attack (TIA), and cerebral infarction without residual deficits; Z79.82 Long term (current) use of aspirin
CPT/HCPCS: 80305; 82947-QW; Q9967

== ENCOUNTER 2018-02-21 17:44 | Observation (INO) | payer OTHER ==
[2018-02-21] MEDS ORDERED: ACETAMINOPHEN 325 MG TAB PO PRN (22:22)
[2018-02-21] MEDS ORDERED: ONDANSETRON 4 MG/2 ML VIAL IVP PRN (22:22)
[2018-02-21] MEDS ORDERED: ONDANSETRON DISINTEGRATING 4 MG TAB PO PRN (22:22)
--- NOTE | 2018-02-22 00:13 | PDGENHP ---
History and Physical - Chief Complaint Unresponsiveness spells - History of Present Illness 72 yo M w/ hx of CAD s/p CABG, CVA, vascular dementia, Afib/flutter transferred to [facility] from [facility] for further evaluation of unresponsive spells. The patient was initially admitted to [facility] on 02/20 after he was witnessed to suffer two unresponsive spells at his nursing facility. He suffered another similar spell in the [facility] ED per their documentation. These spells are described as eyes open but unresponsive with mild diaphoresis, and mild bradycardia (high 40s, low 50s). He returns to baseline mental status fairly quickly after these spells. Work-up at [facility] was mostly unremarkable including laboratory work-up, CT Head, TTE (normal EF, normal LV/RV size and wall motion, mild MRm mild TR, est PASP 32, LA mod enlarged). [facility] records reviewed and available in patient's chart. Upon my evaluation the patient is pleasant, alert and oriented x3, and without complaint. He is aware of why he is in the hospital but cannot provide any additional details as to the nature of these spells. He specifically denies fever, chest pain, palpitations, and shortness of breath. History Information - Allergies/Home Medication List Allergies/Adverse Reactions: No Known Allergies Allergy (Verified 09/13/17 10:09) Home Medications: Apixaban [Eliquis] 2.5 mg PO BID 02/21/18 [Last Taken 02/21/18 08:00] Aspirin EC [Aspirin EC 81 mg (*)] 81 mg PO DAILY 02/21/18 [Last Taken 02/21/18 10:23] Atorvastatin Calcium [Lipitor 10 mg (*)] 10 mg PO HS 02/21/18 [Last Taken ] Carvedilol [Coreg (*)] 3.125 mg PO BIDMEAL 02/21/18 [Last Taken 02/21/18 09:21] Cholecalciferol Vit D3 [Vitamin D3 (*)] 1,000 units PO DAILY 02/21/18 [Last Taken 02/21/18] Furosemide [Lasix 20 MG (*)] 20 mg PO TUTHSA@0700 02/21/18 [Last Taken 02/19/18] Furosemide [Lasix 40 MG (*)] 40 mg PO MOWEFR@07 02/21/18 [Last Taken 02/21/18] Magnesium Oxide [Magnesium Oxide 400 mg (*)] 400 mg PO BID 02/21/18 [Last Taken 02/21/18 11:00] Memantine HCl [Namenda 5 mg (*)] 5 mg PO HS 02/21/18 [Last Taken 02/20/18] amLODIPine BESYLATE [Amlodipine Besylate] 10 mg PO DAILY 02/21/18 [Last Taken ] I have personally reviewed and updated: family history, medical history - Past Medical History coronary artery disease, CVA, hypertension Additional medical history: Transient SVT/atrial flutter in October of 2016. Episode of wandering with THC intoxication and dementia October 2016 - Surgical History Reports: coronary bypass surgery Additional surgical history: hip replacement - Family History Positive for: CAD - Social History Smoking Status: Never smoked Additional social history: Lives at [facility], has a neighbor/friend who ambulates with him daily Review of Systems Review of Systems: ROS: 10pt was reviewed & negative except for what was stated in HPI & below Physical Exam Physical Exam: Temp Pulse Resp BP Pulse Ox 36.7 C 56 L 16 130/87 H 96 02/21/18 23:15 02/21/18 23:15 02/21/18 23:15 02/21/18 23:15 02/21/18 23:15 Constitutional: no apparent distress, not in pain Eyes: PERRL, EOMI Ears, Nose, Mouth, Throat: moist mucous membranes, no oral mucosal ulcers Cardiovascular: regular rate and rhythym, systolic murmur Respiratory: no respiratory distress, clear to auscultation Gastrointestinal: normoactive bowel sounds, soft, non-tender abdomen Skin: warm, normal color Musculoskeletal: full muscle strength, no muscle tenderness Neurologic: AAOx3, other (Expressive aphasia noted), No weakness, No numbness Psychiatric: interacting appropriately, not anxious Assessment & Plan Assessment: 72 yo M w/ hx of CAD s/p CABG, CVA, vascular dementia, Afib/flutter transferred to [facility] from [facility] for further evaluation of unresponsive spells. Plan: 1. Unresponsive spells - Per documentation from [facility] the spells seem most consistent with absence seizures. Arrhythmia is another possible etiology, although less likely. Work-up at [facility] was mostly unremarkable including laboratory work-up, CT Head, TTE (normal EF, normal LV/RV size and wall motion, mild MR, mild TR, est PASP 32, LA mod enlarged). ECG notable for STD's in anterior leads but this is unchanged from prior obtained in November. Telemetry strips included with transfer documentation do not show any arrhythmias that could be causative. - Observe in PCU - Monitor on telemetry - Will consult neurology to consider possibility of seizures and further work- up or treatment 2. Chronic systolic HF - EF normal on TTE obtained at [facility]; this is improved from EF of 30% on TTE performed here in June of 2017. He appears well compensated and euvolemic on my examination. - Continue home medications 3. CAD s/p CABG - He denies chest pain at this time, continue home ASA, statin, BB. 4. Hx Afib/flutter - In sinus rhythm on telemetry during my evaluation. Continue apixaban. 5. Hx of CVA, vascular dementia - Expressive aphasia at baseline, continue memantine. Diet - Regular Code - Full Ppx - apixaban Dispo - Admit under observation status
[2018-02-22 06:38] LABS: PLATELET COUNT 119 10^3/uL (150-400)
[2018-02-22] MEDS ORDERED: FUROSEMIDE 20 MG TAB PO SCH (07:00)
[2018-02-22] MEDS ORDERED: CARVEDILOL 3.125 MG TAB PO SCH (08:00)
[2018-02-22] MEDS ORDERED: MAGNESIUM OXIDE 400 MG TAB PO SCH (09:00)
[2018-02-22] MEDS ORDERED: ASPIRIN EC 81 MG TAB PO SCH (09:00)
[2018-02-22] MEDS ORDERED: CHOLECALCIFEROL VIT D3 1,000 UNITS TAB PO SCH (09:00)
[2018-02-22] MEDS ORDERED: APIXABAN 2.5 MG TAB PO SCH (09:00)
[2018-02-22 11:11] VITALS: BP 124/86
--- NOTE | 2018-02-22 12:20 | NEUROPROG ---
Assessment: HOSPITAL NEUROLOGY CONSULT REQUESTING: Armando Ambriz MD REASON: spells HPI: 72 year old right-handed man with a history of afib, CAD s/p CABG, multiple ischemic strokes (including cortical) with residual expressive aphasia, cannabis abuse and dementia who presented in direct hospital transfer from [facility] for evaluation of spells. History is provided by outisde record review and his son who is at bedside. Patient lives independently but attends a day program once weekly. He was there on 02/20 and he was observed by staff to have an event where he was seemingly unresponsive for 30 seconds or so. They were concerned because he also had a bruise from a recent fall, and given his anticoagulation they sent him to the ED to rule out a brain bleed. He had a CT head wo in the ED and it showed his chronic multifocal ischemic strokes, but nothing acute. He was admitted for further evaluation of his spells. Son was with him during his hospitalization at [facility]. He states the patient woke yesterday and had a typical event. Son states the patient has experienced these for a year or two. He describes the patient seemingly not responding to verbal stimuli, but looking around the room with his eyes and head like he's "getting his bearings. " This will last 30 seconds, then the patient will be at baseline more or less. Son is not sure about patient's ability to be aroused by tactile stimulation. No automatisms/motoric activity noted. He's never noted the patient to be still or have head/eye version. The event at [facility] on the floor was captured on tele and the nurse there indicated to the son that there were some EKG changes with the event, though this is not documented anywhere. Patient was planned to have a TTE and EEG to evaluate for perfusion issue vs seizure. However, due to insurance issues he needed to be transferred here for further testing. Son indicates these spells have been happening over the last 1-2 years and he notes them at least monthly. Patient has never had a true convulsion. No TBI, REAL ESTATE DEVELOPER infection, REAL ESTATE DEVELOPER instrumentation, collagen vascular disease. He has experienced multiple ischemic strokes with cortical involvement from his afib. Patient does have a baseline low resting heart rate - he was previously on AV phoenix blocking agents but these were stopped in 2015 due to episodes of presyncope, but they are now resumed. No indication of CP, palpitations, SOB, loss of postural tone with the spells. ROS: As per the HPI, otherwise a complete 12 point ROS was performed and is negative ALLERGIES AND MEDS: As recorded in the EMR - reviewed and reconciled PFSH: As per the intake H&P by Dr. Ambriz from today EXAM: VS reviewed in EMR GEN: WDWN laying in NAD HEENT: NCAT, sclera anicteric, conjunctiva not injected, MMM, oropharynx clear, no scalp tenderness NECK: supple, nontender, no meningismus CV: bradycardic, but RR s1 s2 w grade 2-3 systolic murmur best at LUSB. Carotid pulses 2+ wo bruit NEURO: MS: awake, alert, not oriented to lace, date, situation. Speech nondysarthric. He has clear expressive language difficulty, but can name and repeat and comprehend. Follows commands. Attends to both sides. Episodic memory impairment on casual conversation. Mood euthymic. Seemingly adequate fund of knowledge. He speaks with multiple references to [place]ese and Jehov[employer] culture, which is his baseline per son. CN: pupils 3mm round and reactive. Unable to visualize fundi. VFF. Primary gaze centered. Full ocular motility. Facial sensation preserved. Face symmetric. Hearing grossly intact to finger rub. Palatoglossal movements intact. Shoulder shrug and head turn strong. MOTOR: normal bulk/tone. No adventitial movements. Full power throughout. SENSORY: intact/symmetric LT/PP in all extremities. No extinction. COORD: no ataxia FN/HS. Ev preserved. REFLEX: plantars down. No clonus. DTRS 2/4. GAIT: deferred to PT safety eval DATA REVIEW: Labs reviewed in EMR PERSONALLY INTERPRETED RESULTS AND DATA: Nil IMPRESSION AND RECOMMENDATIONS: // SPELLS OF IMPAIRED AWARENESS Patient with longstanding episodic brief spells where he is not responsive to verbal stimuli, but seems to be looking around the room. Differential includes focal seizures with impaired awareness (substrate cortical strokes), behavioral spells related to dementia, diminished perfusion from CV issue. Discussed how the best way to characterize these spells would be to capture them on EEG/EKG monitoring. Since this is not an emergent situation, I don't think inpatient EEG is warranted, as this would also only be a brief study. I recommend outpatient follow up for 4 hour vEEG monitoring. If we are unable to capture these spells with that study, then would likely need further monitoring at an epilepsy monitoring unit. We discussed a trial of antiseizure medication, but patient and son declined stating they want to know what they are treating first. Patient is not driving. Advised on safety precautions including not swimming/ tub bathing alone, not climbing heights, not operating heavy machinery and not performing any other activity that could put himself or others in harm's way due to spells of impaired awareness. Follow up in neurology clinic within 2 weeks to arrange 4 hour vEEG. They are welcome to seek consultation with [facility] Neurology Epilepsy Section straight away for consideration of inpatient monitoring, as well. Cardiac workup per primary team. Will sign off. Objective: Vital Signs Temp Pulse Resp BP Pulse Ox 36.7 C 63 12 124/86 H 92 02/22/18 11:10 02/22/18 11:10 02/22/18 11:10 02/22/18 11:10 02/22/18 11:10 Laboratory Results 02/22/18 04:01 02/22/18 04:01 02/21/18 02/22/18 02/23/18 05:59 05:59 05:59 Intake Total 100 Output Total 1 Balance 100 -1 Allergies/Adverse Reactions: No Known Allergies Allergy (Verified 09/13/17 10:09)
--- NOTE | 2018-02-22 14:10 | PDDCSUM ---
Discharge Summary Discharge Summary: Dates of service 02/21-02/22/18 Consultations: neurology Procedures performed: none Hospital course by problem: Assessment: 72 yo M w/ hx of CAD s/p CABG, CVA, vascular dementia, Afib/flutter transferred to [facility] from [facility] for further evaluation of unresponsive spells. Plan: #. Unresponsive spells - by hx sounds most c/w absence seizures. Patient had w/ u at [facility]'s including head CT, TTE, ECG all essentially unremarkable. Tele without significant arrythmia. Neurology evaluation appreciated, plan for 4 hour EEG to be performed in coming day as an OP. Seizure precautions stressed although patient does not drive alread # chronic systolic heart failure: appears euvolemic, EF seems to have normalized by TTE performed at [facility] # hx of CAD/CABG # hx a fib/flutter: currently on SR # hx of CVA/vascular dementia: expressive aphasia at baseline, patient able to communicate but much of what he says is nonsensical Dc back home f/u with neurology/pcp Care plan reviewed with patients son present at bedside.
--- NOTE | 2018-02-22 14:40 | ASMTLACE ---
LACE Length of stay for Answers: Less than 1 day current admission Acuity / Level of Answers: No Care: Did the patient have an inpatient admission? Comorbidities - select Answers: Cerebrovascular disease all that apply (CVA, TIA, aneurysms, vasc ular dementia) Coronary Artery Disease # of Emergency department Answers: 1-2 visits in the last 6 months Score: 4 Date Signed: 02/22/2018 02:39 PM Electronically Signed By:Carmen Burrows LCSW
--- NOTE | 2018-02-22 14:40 | ASMTCMCOM ---
CM Note CM Note Notes: Pt admitted OBS and will DC today with no DC needs. Date Signed: 02/22/2018 02:40 PM Electronically Signed By:Carmen Burrows LCSW
[2018-02-22] MEDS ORDERED: MEMANTINE HCL 5 MG TAB PO SCH (21:00)
[2018-02-22] MEDS ORDERED: ATORVASTATIN CALCIUM 10 MG TAB PO SCH (21:00)
[2018-02-24] MEDS ORDERED: FUROSEMIDE 40 MG TAB PO SCH (07:00)
== END 2018-02-22 14:53 | disposition home or self-care (01) ==
LOC: F2W 21:43
PROVIDERS: ADMIT Internal Medicine; ATTEND Internal Medicine
DX: R40.4 Transient alteration of awareness (principal); I48.3 Typical atrial flutter; F01.50 Vascular dementia, unspecified severity, without behavioral disturbance, psychotic disturbance, mood disturbance, and anxiety; I25.10 Atherosclerotic heart disease of native coronary artery without angina pectoris; Z95.5 Presence of coronary angioplasty implant and graft; Z86.73 Personal history of transient ischemic attack (TIA), and cerebral infarction without residual deficits
CPT/HCPCS: G0378 ×2

== ENCOUNTER 2018-04-18 10:26 | Emergency (ER) | payer OTHER ==
[2018-04-18] MEDS ORDERED: NS 500 ML IV ONE (10:48)
--- NOTE | 2018-04-18 10:52 | EDPHY ---
HPI/HX/ROS/PE/MDM Narrative: CHIEF COMPLAINT: Seizure HPI: The patient is a 72-year-old male with multiple medical problems including prior CABG, history of seizure disorder, CVA, vascular dementia, AFib. He was admitted to the hospital at the end of January for "unresponsive spells" per chart. Per EMS, the patient's neighbor apparently witnessed him having a 2 min long tonic-clonic seizure at his assisted living facility earlier today. No history is obtainable from patient. He denies any complaints, but cannot describe any of his history to me. REVIEW OF SYSTEMS: Negative 10 point review of systems, but patient seems to say no to just about everything. PMH: Includes CABG, CVA, vascular dementia, atrial fibrillation, seizure disorder. SOCIAL HISTORY: Lives at [facility]. Disabled. No history of alcohol or drug abuse. PHYSICAL EXAM: General:Patient is alert, in no acute distress. Is sitting up in bed, awake and appears comfortable. ENT:Eyes are normal to inspection. ENT inspection normal. Neck: Normal inspection. Full range of motion. Respiratory:No respiratory distress. Breath sounds normal bilaterally. Cardiovascular: Regular rate and rhythm. Strong peripheral pulses. Normal cap refill. Abdomen:The abdomen is nontender to palpation. There are no peritoneal signs. There are normal bowel sounds. Back: Normal to inspection. No tenderness to palpation. Skin: Normal color. No rash. Warm and dry. Extremities: Normal appearance. Full range of motion. Neuro: Answers with one-word responses only. Normal motor function. Normal sensory function. MDM: This patient presents with report of a 2 min generalized tonic-clonic seizure, in setting of known seizure disorder. On exam he has no complaints. We performed a CT scan of his head part because he is on Eliquis, but this was negative for signs of trauma or bleed. Patient remained awake and alert throughout his emergency department stay without any with the seizure episodes or concerns. Our pillowcase cleaner was extensively involved in spoke with the patient's this tendons as well as case management is living facility. Ultimately, the patient would like to go back home and refuses transfer to higher level of care. ct manager informed me that his family is okay with this. I see no signs of sepsis, ACS, epidural hematoma or subdural hematoma. - Data Points Imaging Results: Imaging Impressions Head CT 04/18/18 10:48 Impression: 1. No acute intracranial process. 2. Encephalomalacic changes in the left frontoparietal lobe from old ischemia. 3. Age-appropriate generalized cerebral volume loss with sequela of chronic microvascular ischemic disease. Findings and recommendations discussed with Wil Reese MD at 1117 hour, 04/18/2018. Laboratory Results: Laboratory Results 04/18/18 10:30 04/18/18 10:30 04/18/18 04/18/18 04/18/18 11:01 10:30 10:30 WBC 8.16 10^3/uL 10^3/uL (3.80-9.50) RBC 4.89 10^6/uL 10^6/uL (4.40-6.38) Hgb 15.4 g/dL g/dL (13.7-17.5) Hct 44.7 % % (40.0-51.0) MCV 91.4 fL fL (81.5-99.8) MCH 31.5 pg pg (27.9-34.1) MCHC 34.5 g/dL g/dL (32.4-36.7) RDW 12.5 % % (11.5-15.2) Plt Count 134 10^3/uL L 10^3/uL (150-400) MPV 12.1 fL H fL (8.7-11.7) Neut % (Auto) 55.5 % % (39.3-74.2) Lymph % (Auto) 28.7 % % (15.0-45.0) [place] % (Auto) 12.5 % % (4.5-13.0) Eos % (Auto) 2.3 % % (0.6-7.6) Baso % (Auto) 0.9 % % (0.3-1.7) Nucleat RBC Rel Count 0.0 % % (0.0-0.2) Absolute Neuts (auto) 4.53 10^3/uL 10^3/uL (1.70-6.50) Absolute Lymphs (auto) 2.34 10^3/uL 10^3/uL (1.00-3.00) Absolute Monos (auto) 1.02 10^3/uL H 10^3/uL (0.30-0.80) Absolute Eos (auto) 0.19 10^3/uL 10^3/uL (0.03-0.40) Absolute Basos (auto) 0.07 10^3/uL 10^3/uL (0.02-0.10) Absolute Nucleated RBC 0.00 10^3/uL 10^3/uL (0-0.01) Immature Gran % 0.1 % % (0.0-1.1) Immature Gran # 0.01 10^3/uL 10^3/uL (0.00-0.10) Sodium 140 mEq/L mEq/L (135-145) Potassium 3.7 mEq/L mEq/L (3.3-5.0) Chloride 100 mEq/L mEq/L (97-110) Carbon Dioxide 28 mEq/l mEq/l (22-31) Anion Gap 12 mEq/L mEq/L (8-16) BUN 23 mg/dL mg/dL (7-23) Creatinine 1.0 mg/dL mg/dL (0.7-1.3) Estimated GFR > 60 Glucose 103 mg/dL H mg/dL (70-100) Calcium 9.3 mg/dL mg/dL (8.5-10.4) POC Troponin I 0.01 ng/mL ng/mL (0.00-0.08) Medications Given: Discontinued Medications Sodium Chloride (Ns) 500 mls @ 0 mls/hr IV EDNOW ONE; Wide Open PRN Reason: Protocol Stop: 04/18/18 10:49 Last Admin: 04/18/18 11:21 Dose: 500 mls Point of Care Test Results: Chemistry 04/18/18 11:01 POC Troponin I 0.01 ng/mL ng/mL (0.00-0.08) General Time Seen by Provider: 04/18/18 10:41 Initial Vital Signs: Initial Vital Signs Temperature (C) 36.7 C 04/18/18 10:42 Heart Rate 50 L 04/18/18 10:42 Respiratory Rate 16 04/18/18 10:42 Blood Pressure 144/92 H 04/18/18 10:42 O2 Sat (%) 94 04/18/18 10:42 O2 Delivery Mode Room Air Allergies/Adverse Reactions: No Known Allergies Allergy (Verified 09/13/17 10:09) Home Medications: Medication Instructions Recorded Apixaban [Eliquis] 2.5 mg PO BID 02/21/18 Aspirin EC [Aspirin EC 81 mg (*)] 81 mg PO DAILY 02/21/18 Atorvastatin Calcium [Lipitor 10 10 mg PO HS 02/21/18 mg (*)] Carvedilol [Coreg (*)] 3.125 mg PO BIDMEAL 02/21/18 Memantine HCl [Namenda 5 mg (*)] 5 mg PO HS 02/21/18 Acetaminophen [Tylenol 325mg (*)] 650 mg PO Q4HRS PRN tab 02/22/18 Amiodarone HCl 04/18/18 Donepezil HCl 04/18/18 Lisinopril 04/18/18 Vitamin B12 04/18/18 Vitamin D3 04/18/18 Departure - Departure Disposition: Home, Routine, Self-Care Clinical Impression: Seizure disorder Condition: Good Instructions: Epilepsy (ED) Additional Instructions: Follow-up with your primary doctor within 72 hours. Return to the Emergency Department for fever, chest pain, shortness of breath, increasing pain or other worsening of condition. Referrals: NONE *PRIMARY CARE P,. [Primary Care Provider] - As per Instructions
[2018-04-18 11:05] LABS: PLATELET COUNT 134 10^3/uL (150-400)
[2018-04-18 11:23] VITALS: BP 129/91
--- NOTE | 2018-04-18 14:11 | ASMTCMCOM ---
CM Note CM Note Notes: Pt. seen at the request of ED Dr. Reese for concerns regarding current level of care. Pt. presented in FED from [facility]. He was accompanied by a friend who lives across the srinivasan at [facility] (Sharon). Sharon witnessed a 2 minute long seizure prior to admission. Pt was unable to provide history to Dr. Reese. This SW spoke with Royal at [facility] ([phone]). Royal indicated that they have had concerns about the pt. living independently as he has a history wandering, dementia and seizure. He also has a long history of marijuana use. Royal provided information for the [facility] program and indicated that the pt. will be moving to assisted living, estimated time May 24. The pt.s two sons, Pawel and Sonu are both actively involved with the pt.s care but are out of town. Royal suggested that [facility] may be able to assist with SNF placement for respite care until assisted living is in place. She provided information to [facility] ([phone]). This SW spoke with Deandra who indicated that the pt. was prescribed Keppra one week prior, starting with 500MG ER and increasing to 1000MG ER in 5 days. She stated that she would inquire about SNF. Tara ([phone]) from [facility] called and indicated that the client is at baseline as he smokes high amounts of cannabis and the only concern was the more acute seizure activity. She indicated that the pt. has been placed in respite in the past but left AMA. She provided contact at [facility] who indicated bed availability and requested a referral. The SW spoke with the pt. who indicated that he would not go to respite care and stated he wanted to go home today. Sharon stated that she could look in on him regularly and contact his sons if needed. Royal was informed of the decision, no further action at this time. Date Signed: 04/18/2018 02:11 PM Electronically Signed By:Matilde Edwards LCSW
--- NOTE | 2018-04-18 14:14 | ASMTLACE ---
LACE Length of stay for Answers: Less than 1 day current admission Acuity / Level of Answers: No Care: Did the patient have an inpatient admission? Comorbidities - select Answers: Dementia all that apply # of Emergency department Answers: 1-2 visits in the last 6 months Social determinants Answers: History of substance abuse (ETOH, street drugs, prescription drugs, etc.) Score: 7 Date Signed: 04/18/2018 02:14 PM Electronically Signed By:Matilde Edwards LCSW
== END 2018-04-18 13:35 | disposition home or self-care (01) ==
LOC: EDUNIT#
DX: G40.909 Epilepsy, unspecified, not intractable, without status epilepticus (principal)
CPT/HCPCS: 84484-PO

== ENCOUNTER 2018-06-10 13:13 | Emergency (ER) | payer OTHER ==
--- NOTE | 2018-06-10 13:24 | EDPHY ---
H & P Time Seen by Provider: 06/10/18 13:20 HPI/ROS: CHIEF COMPLAINT: altered mental status HISTORY OF PRESENT ILLNESS: The patient is a 72-year-old male who presents emergency department from his assisted living care facility. Per EMS report, the patient was in the lunch room. He may have had a short episode of choking with this is unconfirmed. When EMS arrived the patient was talkative and had normal breath sounds. He became agitated and combative. He ultimately need to be restrained. He was given Versed 5 mg I M. Plastic Cutter states that the patient had a negative stroke scale prior to his agitation. The patient's son arrived and stated that the patient was at his baseline. The patient's son state that he intermittently becomes agitated and angry and this is not atypical. The patient calmed after receiving the Versed. Glucose was normal. REVIEW OF SYSTEMS: 10 systems were reveiwed and are negative with the exception of the elements mentioned in the history of present illness. Past Medical/Surgical History: Includes dementia, CVA, coronary artery disease, atrial fibrillation, seizure disorder Past surgical history: Includes CABG Social history: The patient lives in assisted living. No drugs or alcohol Smoking Status: Never smoked Physical Exam: Vitals noted GENERAL: No acute distress, alert. Sleepy appearing but opens eyes to voice. HEENT: Eyes normal to inspection, normal pharynx, no signs of dehydration. NECK: Normal, supple. RESPIRATORY: Clear to auscultation bilaterally, no rales, rhonchi or wheezing. CVS: Regular rate and rhythm, no rubs, murmurs, or gallops. ABDOMEN: Soft, nontender, nondistended, no organomegaly. Benign BACK: Normal to inspection, no CVA tenderness. SKIN: Normal color, no rash, warm, dry. No pallor. EXTREMITIES: Mild +1 pedal edema bilaterally no calf tenderness, no Homans sign or cords, no joint swelling. NEURO/PSYCH: Patient is somnolent appearing. He opens his eyes to voice. Follows simple commands. Moves all extremities. Normal motor sensory exam. No obvious cranial nerve deficit. Constitutional: Initial Vital Signs Temperature (C) 36.3 C 06/10/18 13:18 Heart Rate 60 06/10/18 13:18 Respiratory Rate 18 06/10/18 13:18 Blood Pressure 99/70 L 06/10/18 13:18 O2 Sat (%) 96 06/10/18 13:18 O2 Delivery Mode Room Air Allergies/Adverse Reactions: donepezil Allergy (Verified 06/10/18 13:49) lisinopril Allergy (Verified 06/10/18 13:49) metoprolol Allergy (Verified 06/10/18 13:49) Home Medications: Medication Instructions Recorded Apixaban [Eliquis] 2.5 mg PO BID 02/21/18 Aspirin EC [Aspirin EC 81 mg (*)] 81 mg PO DAILY 02/21/18 Atorvastatin Calcium [Lipitor 10 10 mg PO HS 02/21/18 mg (*)] Carvedilol [Coreg (*)] 3.125 mg PO BIDMEAL 02/21/18 Memantine HCl [Namenda 5 mg (*)] 5 mg PO HS 02/21/18 Acetaminophen [Tylenol 325mg (*)] 650 mg PO Q4HRS PRN tab 02/22/18 Amiodarone HCl 04/18/18 Donepezil HCl 04/18/18 Lisinopril 04/18/18 Vitamin B12 04/18/18 Vitamin D3 04/18/18 Amlodipine Besylate 06/10/18 Furosemide 06/10/18 Keppra 06/10/18 Namenda 5 mg (*) 06/10/18 Medical Decision Making - Diagnostics Imaging Results: Imaging Impressions Head CT 06/10/18 13:17 Impression: 1. No acute findings. If symptoms persist and clinical suspicion warrants, consider MRI. 2. Additional findings as above. Findings discussed with Dr. Bertha Sprague on June 10, 2018 at 1401 hours. Chest X-Ray 06/10/18 13:34 Impression: Mild cardiac silhouette enlargement and sequela of prior CABG, with no acute abnormality identified. ED Course/Re-evaluation: In the emergency department I met EMS on arrival. I took report from the recreation therapy aides teacher. Plastic Cutter states the patient did become incontinent in route after receiving the Versed. Head CT: No acute disease noted. Please refer the dictated report by Dr. Barger. Patient's CBC was unremarkable. Chemistry panel was notable for a low CO2 at 20. Calcium low at 7.5. Glucose was normal. Troponin was 0. The the 1445: I rechecked the patient. His son was present in the room. He states his mental status is returning. He still seems sleepy but better. The son confirms a history from when he was on scene. Differential Diagnosis: My differential includes but not limited to altered mental status, ischemic CVA , hemorrhagic CVA, ACS, acute TN, dysrhythmia, electrolyte abnormality, sugar abnormality, hypoxic, airway occlusion, choking episode, seizure - Data Points Laboratory Results: Laboratory Results 06/10/18 13:40 06/10/18 13:40 06/10/18 06/10/18 06/10/18 13:59 13:40 13:40 WBC 6.18 10^3/uL 10^3/uL (3.80-9.50) RBC 3.84 10^6/uL L 10^6/uL (4.40-6.38) Hgb 12.1 g/dL L g/dL (13.7-17.5) Hct 35.6 % L % (40.0-51.0) MCV 92.7 fL fL (81.5-99.8) MCH 31.5 pg pg (27.9-34.1) MCHC 34.0 g/dL g/dL (32.4-36.7) RDW 12.6 % % (11.5-15.2) Plt Count 84 10^3/uL L 10^3/uL (150-400) MPV 11.9 fL H fL (8.7-11.7) Neut % (Auto) 66.9 % % (39.3-74.2) Lymph % (Auto) 18.6 % % (15.0-45.0) [place] % (Auto) 11.0 % % (4.5-13.0) Eos % (Auto) 2.6 % % (0.6-7.6) Baso % (Auto) 0.6 % % (0.3-1.7) Nucleat RBC Rel Count 0.0 % % (0.0-0.2) Absolute Neuts (auto) 4.13 10^3/uL 10^3/uL (1.70-6.50) Absolute Lymphs (auto) 1.15 10^3/uL 10^3/uL (1.00-3.00) Absolute Monos (auto) 0.68 10^3/uL 10^3/uL (0.30-0.80) Absolute Eos (auto) 0.16 10^3/uL 10^3/uL (0.03-0.40) Absolute Basos (auto) 0.04 10^3/uL 10^3/uL (0.02-0.10) Absolute Nucleated RBC 0.00 10^3/uL 10^3/uL (0-0.01) Immature Gran % 0.3 % % (0.0-1.1) Immature Gran # 0.02 10^3/uL 10^3/uL (0.00-0.10) Sodium 140 mEq/L mEq/L (135-145) Potassium 3.4 mEq/L mEq/L (3.3-5.0) Chloride 109 mEq/L mEq/L (97-110) Carbon Dioxide 20 mEq/l L mEq/l (22-31) Anion Gap 11 mEq/L mEq/L (6-14) BUN 23 mg/dL mg/dL (7-23) Creatinine 0.8 mg/dL mg/dL (0.7-1.3) Estimated GFR > 60 Glucose 127 mg/dL H mg/dL (70-100) Calcium 7.5 mg/dL L mg/dL (8.5-10.4) POC Troponin I 0.00 ng/mL ng/mL (0.00-0.08) Medications Given: Discontinued Medications Sodium Chloride (Ns) 500 mls @ 0 mls/hr IV ONCE ONE; Wide Open PRN Reason: Protocol Stop: 06/10/18 13:34 Last Admin: 06/10/18 13:43 Dose: 500 mls Point of Care Test Results: Chemistry 06/10/18 13:59 POC Troponin I 0.00 ng/mL ng/mL (0.00-0.08) Departure - Departure Disposition: Home, Routine, Self-Care Clinical Impression: Altered mental status Qualifiers: Altered mental status type: unspecified Qualified Code(s): R41.82 - Altered mental status, unspecified Condition: Good Instructions: Altered Mental Status (ED) Additional Instructions: Return turn with increasing pain, confusion, weakness, or any other concerns. Referrals: Ester Zamora MD [Primary Care Provider] - 2-3 days without fail
[2018-06-10] MEDS ORDERED: NS 500 ML IV ONE (13:33)
[2018-06-10 13:59] LABS: PLATELET COUNT 84 10^3/uL (150-400)
[2018-06-10 17:40] VITALS: BP 159/99
--- NOTE | 2018-06-10 20:31 | CPEKG ---
Test Reason : OPEN Blood Pressure : / mmHG Vent. Rate : 053 BPM Atrial Rate : 053 BPM P-R Int : 149 ms QRS Dur : 116 ms QT Int : 484 ms P-R-T Axes : 041 051 080 degrees QTc Int : 455 ms Sinus rhythm Nonspecific intraventricular conduction delay Confirmed by Bertha Sprague ([id number]) on 06/10/2018 8:30:55 PM Referred By: Confirmed By:Bertha Sprague
== END 2018-06-10 17:40 | disposition home or self-care (01) ==
LOC: EDUNIT#
DX: R41.82 Altered mental status, unspecified (principal); E86.9 Volume depletion, unspecified; Z86.73 Personal history of transient ischemic attack (TIA), and cerebral infarction without residual deficits; I25.10 Atherosclerotic heart disease of native coronary artery without angina pectoris; Z86.69 Personal history of other diseases of the nervous system and sense organs
CPT/HCPCS: 84484-PO

== ENCOUNTER 2018-06-23 12:14 | Emergency (ER) | payer OTHER ==
[2018-06-23] MEDS ORDERED: NS 1,000 ML IV ONE (12:22)
--- NOTE | 2018-06-23 12:23 | EDPHY ---
H & P Time Seen by Provider: 06/23/18 12:20 HPI/ROS: CHIEF COMPLAINT: Seizure HISTORY OF PRESENT ILLNESS: The patient is a 72-year-old man with a history of seizure disorder and CVA. He also has a history of atrial fibrillation is and is on Eliquis. He had a seizure this morning at [facility] during the exercise program. They are concerned about his blood thinner and possible head injury. The patient was initially postictal but is now back to baseline. This was described as one of his typical seizures. He states that he has about 1 per week. He does take Keppra faithfully. He denies headache. He is slightly confused but this is baseline. Severity: Severe Modifying factors: Resolving REVIEW OF SYSTEMS: Constitutional: denies: chills, fever, recent illness, recent injury EENTM: denies: blurred vision, double vision, nose congestion Respiratory: denies: cough, shortness of breath Cardiac: denies: chest pain, irregular heart rate, lightheadedness, palpitations Gastrointestinal/Abdominal: denies: abdominal pain, diarrhea, nausea, vomiting, blood streaked stools Genitourinary: denies: dysuria, frequency, hematuria, pain Musculoskeletal: denies: joint pain, muscle pain Skin: denies: lesions, rash, jaundice, bruising Neurological: denies: headache, numbness, paresthesia, tingling, dizziness, weakness Hematologic/Lymphatic: denies: blood clots, easy bleeding, easy bruising Immunologic/allergic: denies: HIV/AIDS, transplant 10 systems reviewed and negative except as noted EXAM: GENERAL: Well-appearing, well-nourished and in no acute distress. HEAD: Atraumatic, normocephalic. EYES: Pupils equal round and reactive to light, extraocular movements intact, sclera anicteric, conjunctiva are normal. ENT: TMs normal, nares patent, oropharynx clear without exudates. Moist mucous membranes. NECK: Normal range of motion, supple without lymphadenopathy or JVD. LUNGS: Breath sounds clear to auscultation bilaterally and equal. No wheezes rales or rhonchi. HEART: Regular rate and rhythm without murmurs, rubs or gallops. ABDOMEN: Soft, nontender, normoactive bowel sounds. No guarding, no rebound. No masses appreciated. BACK: No CVA tenderness, no spinal tenderness, step-offs or deformities EXTREMITIES: Normal range of motion, no pitting or edema. No clubbing or cyanosis. NEUROLOGICAL: Cranial nerves II through XII grossly intact. Normal speech, normal gait. 5/5 strength, normal movement in all extremities, normal sensation , normal reflexes PSYCH: Normal mood, normal affect. SKIN: Warm, dry, normal turgor, no visible rashes or lesions. Source: Patient, EMS, care home records Exam Limitations: No limitations - Medical/Surgical History Hx Asthma: No Hx Chronic Respiratory Disease: No Hx Diabetes: No Hx Cardiac Disease: Yes Hx Renal Disease: No Hx Cirrhosis: No Hx Alcoholism: No Hx HIV/AIDS: No Hx Splenectomy or Spleen Trauma: No Other PMH: A-fib/flutter, CHF, seizures, HTN, DEMENTIA, CVA'S X 2 2011. RIGHT HIP REPLACEMENT. Bypass X4 arthritis knees and ankles - Family History Significant Family History: No pertinent family hx - Social History Smoking Status: Never smoked Alcohol Use: Sober Drug Use: None Constitutional: Initial Vital Signs Temperature (C) 37.2 C 06/23/18 12:22 Heart Rate 90 06/23/18 12:22 Respiratory Rate 16 06/23/18 12:22 Blood Pressure 134/94 H 06/23/18 12:22 O2 Sat (%) 95 06/23/18 12:22 O2 Delivery Mode Room Air Allergies/Adverse Reactions: donepezil Allergy (Verified 06/10/18 13:49) lisinopril Allergy (Verified 06/10/18 13:49) metoprolol Allergy (Verified 06/10/18 13:49) Home Medications: Medication Instructions Recorded Apixaban [Eliquis] 2.5 mg PO BID 02/21/18 Aspirin EC [Aspirin EC 81 mg (*)] 81 mg PO DAILY 02/21/18 Atorvastatin Calcium [Lipitor 10 10 mg PO HS 02/21/18 mg (*)] Carvedilol [Coreg (*)] 3.125 mg PO BIDMEAL 02/21/18 Memantine HCl [Namenda 5 mg (*)] 5 mg PO HS 02/21/18 Acetaminophen [Tylenol 325mg (*)] 650 mg PO Q4HRS PRN tab 02/22/18 Amiodarone HCl 04/18/18 Donepezil HCl 04/18/18 Lisinopril 04/18/18 Vitamin B12 04/18/18 Vitamin D3 04/18/18 Amlodipine Besylate 06/10/18 Furosemide 06/10/18 Keppra 06/10/18 Namenda 5 mg (*) 06/10/18 Medical Decision Making - Diagnostics Imaging: Discussed imaging studies w/ body recall instructor Radiologist ED Course/Re-evaluation: 12:50 p.m. the patient is complaining of low back pain which she states is chronic and for which she takes pain medication. However I do not see pain medication listed on his list other than Tylenol. He is somewhat confused have baseline. I will also images low back. 1:00 p.m. After speaking with the director case management she tells us the patient's low back pain is chronic and that he perseverates over it and is a thing new today. I will cancel his lumbar CT if it is not already been done. She states that he also takes his medication from a lock box and that it alarms if he does not take it and they can call to encourage him. 1:[address] is reassuring. His pain is controlled. Case management has been involved. There was some concern about possibly switching his anti seizure medications. I will leave this to his primary doctor. I also suggested that he discontinue his blood thinner. Case management has discussed this with the patient's prison. Differential Diagnosis: Partial list of the Differential diagnosis considered include but were not limited to; seizure, epilepsy, intracranial hemorrhage and although unlikely based on the history and physical exam, I also considered CVA, infection. - Data Points Laboratory Results: Laboratory Results 06/23/18 12:50 06/23/18 12:50 Medications Given: Discontinued Medications Hydromorphone HCl (Dilaudid) 0.5 mg IVP EDNOW ONE Stop: 06/23/18 12:54 Last Admin: 06/23/18 13:19 Dose: 0.5 mg Sodium Chloride (Ns) 1,000 mls @ 0 mls/hr IV ONCE ONE; Wide Open PRN Reason: Protocol Stop: 06/23/18 12:23 Last Admin: 06/23/18 12:39 Dose: 1,000 mls Departure - Departure Disposition: Home, Routine, Self-Care Clinical Impression: Seizure disorder Condition: Fair Instructions: Epilepsy (ED) Additional Instructions: It may be a good idea to discontinue your Eliquis because of your frequent seizures. I recommend that you talk to her primary doctor about this as well as possibly changing anti seizure medications if Keppra does not seem to be working well. Referrals: Patient,NotPresent [Unknown] - As per Instructions
[2018-06-23] MEDS ORDERED: HYDROmorphONE/DILAUDID 2 MG/ML INJ IVP ONE (12:53)
[2018-06-23 13:05] LABS: PLATELET COUNT 146 10^3/uL (150-400)
[2018-06-23 13:41] LABS: INR 1.19 (0.83-1.16); PROTIME(PATIENT) 15.3 SEC (12.0-15.0)
[2018-06-23 14:06] VITALS: BP 134/98
--- NOTE | 2018-06-24 09:45 | ASMTCMCOM ---
CM Note CM Note Notes: Late Entry from 06/23/18: Pt presented to the ED via EMS after having a witnessed seizure during an exercise program at [facility] ([phone]). Pt has a history of seizures and he also had a seizure on 06/21 and was seen at [facility] ED. Pt is awake, alert and stable upon arrival. Pt has a history of dementia, CVAx2; pt is slightly confused in the ED but this is his baseline. Pt is enrolled with [facility] ([phone]) program and is followed by Dr Zamora. This CM called and spoke Aryan and Silvia; confirmed that pt is in charge of taking his own medications which are in a Med Minder machine that [facility] refills every week. There is concern that pt may not be actually taking the medication when the machine alerts him. Pt states he does take his meds but is unable to tell what meds he takes or why he takes them. Malinda and Silvia state pt is usually really good about taking his own medication. Spoke leonardo Modi, Warehouse Inventory Clerk at [facility], and she states pt recently moved into their facility in 05/08/18 and they are concerned about him having 3 seizures over the past 2 weeks. Ly said she called and notified pt's sons Sonu (pt's MDPOA) and Pawel. Sonu is out of town at time and Pawel would come to the ED if necessary. Ly states that Sonu has vocalized concern over pt's new anti-seizure medication Keppra being the cause of pt's recent increase in seizures. This information was relayed to the [facility] team. We discussed the ED MD's recommendation that pt have his Eliquis d/c'd due to his high risk of falls d/t seizures and also to have his anti-seizure medication reviewed. Pt's head CT is negative and pt is ready for d/c. Spoke Rm and she said to arrange wheelchair transport and to have it billed to [facility]. This CM called [facility] per Silvia's first choice but they were unavailable for 5 hours; called other private WC transport companies and everyone was unavailable for several hours. Finally arranged WC transport via [facility]. CM available for further assistance if needed. Date Signed: 06/24/2018 09:45 AM Electronically Signed By:Yesy Rodriguez RN
== END 2018-06-23 15:25 | disposition home or self-care (01) ==
LOC: EDUNIT#
DX: G40.909 Epilepsy, unspecified, not intractable, without status epilepticus (principal); I48.91 Unspecified atrial fibrillation; I50.9 Heart failure, unspecified; I11.0 Hypertensive heart disease with heart failure; Z86.73 Personal history of transient ischemic attack (TIA), and cerebral infarction without residual deficits; Z95.9 Presence of cardiac and vascular implant and graft, unspecified; Z79.01 Long term (current) use of anticoagulants; F03.90 Unspecified dementia, unspecified severity, without behavioral disturbance, psychotic disturbance, mood disturbance, and anxiety
CPT/HCPCS: 96374; J1170

== ENCOUNTER → 2018-06-30 | Outpatient (CLI) | payer OTHER | LOC: CIMAGING 11:26 | PROVIDERS: ATTEND Nurse Practitioner Family | DX: M54.5 Low back pain (principal); R93.7 Abnormal findings on diagnostic imaging of other parts of musculoskeletal system; W19.XXXA Unspecified fall, initial encounter; Z96.641 Presence of right artificial hip joint | CPT/HCPCS: 72100-PO; 73521-PO ==

== ENCOUNTER → 2018-07-07 | Outpatient (CLI) | payer OTHER | LOC: CIMAGING 17:11 → EDSTATUS 17:16 | PROVIDERS: ATTEND Internal Medicine Geriatric Medicine | DX: R91.1 Solitary pulmonary nodule (principal) | CPT/HCPCS: 71250-PO ==